=== PATIENT | female | born 1960 | race Caucasian/White ===

== ENCOUNTER 2017-01-17 00:51 | Emergency (ER) | payer MEDICAID ==
[~2017-01-17] VITALS: Ht 152.4 cm; Wt 63.5 kg
[~2017-01-17 00:51] MED LIST: ALBUTEROL-200 PUFFS/ IH; ALBUTEROL2.5 MG/NEB IN; AMOXICILLIN500 M2 PO; CLARITIN 10MG T10 MG PO; FERROUS SULFAT325 M2 PO; HYDROXYZINE 25M25 MG PO; IPRATROPIUM 2.2.5 ML IH; LEVAQUIN500 MG PO; NICODERM C21 MG/24 H TD; OMNICEF 300 MG300 MG PO; PAXIL20 MG NG; PREDNISONE 20MG20 MG PO; SIMVASTATIN20 MG PO; SYMBICORT1 AE1 IH; VICODIN 5/500 T1 TAB PO; ZANTAC 150MG T150 MG PO; ZITHROMAX Z PA250 MG PO; ZITHROMAX Z-PA250 M1 PO; ZITHROMAX Z-PA250 M2 PO
[2017-01-17 00:53] VITALS: BP 106/68
--- NOTE | 2017-01-17 01:03 | Emergency Room Report ---
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 N Clinical Suspician of Infection? Y Mental Status: 1 - Regular (Normal Baseline) Sepsis Risk:Severe Sepsis Risk Have you (or family members/close friends) recently traveled outside the [place]? N If Yes, where/when: Have you had exposure to infectious disease within the past month? TB? Other? 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 No Angina: No [place]: No Hypertension? No Hyperlipidemia? Yes CHF? No DVT? No PE? No COPD? Yes Asthma? Yes Anemia? No GERD? No Gastric ulcers? No GI Bleed? No Hernia? No Thyroid Problems? No Hypothyroidism? No CVA? No Seizures? No Diabetes? No Renal Insuffiency? No End Stage Renal Disease? No UTI? Yes Stones? Yes BPH? No GB Disease: Yes Nephritic Syndrome? No Asplenia? No Hepatitis? No Sickle Cell Disease? No Arthritis? No Migraines? No Cataracts? No Glaucoma? No MRSA? No HIV? No TB? No Anxiety? No Depression? No Cancer? 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 Respiratory see HPI, cough, shortness of breath, wheezing Cardiovascular denies chest pain, denies palpitations, denies syncope Gastrointestinal denies abdominal pain, denies diarrhea, denies vomiting Genitourinary denies: dysuria, frequency, hesitancy, hematuria. Musculoskeletal denies back pain, denies joint pain, denies joint swelling, denies neck pain Skin denies rash Psychiatric/Neurological denies headache, denies seizure Physical Exam Vital Signs Vital Signs Date Time Temp Pulse Resp B/P Pulse O2 O2 Flow FiO2 Ox Delivery Rate 01/17 0143 140 28 107/58 60 4 01/17 0108 142 24 94/59 60 4 01/17 0059 145 30 62 01/17 0053 97.9 145 30 106/68 62 6 - WBC >12,000 or <4,000 or 10% bands? 2 or more SIRS Criteria Met? B/P:94/59 MAP:80 Creatinine >2.0? UA output<0.5ml/kg/hr for 2 hrs? Platelet count >100,000? Lactate >2.0mmol/1? INR >1.2 or PTT > than 60 sec? Evidence of Organ Dysfunction? Provider documented clinical suspician of infection? Y Sepsis Criteria Count: 3 Sepsis Risk: Severe Sepsis Risk General Appearance no apparent distress, cachetic Eye Exam - bilateral eye PERRL, bilateral eye EOMI Ear, Nose, Throat dry mm Neck non-tender Respiratory Status Yes: use of accessory muscles, non productive cough. No: respiratory distress. Lung Sounds bilateral: decreased breath sounds, wheezing. Cardiovascular regular rate/rhythm, systolic murmur Peripheral Pulses Pulses normal Yes Gastrointestinal soft Extremities pedal edema Strength 3 Lower Ext (L), 3 Lower Ext (R), 4 Upper Ext (L), 4 Upper Ext (R) Neurologic alert, no motor/sensory deficits Reflexes Reflexes normal No Mental status normal mood/affect Skin chronic clubing and cyanosis upper ext Comments pt with acute change in status with dec resp - pt was intubated and fluids and pressors started - pt was noted to have 101 rectal temp - cxr with et tube ok and see rn noted for her resusictation - pt will be transfered to as no icu beds in [place] - Medical Decision Making LABS/Meds/Orders Pt receiving controlled substance in ED? No Results/Orders Laboratory Tests 01/17/17 0130: Sodium 136, Potassium 4.1, Chloride 99, Carbon Dioxide 29, BUN 26 H, Creatinine 1.0, Estimated Creat Clear 62, Estimated GFR (MDRD) 57 L, Glucose 206 H, Calcium 8.3 L, Total Bilirubin 1.2 H, AST 31, ALT 17, Alkaline Phosphatase 196 H, Creatine Kinase 9 L, CK-MB (CK-2) Rel Index 5.6 H, CK and CKMB Interp < 0.5, Troponin I 0.03, B-Natriuretic Peptide 870 H, Total Protein 6.9, Albumin 3.0 L, Globulin 3.9 H, Albumin/Globulin Ratio 0.8 L 01/17/17 0101: ABG pH 7.36, ABG pCO2 (Temp Corrct 42.0, ABG pO2 (Temp Correct 36.0 *L, ABG HCO3 23.0, ABG Total CO2 24.8, ABG O2 Sat (Calculated) 67 *L, ABG Base Excess -1.9, Nikos Test ACCEPTABLE, Blood Gas Comments RIGHT RADIAL 01/17/17 0100: Lactic Acid 5.0 H, WBC 18.3 H, RBC 3.92 L, Hgb 13.6, Hct 43.3, MCV 110.6 H, RDW 15.7, Plt Count 97 L, MPV 9.2, Gran % 60.3, Gran # 11.0 H, Total Counted 100, Lymphocytes % 34.2, Monocytes % 4.1, Eosinophils % 0.7, Basophils % 0.6, Neutrophils 66, Lymphocytes (Manual) 33, Lymphocytes # 6.3 H, Monocytes (Manual ) 1 L, Monocytes # 0.8, Eosinophils # 0.1, Basophils # 0.1, Platelet Estimate SLIGHT DECREASE, Anisocytosis 1+, PUBS MCHC 31.6 L, MCH 34.9 H Current Medication Orders Sig/Kiara Start time Last Medication Dose Route Stop Time Status Admin Ondansetron HCl 4 MG ONCE ONE 01/17 200 DC 01/17 IV 05/16 0201 0201 Ondansetron HCl 0 .STK-MED ONE 01/17 0156 DC .ROUTE Azithromycin 500 MG ONCE ONE 01/17 0130 DC 01/17 Sodium Chloride 250 ML IV 01/17 022 0140 Ceftriaxone Sodium 1 GM ONCE ONE 01/17 013 DC 01/17 Sodium Chloride 50 ML IV 01/17 015 0130 Methylprednisolone 125 MG ONCE ONE 01/17 130 DCr 01/17 Sodium Succinate IV 01/17 013 0133 Azithromycin 0 .STK-MED ONE 01/17 012 DC IV Ceftriaxone Sodium 0 .STK-MED ONE 01/18 124 DC IV Methylprednisolone 0 .STK-MED ONE 01/18 124 DCr Sodium Succinate .ROUTE Sodium Chloride 100 ML .STK-MED ONE 01/18 124 DC IV Sodium Chloride 250 ML .STK-MED ONE 01/17 123 DC IV Orders Procedure Date/time Status Decision to admit 01/17 015 Active LACTIC ACID FOLLOW UP 01/17 014 Active CULTURE, BLOOD 01/17 010 Active LACTIC ACID 01/17 010 Complete DIFFERENTIAL-WBC 01/17 010 Complete ELECTROCARDIOGRAM REQUEST 01/17 005 Active ARTERIAL BLOOD GAS REQUEST 01/17 0059 Active CHEST-PORTABLE 01/17 005 Active COMPLETE METABOLIC PANEL 01/17 005 Complete CBC WITH AUTO DIFF 01/17 005 Complete CARDIAC ENZYMES 01/17 005 Complete BRAIN NATRIURETIC PEPTIDE 01/17 005 Complete 12 LEAD EKG-SWAPNA (INITIAL) 01/17 0054 Active CM/EKG 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 ST/Twave chgs XRAY/CT/US XRAY/CT/US XRAY chest XR interpretation by reviewed by me Xray Results abnormal (see report) Procedures Intubation Intubation Risks/benefits discussed with pt/guardian? No Time of Intubation 0213 Intubation Method orotracheal Tube Size (cm) 7.5 Medications none Breath Sounds after Intubation: equal Intubation Complications no complications Post Intubation Xray Yes Cath/NG/IV/CPR/Add.Proc Physician assisted procedures Risks/benefits discussed with pt/guardian? No Physician performed Arterial blood draw. Departure Departure Time of Disposition 0120 Disposition DC/XFER from ER to [facility] Clinical Impression Primary Impression: Respiratory arrest Secondary Impressions: CAP (community acquired pneumonia), COPD exacerbation Condition STABLE Patient Instructions [facility] ED Critical Care Critical Care Yes Time spent 75-104 min Vital system(s) involved: Respiratory Failure I was present at bedside for Coordinating pt's care, Interpreting EKGs/Strips , Reviewing lab results, Reviewing old records, Discussing pt condition, Ventilator management, Examining radiographs If Critical Care minutes are documented, the time involved in the performance of seperately reportable procedures was not counted toward critical care time documented. I directly delivered medical care to this critically ill and/or injured patient. Timely evaluation and treatment was necessary to address the significant organ system(s) dysfunction present in this patient. at [id number]
--- NOTE | 2017-01-17 01:03 | Emergency Room Report ---
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 N Clinical Suspician of Infection? Y Mental Status: 1 - Regular (Normal Baseline) Sepsis Risk:Severe Sepsis Risk Have you (or family members/close friends) recently traveled outside the [place]? N If Yes, where/when: Have you had exposure to infectious disease within the past month? TB? Other? 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 No Angina: No [place]: No Hypertension? No Hyperlipidemia? Yes CHF? No DVT? No PE? No COPD? Yes Asthma? Yes Anemia? No GERD? No Gastric ulcers? No GI Bleed? No Hernia? No Thyroid Problems? No Hypothyroidism? No CVA? No Seizures? No Diabetes? No Renal Insuffiency? No End Stage Renal Disease? No UTI? Yes Stones? Yes BPH? No GB Disease: Yes Nephritic Syndrome? No Asplenia? No Hepatitis? No Sickle Cell Disease? No Arthritis? No Migraines? No Cataracts? No Glaucoma? No MRSA? No HIV? No TB? No Anxiety? No Depression? No Cancer? 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 Respiratory see HPI, cough, shortness of breath, wheezing Cardiovascular denies chest pain, denies palpitations, denies syncope Gastrointestinal denies abdominal pain, denies diarrhea, denies vomiting Genitourinary denies: dysuria, frequency, hesitancy, hematuria. Musculoskeletal denies back pain, denies joint pain, denies joint swelling, denies neck pain Skin denies rash Psychiatric/Neurological denies headache, denies seizure Physical Exam Vital Signs Vital Signs Date Time Temp Pulse Resp B/P Pulse O2 O2 Flow FiO2 Ox Delivery Rate 01/17 0143 140 28 107/58 60 4 01/17 0108 142 24 94/59 60 4 01/17 0059 145 30 62 01/17 0053 97.9 145 30 106/68 62 6 - WBC >12,000 or <4,000 or 10% bands? 2 or more SIRS Criteria Met? B/P:94/59 MAP:80 Creatinine >2.0? UA output<0.5ml/kg/hr for 2 hrs? Platelet count >100,000? Lactate >2.0mmol/1? INR >1.2 or PTT > than 60 sec? Evidence of Organ Dysfunction? Provider documented clinical suspician of infection? Y Sepsis Criteria Count: 3 Sepsis Risk: Severe Sepsis Risk General Appearance no apparent distress, cachetic Eye Exam - bilateral eye PERRL, bilateral eye EOMI Ear, Nose, Throat dry mm Neck non-tender Respiratory Status Yes: use of accessory muscles, non productive cough. No: respiratory distress. Lung Sounds bilateral: decreased breath sounds, wheezing. Cardiovascular regular rate/rhythm, systolic murmur Peripheral Pulses Pulses normal Yes Gastrointestinal soft Extremities pedal edema Strength 3 Lower Ext (L), 3 Lower Ext (R), 4 Upper Ext (L), 4 Upper Ext (R) Neurologic alert, no motor/sensory deficits Reflexes Reflexes normal No Mental status normal mood/affect Skin chronic clubing and cyanosis upper ext Comments pt with acute change in status with dec resp - pt was intubated and fluids and pressors started - pt was noted to have 101 rectal temp - cxr with et tube ok and see rn noted for her resusictation - pt will be transfered to as no icu beds in [place] - Medical Decision Making LABS/Meds/Orders Pt receiving controlled substance in ED? No Results/Orders Laboratory Tests 01/17/17 0130: Sodium 136, Potassium 4.1, Chloride 99, Carbon Dioxide 29, BUN 26 H, Creatinine 1.0, Estimated Creat Clear 62, Estimated GFR (MDRD) 57 L, Glucose 206 H, Calcium 8.3 L, Total Bilirubin 1.2 H, AST 31, ALT 17, Alkaline Phosphatase 196 H, Creatine Kinase 9 L, CK-MB (CK-2) Rel Index 5.6 H, CK and CKMB Interp < 0.5, Troponin I 0.03, B-Natriuretic Peptide 870 H, Total Protein 6.9, Albumin 3.0 L, Globulin 3.9 H, Albumin/Globulin Ratio 0.8 L 01/17/17 0101: ABG pH 7.36, ABG pCO2 (Temp Corrct 42.0, ABG pO2 (Temp Correct 36.0 *L, ABG HCO3 23.0, ABG Total CO2 24.8, ABG O2 Sat (Calculated) 67 *L, ABG Base Excess -1.9, Nikos Test ACCEPTABLE, Blood Gas Comments RIGHT RADIAL 01/17/17 0100: Lactic Acid 5.0 H, WBC 18.3 H, RBC 3.92 L, Hgb 13.6, Hct 43.3, MCV 110.6 H, RDW 15.7, Plt Count 97 L, MPV 9.2, Gran % 60.3, Gran # 11.0 H, Total Counted 100, Lymphocytes % 34.2, Monocytes % 4.1, Eosinophils % 0.7, Basophils % 0.6, Neutrophils 66, Lymphocytes (Manual) 33, Lymphocytes # 6.3 H, Monocytes (Manual ) 1 L, Monocytes # 0.8, Eosinophils # 0.1, Basophils # 0.1, Platelet Estimate SLIGHT DECREASE, Anisocytosis 1+, PUBS MCHC 31.6 L, MCH 34.9 H Current Medication Orders Sig/Kiara Start time Last Medication Dose Route Stop Time Status Admin Ondansetron HCl 4 MG ONCE ONE 01/17 200 DC 01/17 IV 05/16 0201 0201 Ondansetron HCl 0 .STK-MED ONE 01/17 0156 DC .ROUTE Azithromycin 500 MG ONCE ONE 01/17 0130 DC 01/17 Sodium Chloride 250 ML IV 01/17 022 0140 Ceftriaxone Sodium 1 GM ONCE ONE 01/17 013 DC 01/17 Sodium Chloride 50 ML IV 01/17 015 0130 Methylprednisolone 125 MG ONCE ONE 01/17 130 DCr 01/17 Sodium Succinate IV 01/17 013 0133 Azithromycin 0 .STK-MED ONE 01/17 012 DC IV Ceftriaxone Sodium 0 .STK-MED ONE 01/18 124 DC IV Methylprednisolone 0 .STK-MED ONE 01/18 124 DCr Sodium Succinate .ROUTE Sodium Chloride 100 ML .STK-MED ONE 01/18 124 DC IV Sodium Chloride 250 ML .STK-MED ONE 01/17 123 DC IV Orders Procedure Date/time Status Decision to admit 01/17 015 Active LACTIC ACID FOLLOW UP 01/17 014 Active CULTURE, BLOOD 01/17 010 Active LACTIC ACID 01/17 010 Complete DIFFERENTIAL-WBC 01/17 010 Complete ELECTROCARDIOGRAM REQUEST 01/17 005 Active ARTERIAL BLOOD GAS REQUEST 01/17 0059 Active CHEST-PORTABLE 01/17 005 Active COMPLETE METABOLIC PANEL 01/17 005 Complete CBC WITH AUTO DIFF 01/17 005 Complete CARDIAC ENZYMES 01/17 005 Complete BRAIN NATRIURETIC PEPTIDE 01/17 005 Complete 12 LEAD EKG-SWAPNA (INITIAL) 01/17 0054 Active 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 ST/Twave chgs XRAY/CT/US XRAY/CT/US XRAY chest XR interpretation by reviewed by me Xray Results abnormal (see report) Procedures Intubation Intubation Risks/benefits discussed with pt/guardian? No Time of Intubation 0213 Intubation Method orotracheal Tube Size (cm) 7.5 Medications none Breath Sounds after Intubation: equal Intubation Complications no complications Post Intubation Xray Yes Cath/NG/IV/CPR/Add.Proc Physician assisted procedures Risks/benefits discussed with pt/guardian? No Physician performed Arterial blood draw. Departure Departure Time of Disposition 0120 Disposition DC/XFER from ER to [facility]osp Clinical Impression Primary Impression: Respiratory arrest Secondary Impressions: CAP (community acquired pneumonia), COPD exacerbation Condition STABLE Patient Instructions [facility] ED Critical Care Critical Care Yes Time spent 75-104 min Vital system(s) involved: Respiratory Failure I was present at bedside for Coordinating pt's care, Interpreting EKGs/Strips , Reviewing lab results, Reviewing old records, Discussing pt condition, Ventilator management, Examining radiographs If Critical Care minutes are documented, the time involved in the performance of seperately reportable procedures was not counted toward critical care time documented. I directly delivered medical care to this critically ill and/or injured patient. Timely evaluation and treatment was necessary to address the significant organ system(s) dysfunction present in this patient. at [id number]
[2017-01-17 01:07] LABS: ALLEN'S TEST ACCEPTABLE; ARTERIAL ABE -1.9 MMOL/L (-2.4-+2.3); ARTERIAL TCO2 24.8 MMOL/L (23-27); OXYGEN 6L
--- OUTSIDE RECORDS SUMMARY | 2017-01-17 01:15 | External Medical Summary Rpt ---
Author Author , Organization [employer] Address Unknown Phone Unavailable Care Team Providers Care Event Staff Member Name Role Phone [facility] ARNOLD, ARNOLD Unavailable Unavailable ARNOLD, ARNOLD Unavailable Unavailable ARNOLD MIN, ARNOLD Unavailable Unavailable MIN ARNOLD MIN, ARNOLD Unavailable Unavailable MIN ARNOLD, NISHI W, Unavailable Unavailable ARNOLD, NISHI W BEINEJUNAID CURTIS, BEINEKE Unavailable Unavailable CELIO CASTRO Unavailable Unavailable BESSON, BESSON Unavailable Unavailable BESSON GREGORIO, BESSON Unavailable Unavailable GREGORIO BESSON, SHASHI A, Unavailable Unavailable BESSON, SHASHI A [facility] Unavailable Unavailable [facility], [facility] HERNANDEZ, HERNANDEZ Unavailable Unavailable [facility] Unavailable Unavailable SERVICE, [facility] Unavailable Unavailable SERVICE, [facility], [facility] Unavailable Unavailable [facility]available Unavailable [facility], [facility] Unavailable Unavailable [facility], [facility] CARON WHITLEY, Unavailable Unavailable CARON DO CRUTCHER Unavailable Unavailable ZAID NAM, Unavailable Unavailable ZAID NAM JORDON MAR, Unavailable Unavailable JORDON MAR [facility] [place] [place] [facility] Unavailable Unavailable [facility], [facility] Unavailable Unavailable TRAN[facility]ATION [facility], [facility] FRYMAN, FRYMAN Unavailable Unavailable FRYMAN EUG, FRYMAN Unavailable Unavailable EUG MONICO TROY, MONICO Unavailable Unavailable TROY BEA MARC S, Unavailable Unavailable BEA MARC S HARPEL MALIHA, HARPEL Unavailable Unavailable MALIHA HARPEL MALIHA, HARPEL Unavailable Unavailable MALIHA ALBERT KRAMER R, Unavailable Unavailable HARPEL ALBERT R [facility] Unavailable Unavailable INC, [facility] Unavailable Unavailable HOSPITAL P, [facility] P FEMI CARLOS A, Unavailable Unavailable FEMI CARLOS [facility] Unavailable Unavailable PCC, [facility], Unavailable Unavailable [facility] GEORGINA CANNON, Unavailable Unavailable GEORGINA CANNON [facility] Unavailable Unavailable [facility] Unavailable [facility]available IM[facility], [facility] Unavailable Unavailable HOLDINGS, [facility] Unavailable Unavailable [facility], [facility], Unavailable Unavailable [facility], Unavailable Unavailable [facility] DIONY HERNANDEZ, Unavailable Unavailable DIONY HERNANDEZ JR DWI, SWAPNA Unavailable Unavailable JR [facility] MED, [facility] Unavailable Unavailable ACTION, [facility] CARLEE RIVAS, CARLEE RIVAS Unavailable Unavailable VERONICAKEWILNER LAMAS, Unavailable Unavailable FERN CABRAL JR, JR Unavailable Unavailable F, FERN MCLEAN JR, EMMETT P, Unavailable Unavailable VINCE PETERSON GREGORY P, Unavailable Unavailable DAMON KC WILLIAM F, Unavailable Unavailable FERN HAYWARD JAMES S, Unavailable Unavailable [facility] & Unavailable Unavailable HOME [facility], [facility], Unavailable Unavailable PLL[facility], [facility] Unavailable Unavailable LAB, [facility] LAB PETTEY JAM, PETTEY Unavailable Unavailable JAM RICE JAM, RICE JAM Unavailable Unavailable [id number], Unavailable Unavailable [id number] Unavailable Unavailable [id number] # [id number], [facility] [id number] # [id number] [facility] Unavailable Unavailable FR[facility] BELL Unavailable Unavailable FRANCHESCA LAST, Unavailable Unavailable SHELBYSTAIFA FRANCHESCA SHALASWil AMI, SHALASH Unavailable Unavailable AMI [facility] Unavailable Unavailable [facility], [facility] Unavailable Unavailable [facility], [facility] SOTINGEANU CURTIS, Unavailable Unavailable SOTINGEANU CURTIS [facility] Unavailable Unavailable [facility], [facility] AHUMADA GRE, AHUMADA Unavailable Unavailable JACK WOOD, Unavailable Unavailable JACK [facility] Unavailable Unavailable [facility] Unavailable Unavailable [facility] Unavailable Unavailable [facility] Unavailable Unavailable PRACTICE, [facility]I, Unavailable Unavailable [facility], Unavailable [facility], Unavailable Unavailable [facility] Purpose Continuity of Care Document - 11-28-2007 through 2016 Problems Code Diagnosis DOS Provider Status J189 PNEUMONIA 12-15-2016 [facility] UNSPECIFIED HOME ORGANISM MEDICAL EQUIPME J449 CHRONIC 12-15-2016 [facility] OBSTRUCTIVE HOME PULMONARY MEDICAL DISEASE UNS EQUIPME R0600 DYSPNEA 12-15-2016 [facility] UNSPECIFIED HOME MEDICAL EQUIPME J209 ACUTE 11-28-2016 [facility] BRONCHITIS UNSPECIFIED I10 ESSENTIAL 10-27-2016 [place] [facility]IMARY [facility] HYPERTENSIO IMAGING ASS N J441 CHRONIC 10-27-2016 [facility] OBSTRUCTIVE PHYSICIANS PULMONARY GROUP DZ W/EXACERBAT ION J984 OTHER 10-27-2016 [place] DISORDERS MEDICAL OF LUNG IMAGING ASS Z720 TOBACCO USE 10-27-2016 [facility] PHYSICIANS GROUP J479 BRONCHIECTA 10-25-2016 [facility] MEDICAL UNCOMPLICAT IMAGING ASS ED R0602 SHORTNESS 10-25-2016 [place] OF BREATH MEDICAL IMAGING ASS R590 LOCALIZED 10-25-2016 [place] ENLARGED MEDICAL LYMPH NODES IMAGING ASS I272 OTHER 10-24-2016 [facility] P HYPERTENSIO N I517 CARDIOMEGAL 10-24-2016 [facility] J8410 PULMONARY 10-24-2016 [facility] P Z9981 DEPENDENCE 10-24-2016 [facility] SUPPLEMENTA INC L OXYGEN R300 DYSURIA 03-30-2016 [facility] I2781 COR 12-28-2015 [facility] [place] [facility] CHRONIC [facility] I509 HEART 12-28-2015 [facility] OF FAILURE THE UNSPECIFIED [place] R0902 HYPOXEMIA 12-28-2015 [facility] THE [place] [id number] OTHER LONG 07-07-2015 [facility] TERM PHYSICIANS CURRENT GROUP DRUG THERAPY Z853 PERSONAL 07-07-2015 [facility] HISTORY PHYSICIANS PRIMARY GROUP MALIG NEOPLASM BREAST R000 TACHYCARDIA 07-06-2015 [facility] UNSPECIFIED PLLC R05 COUGH 07-06-2015 [facility] SERVICE R918 OTHER 07-06-2015 [place] NONSPECIFIC MEDICAL ABNORMAL IMAGING ASS FINDING OF LUNG FIELD 486 PNEUMONIA, 05-18-2015 [facility] ORGANISM HOME UNSPECIFIED MEDICAL EQUIPME 496 CHRONIC 05-18-2015 [facility] OBSTRUCTION MEDICAL NEC EQUIPME 6237 POLYP OF 05-05-2015 [facility] 6260 UNS D/O 05-05-2015 [place] MENSTRUATIO FAMILY N&OTH ABN PRACTICE BLEED FE GNT TRACT 5990 URINARY 01-05-2015 LAB [facility] TRACT [facility]AH INFECTION HOLDINGS SITE NOT SPECIFIED 66136 11-25-2014 [facility]SPORT[facility] ION SER 4660 ACUTE 10-12-2014 [facility] P 515 POSTINFLAMM 10-12-2014 [facility] PULMONARY [facility] P FIBROSIS 05251 OTHER 10-12-2014 [place] DISEASES OF MEDICAL LUNG NOT IMAGING ASS ELSEWHERE CLASSIFIED 60466 SHORTNESS 10-12-2014 [place] OF BREATH MEDICAL IMAGING ASS 7862 COUGH 10-12-2014 [place] [facility] 36313 ASTHMA, 05-26-2014 [facility] UNSPECIFIED PHARMACY , [facility] UNSPECIFIED STATUS 1330 SCABIES 05-24-2014 [facility] MED 1749 MALIGNANT 05-24-2014 [place] NEOPLASM OF MEDICAL BREAST IMAGING ASS UNSPECIFIED SITE 47656 OTHER 05-24-2014 [facility] SPECIFIED N EMERGENCY CARDIAC PHYS DYSRHYTHMIA S 10129 OBSTRUCTIVE 05-24-2014 [facility] CHRONIC N EMERGENCY BRONCHITIS PHYS WITH EXACERBATIO N 65683 OTHER 05-24-2014 [place] DYSPNEA AND MEDICAL IMAGING ASS RESPIRATORY ABNORMALITI ES V103 PERSONAL 05-24-2014 [facility] P NEOPLASM OF BREAST V148 PERSONAL 05-24-2014 [facility] HISTORY [facility] P SPEC MEDICINAL AGTS 2724 OTHER AND 03-12-2014 [facility] UNSPECIFIED MEM HOS[facility] INC HYPERLIPIDE SHOLA 2859 UNSPECIFIED 03-12-2014 [facility] ANEMIA [facility] V700 ROUTINE 03-12-2014 [facility] EXAM@HEALTH CARE FACL 4928 OTHER 05-21-2013 [facility] EMPHYSEMA 51997 REFLUX 05-21-2013 [facility] ESOPHAGITIS 7242 LUMBAGO 05-21-2013 [facility] 7336 TIETZES 05-03-2013 [facility] MIN DISEASE 4619 ACUTE 12-03-2012 [facility] MIN SINUSITIS, UNSPECIFIED 7810 ABNORMAL 07-05-2012 [facility] INVOLUNTARY AMBULANCE MOVEMENTS SERVICE 62056 OSTEOARTHRO 03-08-2012 NURSES S INVLV MX REGISTRY & SITES BUT HOME HE NOT SPEC GEN V5789 OTHER 03-08-2012 NURS[facility] SPECIFIED REGISTRY & REHABILITAT HOME HE ION PROCEDURE OTHER 6272 SYMPTOMATIC 03-01-2012 [facility]L MALIHA MENOPAUSAL/ FEMALE CLIMACTERIC STATES V1322 PERSONAL 03-01-2012 [facility] MALIHA HISTORY OF CERVICAL DYSPLASIA 52815 UNSPECIFIED 02-20-2012 [facility] COPELAND CONSTIPATIO N 5199 UNSPECIFIED 02-09-2012 [place] DISEASE OF MEDICAL IMAGING ASS RESPIRATORY SYSTEM 7856 ENLARGEMENT 02-09-2012 [place] OF LYMPH MEDICAL NODES IMAGING ASS 7850 UNSPECIFIED 02-08-2012 [facility] TACHYCARDIA SERVICE 7851 PALPITATION 02-08-2012 [facility] AMBULANCE SERVICE 88253 HYPOXEMIA 02-08-2012 FRED LAMAS 77080 LUMP OR 11-21-2011 [facility] MALIHA MASS IN BREAST 17901 DYSPLASIA 11-14-2011 [facility] MALIHA OF CERVIX UNSPECIFIED 86240 OTHER 11-14-2011 [place] ABNORMAL MEDICAL FINDING IMAGING ASS RADIOLOGICA L EXAM BREAST 40781 PAP SMER 11-14-2011 [facility] MALIHA CERV W/ATYPICAL SQUAMOUS CELLS UNDET V1041 PERSONAL 11-14-2011 [facility] MAL[facility] HISTORY MALIGNANT NEOPLASM CERVIX UTERI V7612 OTHER 11-14-2011 [place] SCREENING MEDICAL MAMMOGRAM IMAGING ASS V7231 ROUTINE 09-27-2011 [facility] MALI[facility] GYNECOLOGIC AL EXAMINATION V7641 SCREENING 09-27-2011 [facility] MALIHA FOR MALIGNANT NEOPLASM OF THE RECTUM 91372 PAIN IN 03-11-2011 [place] JOINT MEDICAL PELVIC IMAGING ASS REGION AND THIGH 7243 SCIATICA 03-11-2011 [facility] 5110 PLEURISY 07-01-2010 HITESH MIN WITHOUT MENTION EFFUS/[place] [address] PAIN IN 02-23-2010 [facility] PROF SERV 7231 CERVICALGIA 02-23-2010 [facility] PROF SERV 7245 UNSPECIFIED 02-23-2010 [facility] 65969 CHEST PAIN 02-23-2010 [place] UNSPECIFIED MEDICAL IMAGING ASSOCIATES 37075 PAINFUL 02-23-2010 [facility] PROF SERV 92655 OTHER CHEST 02-23-2010 [facility]ANCE SERVICE 63729 PAP SMER 12-15-2009 [facility] W/HI [place] [facility] GRADE SQUAMOUS INTRAEPITH LES V780 SCREENING 12-15-2009 [facility] FOR IRON PHYSICIAN DEFICIENCY GROUP PCC ANEMIA 39707 OTHER 10-16-2009 HITESH, MALAISE AND NISHI Tapai FATIGUE 47530 ESOPHAGEAL 02-27-2009 HITESH, REFLUX NISHI W 5759 UNSPECIFIED 02-27-2009 ARNOLD, DISORDER NISHI W OF GALLBLADDER 2720 PURE 02-10-2009 [place], HYPERCHOLES FRANCHESCA TEROLEMIA 72115 CALCU 02-10-2009 [facility], GALLBLADD FRANCHESCA W/OTH CHOLECYST W/O MENTION OBST 85959 CALCU 02-10-2009 [facility] GALLBLADD ANESTH OF W/O MENTION THE [facility] CHOLECYST/O BST 14767 ABDOMINAL 02-10-2009 [facility], PAIN RIGHT FRANCHESCA UPPER QUADRANT 29068 UNSPECIFIED 12-05-2008 [place] ABNORMAL MEDICAL MAMMOGRAM IMAGING ASSOC[facility]ATES 53258 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-2008 [facility] VISION DEGENERATIO N OF PERIPHERAL RETINA 86403 OTHER SIGN 11-20-2008 [place] AND SYMPTOM MEDICAL IN BREAST IMAGING ASSOC[facility]ATES 51990 ABDOMINAL 10-28-2008 [place] PAIN, MEDICAL UNSPECIFIED IMAGING SITE ASSOCIATES 38363 ABDOMINAL 10-28-2008 [facility], MEM HOS[facility] GENERALIZED INC 06776 ACUTE 10-15-2008 P[facility] GASTRITIS [employer] MENTION OF HEMORRHAGE 34773 WHEEZING 10-15-2008 [facility]ANCE SERVICE 462 ACUTE 07-07-2008 HERNANDEZ, PHARYNGITIS DIONY Liz 44188 DYSPHAGIA 07-07-2008 HERNANDEZ, UNSPECIFIED DIONY Liz 7842 SWELLING 06-30-2008 ARNDONNIE, MASS OR NISHI W [place] IN HEAD AND NECK 37581 ABNORM 06-27-2008 [place] HRT MEDICAL RATE/RHYTHM IMAGING 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 01520 MAMMOGRAPHI 06-27-2008 [place] C MEDICAL MICROCALCIF IMAGING ICATION ASSOCIATES V7388 SPECIAL SCR 2008 [facility] [email or web address] INC EXAMINATION OTH SPEC CHLAMYDIAL DZ V745 SCREENING 2008 [facility] EXAMINATION [place] INC FOR VENEREAL DISEASE V762 SCREENING 2008 [facility] FOR [place] INC MALIGNANT NEOPLASM OF THE CERVIX 6983 LICHENIFICA 05-15-2008 MYLENE PROCTOR AND NISHI W LICHEN SIMPLEX CHRONICUS Medications Na ND Rx Da Fi Fi Am Da Di Ph RX Ph St me C No te ll ll ou ys ag ar # ys at s nt no ma ic us Or Da si cy ia de te s n re d AM 16 03 04 30 10 00 EA Ac OX 71 -2 -[address] ti IC 40 7- 8- 00 00 SI ve IL 29 20 20 47 DE LI 90 17 17 47 N 4 64 PH 50 AR 0 MA MG CY CA OF PS CY UL NT E HI AN A IN C LO 16 03 04 30 30 00 EA Ac RA 71 -2 -[address] ti TA 40 7- 8- 00 00 SI ve DI 48 20 20 48 DE NE 20 17 17 12 3 40 PH 10 AR MA MG CY TA OF BL CY ET NT HI AN A IN C SI 16 03 04 30 30 00 EA Ac MV 71 -2 -[address] ti 40 7- 8- 00 00 SI ve TA 68 20 20 48 DE TI 30 17 17 12 N 3 41 PH 20 AR MA MG CY TA OF BL CY ET NT HI AN A IN C IB 53 03 04 90 30 00 EA Ac UP 74 -2 -[address] ti RO 60 7- 8- 00 00 SI ve FE 46 20 20 48 DE N 40 17 17 12 40 5 43 PH 0 AR MG MA CY TA BL OF ET CY NT HI AN A IN C HY 23 03 04 [address] 15 -2 -[address] ti OX 50 8- 8- 00 00 SI ve YZ 10 20 20 48 DE IN 50 17 17 14 E 1 92 PH HC AR L MA 10 CY MG OF CY TA NT BL HI ET AN A IN C AZ 64 02 03 6. 5 00 EA Ac IT 67 -2 -[address] ti HR 90 3- 1- 0 00 SI ve OM 96 20 20 47 DE YC 10 17 17 73 IN 5 38 PH AR 25 MA 0 CY MG OF TA CY BL NT ET HI AN A IN C FE 57 02 03 60 30 00 EA Ac RR 66 -2 -[address] ti OU 40 7- 1- 00 00 SI ve S 07 20 20 47 DE CONTRERAS 01 17 17 78 LF 0 07 PH AT AR E MA 32 CY 5 MG OF CY TA NT BL HI ET AN A IN C AM 16 02 03 30 10 00 EA Ac OX 71 -0 -[address] ti IC 40 3- 0- 00 00 SI ve IL 29 20 20 47 DE LI 90 17 17 47 N 4 64 PH 50 AR 0 MA MG CY CA OF PS CY UL NT E HI AN A IN C LO 16 02 03 30 30 00 EA Ac RA 71 -0 -[address] ti TA 40 3- 0- 00 00 SI ve DI 48 20 20 47 DE NE 20 17 17 47 3 63 PH 10 AR MA MG CY TA OF BL CY ET NT HI AN A IN C IB 53 02 03 90 30 00 EA Ac UP 74 -0 -[address] ti RO 60 1- 3- 00 00 SI ve FE 46 20 20 47 DE N 40 17 17 44 40 5 86 PH 0 AR MG MA CY TA BL OF ET CY NT HI AN A IN C SI 16 02 03 30 30 00 EA Ac MV 71 -0 -[address] ti 40 1- 3- 00 00 SI ve TA 68 20 20 47 DE TI 30 17 17 44 N 3 87 PH 20 AR MA MG CY TA OF BL CY ET NT HI AN A IN C VE 00 01 02 18 30 00 EA Ac NT 17 -0 -[address] ti OL 30 2- 3- 00 00 SI ve IN 68 20 20 46 DE 22 17 17 19 HF 0 98 PH A AR 90 MA CY MC G OF IN CY ROGER NT LE HI R AN A IN C IB 53 12 01 90 30 00 EA Ac UP 74 -0 -[address] ti RO 60 6- 9- 00 00 SI ve FE 46 20 20 44 DE N 40 16 17 64 40 5 20 PH 0 AR MG MA CY TA BL OF ET CY NT HI AN A IN C IB 53 10 10 5 90 30 RI 90 AR Ac UP 74 -1 -1 .0 TE 39 NO ti RO 60 7- 8- 00 55 LD ve FE 46 20 20 AI N 60 11 11 D RI 80 5 PH CH 0 AR AR MG MA D CY W TA BL 03 ET 93 8 # 03 93 BU 00 10 10 1 40 10 RI 90 AR Ac TA 14 -0 -0 .0 TE 21 NO ti LB 31 6- 6- 00 00 LD ve -A 78 20 20 AI CE 70 11 11 D RI TA 1 PH CH NV AR AR N- MA D CA CY W FF 03 50 93 -3 8 25 # -4 03 0 93 FE 64 04 09 11 90 30 RI 88 AR Ac RR 37 -2 -3 .0 TE 12 NO ti OU 60 9- 0- 00 73 LD ve S 80 20 20 AI CONTRERAS 91 11 11 D RI LF 0 PH CH AT AR AR E MA D 32 CY W 5 MG 03 93 TA 8 BL # ET 03 93 59 06 09 11 8. 30 RI 88 AR Ac 31 -0 -3 50 TE 61 NO ti 00 6- 0- 0 56 LD ve 57 20 20 AI 92 11 11 D RI 0 PH CH AR AR MA D CY W 03 93 8 # 03 93 NA 00 09 09 1 90 30 RI 90 AR Ac ID 14 -3 -3 .0 TE 11 NO ti OX 39 0- 0- 00 93 LD ve EN 90 20 20 AI 80 11 11 D RI SO 1 PH CH DI AR AR UM MA D CY W 55 0 03 MG 93 8 TA # B 03 93 AD 00 09 09 11 60 30 RI 90 AR Ac VA 17 -3 -3 .0 TE 11 NO ti IR 30 0- 0- 00 94 LD ve 69 20 20 AI 10 50 11 11 D RI 0- 0 PH CH 50 AR AR MA D DI CY W SK US 03 93 8 # 03 93 CR 00 03 09 30 30 RI 87 AR Ac ES 31 -0 -3 .0 TE 30 NO ti TO 00 2- 0- 00 75 LD ve R 75 20 20 AI 10 19 11 11 D RI 0 PH CH MG AR AR MA D TA CY W BL ET 03 93 8 # 03 93 CR 00 03 08 30 30 RI 87 AR Ac ES 31 -0 -1 .0 TE 30 NO ti TO 00 2- 1- 00 75 LD ve R 75 20 20 AI 10 19 11 11 D RI 0 PH CH MG AR AR MA D TA CY W BL ET 03 93 8 # 03 93 CR 00 03 06 30 30 RI 87 AR Ac ES 31 -0 -1 .0 TE 30 NO ti TO 00 2- 3- 00 75 LD ve R 75 20 20 AI 10 19 11 11 D RI 0 PH CH MG AR AR MA D TA CY W BL ET 03 93 8 # 03 93 59 06 06 11 8. 30 RI 88 AR Ac 31 -0 -0 50 TE 61 NO ti 00 6- 6- 0 56 LD ve 57 20 20 AI 92 11 11 D RI 0 PH CH AR AR MA D CY W 03 93 8 # 03 93 DI 00 06 06 11 60 30 RI 88 AR Ac CL 78 -0 -0 .0 TE 61 NO ti OF 11 6- 6- 00 57 LD ve EN 78 20 20 AI AC 90 11 11 D RI 1 PH CH SO AR AR D MA D EC CY W 75 03 93 MG 8 # TA 03 B 93 FE 64 04 04 11 90 30 RI 88 AR Ac RR 37 -2 -2 .0 TE 12 NO ti OU 60 9- 9- 00 73 LD ve S 80 20 20 AI CONTRERAS 91 11 11 D RI LF 0 PH CH AT AR AR E MA D 32 CY W 5 MG 03 93 TA 8 BL # ET 03 93 CR 00 03 04 30 30 RI 87 AR Ac ES 31 -0 -1 .0 TE 30 NO ti TO 00 2- 6- 00 75 LD ve R 75 20 20 AI 10 19 11 11 D RI 0 PH CH MG AR AR MA D TA CY W BL ET 03 93 8 # 03 93 FE 64 03 03 60 30 RI 87 AR Ac RR 37 -0 -0 .0 TE 30 NO ti OU 60 2- 2- 00 74 LD ve S 80 20 20 AI CONTRERAS 91 11 11 D RI LF 0 PH CH AT AR AR E MA D 32 CY W 5 MG 03 93 TA 8 BL # ET 03 93 CR 00 03 03 30 30 RI 87 AR Ac ES 31 -0 -0 .0 TE 30 NO ti TO 00 2- 2- 00 75 LD ve R 75 20 20 AI 10 19 11 11 D RI 0 PH CH MG AR AR MA D TA CY W BL ET 03 93 8 # 03 93 AD 00 02 02 11 60 30 RI 87 AR Ac VA 17 -1 -1 .0 TE 12 NO ti IR 30 8- 8- 00 14 LD ve 69 20 20 AI 25 60 11 11 D RI 0- 0 PH CH 50 AR AR MA D DI CY W SK US 03 93 8 # 03 93 CR 00 02 01 30 30 RI 82 AR Ac ES 31 -1 -1 .0 TE 11 NO ti TO 00 2- 0- 00 41 LD ve R 75 20 20 AI 10 19 10 11 D RI 0 PH CH MG AR AR MA D TA CY W BL ET 03 93 8 # 03 93 CR 00 02 12 30 30 RI 82 AR Ac ES 31 -1 -0 .0 TE 11 NO ti TO 00 2- 2- 00 41 LD ve R 75 20 20 AI 10 19 10 10 D RI 0 PH CH MG AR AR MA D TA CY W BL ET 03 93 8 # 03 93 AM 00 10 12 1 30 10 RI 85 AR Ac OX 78 -2 -0 .0 TE 58 NO ti IC 12 8- 2- 00 38 LD ve IL 61 20 20 AI LI 30 10 10 D RI N 5 PH CH 50 AR AR 0 MA D MG CY W CA 03 PS 93 UL 8 E # 03 93 53 11 12 1 30 7 RI 85 AR Ac 74 -0 -0 .0 TE 71 NO ti 60 6- 2- 00 12 LD ve 11 20 20 AI 90 10 10 D RI 1 PH CH AR AR MA D CY W 03 93 8 # 03 93 FE 00 02 12 60 30 RI 82 AR Ac RR 67 -1 -0 .0 TE 11 NO ti OU 70 2- 2- 00 40 LD ve S 07 20 20 AI CONTRERAS 00 10 10 D RI LF 1 PH CH AT AR AR E MA D 32 CY W 5 MG 03 93 TA 8 BL # ET 03 93 AD 00 11 11 60 30 RI 85 AR Ac VA 17 -1 -1 .0 TE 88 NO ti IR 30 9- 9- 00 59 LD ve 69 20 20 AI 25 60 10 10 D RI 0- 0 PH CH 50 AR AR MA D DI CY W SK US 03 93 8 # 03 93 53 11 11 1 30 7 RI 85 AR Ac 74 -0 -0 .0 TE 71 NO ti 60 6- 6- 00 12 LD ve 11 20 20 AI 90 10 10 D RI 1 PH CH AR AR MA D CY W 03 93 8 # 03 93 00 11 11 1 40 10 RI 85 AR Ac 60 -0 -0 .0 TE 70 NO ti 35 5- 5- 00 37 LD ve 46 20 20 AI 82 10 10 D RI 8 PH CH AR AR MA D CY W 03 93 8 # 03 93 AM 00 10 10 1 30 10 RI 85 AR Ac OX 78 -2 -2 .0 TE 58 NO ti IC 12 8- 8- 00 38 LD ve IL 61 20 20 AI LI 30 10 10 D RI N 5 PH CH 50 AR AR 0 MA D MG CY W CA 03 PS 93 UL 8 E # 03 93 ME 00 10 10 1 21 6 RI 85 AR Ac TH 60 -2 -2 .0 TE 58 NO ti YL 34 8- 8- 00 39 LD ve ID 59 20 20 AI ED 31 10 10 D RI NI 5 PH CH SO AR AR LO MA D NE CY W 4 03 MG 93 8 DO # SE 03 PK 93 00 10 10 1 30 7 RI 85 AR Ac 40 -2 -2 .0 TE 58 NO ti 60 8- 8- 00 40 LD ve 35 20 20 AI 80 10 10 D RI 1 PH CH AR AR MA D CY W 03 93 8 # 03 93 CR 00 02 10 30 30 RI 82 AR Ac ES 31 -1 -0 .0 TE 11 NO ti TO 00 2- 9- 00 41 LD ve R 75 20 20 AI 10 19 10 10 D RI 0 PH CH MG AR AR MA D TA CY W BL ET 03 93 8 # 03 93 AD 00 11 09 60 30 RI 80 AR Ac VA 17 -0 -2 .0 TE 66 NO ti IR 30 2- 1- 00 74 LD ve 69 20 20 AI 25 60 09 10 D RI 0- 0 PH CH 50 AR AR MA D DI CY W SK US 03 93 8 # 03 93 CR 00 02 07 30 30 RI 82 AR Ac ES 31 -1 -2 .0 TE 11 NO ti TO 00 2- 2- 00 41 LD ve R 75 20 20 AI 10 19 10 10 D RI 0 PH CH MG AR AR MA D TA CY W BL ET 03 93 8 # 03 93 AM 65 07 07 1 30 10 RI 84 AR Ac OX 86 -0 -0 .0 TE 10 NO ti IC 20 9- 9- 00 67 LD ve IL 01 20 20 AI LI 70 10 10 D RI N 5 PH CH 50 AR AR 0 MA D MG CY W CA 03 PS 93 UL 8 E # 03 93 FE 00 02 07 60 30 RI 82 AR Ac RR 67 -1 -0 .0 TE 11 NO ti OU 70 2- 8- 00 40 LD ve S 07 20 20 AI CONTRERAS 00 10 10 D RI LF 1 PH CH AT AR AR E MA D 32 CY W 5 MG 03 93 TA 8 BL # ET 03 93 AZ 00 06 06 6. 5 RI 83 SW Ac IT 78 -2 -2 00 TE 91 EE ti HR 11 3- 3- 0 62 NE ve OM 49 20 20 AI Y YC 66 10 10 D GR IN 8 PH EG AR OR 25 MA Y 0 CY D MG 03 TA 93 BL 8 ET # 03 93 00 06 06 20 5 RI 83 SW Ac 40 -2 -2 .0 TE 91 EE ti 60 2- 3- 00 64 NE ve 35 20 20 AI Y 70 10 10 D GR 5 PH EG AR OR MA Y CY D 03 93 8 # 03 93 AD 00 11 06 60 30 RI 80 AR Ac VA 17 -0 -0 .0 TE 66 NO ti IR 30 2- 1- 00 74 LD ve 69 20 20 AI 25 60 09 10 D RI 0- 0 PH CH 50 AR AR MA D DI CY W SK US 03 93 8 # 03 93 CE 00 02 06 30 30 RI 82 AR Ac RO 53 -1 -0 .0 TE 11 NO ti 63 2- 1- 00 39 LD ve TE 44 20 20 AI 23 10 10 D RI AD 8 PH CH VA AR AR NC MA D ED CY W FO 03 RM 93 8 TA # B 03 93 00 05 05 9. 30 RI 83 AR Ac 09 -2 -2 00 TE 59 NO ti 30 9- 9- 0 02 LD ve 22 20 20 AI 49 10 10 D RI 0 PH CH AR AR MA D CY W 03 93 8 # 03 93 FE 00 02 04 60 30 RI 82 AR Ac RR 67 -1 -1 .0 TE 11 NO ti OU 70 2- 4- 00 40 LD ve S 07 20 20 AI CONTRERAS 00 10 10 D RI LF 1 PH CH AT AR AR E MA D 32 CY W 5 MG 03 93 TA 8 BL # ET 03 93 AD 00 11 04 60 30 RI 80 AR Ac VA 17 -0 -1 .0 TE 66 NO ti IR 30 2- 1- 00 74 LD ve 69 20 20 AI 25 60 09 10 D RI 0- 0 PH CH 50 AR AR MA D DI CY W SK US 03 93 8 # 03 93 ID 37 03 03 11 56 28 RI 82 AR Ac IL 00 -3 -3 .0 TE 79 NO ti OS 00 1- 1- 00 12 LD ve EC 45 20 20 AI 50 10 10 D RI OT 3 PH CH C AR AR 20 MA D .6 CY W MG 03 93 TA 8 BL # ET 03 93 CE 16 03 03 2 30 30 RI 82 AR Ac TI 71 -1 -1 .0 TE 47 NO ti RI 40 0- 0- 00 55 LD ve ZI 27 20 20 AI NE 10 10 10 D RI 2 PH CH HC AR AR L MA D 10 CY W MG 03 93 TA 8 BL # ET 03 93 AZ 59 03 03 1 6. 5 RI 82 AR Ac IT 76 -0 -0 00 TE 44 NO ti HR 23 8- 8- 0 55 LD ve OM 06 20 20 AI YC 00 10 10 D RI IN 1 PH CH AR AR 25 MA D 0 CY W MG 03 TA 93 BL 8 ET # 03 93 LO 00 03 03 30 30 RI 82 AR Ac RA 78 -0 -0 .0 TE 44 NO ti TA 15 8- 8- 00 56 LD ve DI 07 20 20 AI NE 70 10 10 D RI 1 PH CH 10 AR AR MA D MG CY W TA 03 BL 93 ET 8 # 03 93 CE 00 02 02 00 30 30 RI 82 AR Ac RO 53 -1 -2 .0 TE 11 NO ti 63 2- 6- 00 39 LD ve TE 44 20 20 AI 23 10 10 D RI AD 8 PH CH VA AR AR NC M D ED #3 W 93 FO 8 RM TA B CR 00 02 02 00 30 30 RI 82 AR Ac ES 31 -1 -2 .0 TE 11 NO ti TO 00 2- 6- 00 41 LD ve R 75 20 20 AI 10 19 10 10 D RI 0 PH CH MG AR AR M D TA #3 W BL 93 ET 8 FE 00 02 02 00 60 30 RI 82 AR Ac RR 67 -1 -2 .0 TE 11 NO ti OU 70 2- 6- 00 40 LD ve S 07 20 20 AI CONTRERAS 00 10 10 D RI LF 1 PH CH AT AR AR E M D 32 #3 W 5 93 MG 8 TA BL ET 59 10 02 00 8. 16 RI 80 AR Ac 31 -0 -1 50 TE 23 NO ti 00 1- 1- 0 96 LD ve 57 20 20 AI 92 09 10 D RI 0 PH CH AR AR M D #3 W 93 8 AD 00 11 01 01 60 30 RI 80 AR Ac VA 17 -0 -1 .0 TE 66 NO ti IR 30 2- 4- 00 74 LD ve 69 20 20 AI 25 60 09 10 D RI 0- 0 PH CH 50 AR AR M D DI #3 W SK 93 US 8 LO 00 11 11 00 30 30 RI 80 AR Ac RA 78 -1 -1 .0 TE 81 NO ti TA 15 1- 9- 00 16 LD ve DI 07 20 20 AI NE 70 09 09 D RI 1 PH CH 10 AR AR M D MG #3 W 93 TA 8 BL ET AZ 59 11 11 00 6. 5 RI 80 AR Ac IT 76 -1 -1 00 TE 81 NO ti HR 23 1- 9- 0 17 LD ve OM 06 20 20 AI YC 00 09 09 D RI IN 1 PH CH AR AR 25 M D 0 #3 W MG 93 8 TA BL ET AD 00 11 11 00 60 30 RI 80 AR Ac VA 17 -0 -1 .0 TE 66 NO ti IR 30 2- 9- 00 74 LD ve 69 20 20 AI 25 60 09 09 D RI 0- 0 PH CH 50 AR AR M D DI #3 W SK 93 US 8 CI 00 10 10 00 20 10 RI 80 AR Ac ID 17 -1 -2 .0 TE 43 NO ti OF 25 5- 2- 00 05 LD ve LO 31 20 20 AI XA 26 09 09 D RI CI 0 PH CH N AR AR HC M D L #3 W 50 93 0 8 MG TA B BE 65 10 10 00 30 10 RI 80 AR Ac NZ 16 -0 -0 .0 TE 23 NO ti ON 20 1- 8- 00 78 LD ve AT 53 20 20 AI AT 71 09 09 D RI E 0 PH CH 20 AR AR 0 M D MG #3 W 93 CA 8 PS UL E AZ 59 10 10 00 6. 5 RI 80 AR Ac IT 76 -0 -0 00 TE 23 NO ti HR 23 1- 8- 0 76 LD ve OM 06 20 20 AI YC 00 09 09 D RI IN 1 PH CH AR AR 25 M D 0 #3 W MG 93 8 TA BL ET AD 00 09 09 04 60 30 EA 99 AR Ac VA 17 -1 -[address] 44 NO ti IR 30 1- 0- 00 SI 29 LD ve 69 20 20 DE 25 60 08 09 RI 0- 0 PH CH 50 AR AR MA D DI CY W SK US OF CY NT HI AN A AZ 00 06 09 01 6. 5 EA 13 AR Ac IT 09 -2 -[address] 29 NO ti HR 37 6- 0- 0 SI 10 LD ve OM 14 20 20 DE YC 61 09 09 RI IN 8 PH CH AR AR 25 MA D 0 CY W MG OF TA CY BL NT ET HI AN A CY 00 03 09 01 40 14 EA 11 AR Ac CL 59 -0 -[address] 71 NO ti OB 13 3- 0- 00 SI 10 LD ve EN 25 20 20 DE ZA 60 09 09 RI ID 1 PH CH IN AR AR E MA D 5 CY W MG OF TA CY BL NT ET HI AN A CR 00 10 08 03 30 30 EA 99 AR Ac ES 31 -2 -[address] 97 NO ti TO 00 3- 7- 00 SI 92 LD ve R 75 20 20 DE 10 19 08 09 RI 0 PH CH MG AR AR MA D TA CY W BL ET OF CY NT HI AN A 00 06 07 00 30 5 EA 13 AR Ac 59 -2 -[address] 29 NO ti 10 6- 2- 00 SI 12 LD ve 34 20 20 DE 90 09 09 RI 1 PH CH AR AR MA D CY W OF CY NT HI AN A 60 06 07 00 24 6 EA 13 AR Ac 25 -2 -[address] 29 NO ti 80 6- 2- 00 SI 11 LD ve 23 20 20 0 DE 91 09 09 RI 6 PH CH AR AR MA D CY W OF CY NT HI AN A 00 06 07 00 30 5 EA 13 SC Ac 59 -1 -[address] 14 HU ti 10 5- 2- 00 SI 55 LS ve 34 20 20 DE TA 90 09 09 D 1 PH CA AR MP MA BE CY LL K OF CY NT HI AN A AZ 00 06 07 00 6. 5 EA 13 AR Ac IT 09 -2 -[address] 29 NO ti HR 37 6- 2- 0 SI 10 LD ve OM 14 20 20 DE YC 61 09 09 RI IN 8 PH CH AR AR 25 MA D 0 CY W MG OF TA CY BL NT ET HI AN A RA 64 06 07 00 60 30 EA 13 AR Ac NI 67 -2 -[address] 29 NO ti TI 90 6- 2- 00 SI 13 LD ve DI 90 20 20 DE NE 60 09 09 RI 3 PH CH 15 AR AR 0 MA D MG CY W TA OF BL CY ET NT HI AN A 00 06 06 00 30 5 EA 13 SC Ac 59 -0 -[address] 08 HU ti 10 9- 8- 00 SI 06 LS ve 38 20 20 DE TA 50 09 09 D 1 PH CA AR MP MA BE CY LL K OF CY NT HI AN A AM 00 06 06 00 30 10 EA 13 AR Ac OX 78 -0 -[address] 02 NO ti IC 12 5- 8- 00 SI 92 LD ve IL 61 20 20 DE LI 30 09 09 RI N 5 PH CH 50 AR AR 0 MA D MG CY W CA OF PS CY UL NT E HI AN A V- 51 05 06 00 30 30 EA 12 AR Ac C 99 -1 -[address] 80 NO ti FO 10 9- 4- 00 SI 69 LD ve RT 64 20 20 DE E 50 09 09 RI CA 1 PH CH PS AR AR UL MA D E CY W OF CY NT HI AN A AD 00 09 05 03 60 30 EA 99 AR Ac VA 17 -1 -[address] 44 NO ti IR 30 1- 1- 00 SI 29 LD ve 69 20 20 DE 25 60 08 09 RI 0- 0 PH CH 50 AR AR MA D DI CY W SK US OF CY NT HI AN A ID 00 10 05 03 30 30 EA 99 ROGER Ac EM 04 -2 -[address] 98 RP ti AR 61 3- 1- 00 SI 00 EL ve IN 10 20 20 DE 49 08 09 GE 1. 1 PH RA 25 AR LD MA R MG CY TA OF BL CY ET NT HI AN A 00 04 04 00 20 4 EA 12 SC Ac 59 -0 -[address] 27 HU ti 10 9- 3- 00 SI 65 LS ve 34 20 20 DE TA 90 09 09 D 1 PH CA AR MP MA BE CY LL K OF CY NT HI AN A 00 04 04 00 20 4 EA 12 SC Ac 59 -1 -[address] 31 HU ti 10 3- 3- 00 SI 35 LS ve 34 20 20 DE TA 90 09 09 D 1 PH CA AR MP MA BE CY LL K OF CY NT HI AN A TR 60 03 04 01 40 10 EA 11 AR Ac AM 50 -2 -[address] 98 NO ti AD 50 0- 3- 00 SI 53 LD ve OL 17 20 20 DE 10 09 09 RI HC 8 PH CH L AR AR 50 MA D CY W MG OF TA CY BL NT ET HI AN A 00 04 04 00 30 4 EA 12 SC Ac 59 -0 -[address] 19 HU ti 10 3- 9- 00 SI 56 LS ve 38 20 20 DE TA 50 09 09 D 1 PH CA AR MP MA BE CY LL K OF CY NT HI AN A BU 00 03 04 00 60 30 EA 12 AR Ac ID 18 -3 -[address] 11 NO ti OP 50 0- 9- 00 SI 94 LD ve IO 41 20 20 DE N 56 09 09 RI HC 0 PH CH L AR AR SR MA D CY W 15 0 OF MG CY NT TA HI BL AN ET A TR 60 03 03 00 40 10 EA 11 AR Ac AM 50 -2 -[address] 98 NO ti AD 50 0- 6- 00 SI 53 LD ve OL 17 20 20 DE 10 09 09 RI HC 8 PH CH L AR AR 50 MA D CY W MG OF TA CY BL NT ET HI AN A AD 00 09 03 02 60 30 EA 99 AR Ac VA 17 -1 -[address] 44 NO ti IR 30 1- 2- 00 SI 29 LD ve 69 20 20 DE 25 60 08 09 RI 0- 0 PH CH 50 AR AR MA D DI CY W SK US OF CY NT HI AN A ID 00 10 03 02 30 30 EA 99 ROGER Ac EM 04 -2 -[address] 98 RP ti AR 61 3- 2- 00 SI 00 EL ve IN 10 20 20 DE 49 08 09 GE 1. 1 PH RA 25 AR LD MA R MG CY TA OF BL CY ET NT HI AN A CR 00 10 03 02 30 30 EA 99 AR Ac ES 31 -2 -[address] 97 NO ti TO 00 3- 2- 00 SI 92 LD ve R 75 20 20 DE 10 19 08 09 RI 0 PH CH MG AR AR MA D TA CY W BL ET OF CY NT HI AN A AM 00 02 03 01 30 10 EA 11 AR Ac OX 78 -1 -[address] 52 NO ti IC 12 8- 2- 00 SI 69 LD ve IL 61 20 20 DE LI 30 09 09 RI N 5 PH CH 50 AR AR 0 MA D MG CY W CA OF PS CY UL NT E HI AN A CY 00 03 03 00 40 14 EA 11 AR Ac CL 59 -0 -[address] 71 NO ti OB 13 3- 2- 00 SI 10 LD ve EN 25 20 20 DE ZA 60 09 09 RI ID 1 PH CH IN AR AR E MA D 5 CY W MG OF TA CY BL NT ET HI AN A AM 00 02 02 00 30 10 EA 11 AR Ac OX 78 -1 -[address] 52 NO ti IC 12 8- 6- 00 SI 69 LD ve IL 61 20 20 DE LI 30 09 09 RI N 5 PH CH 50 AR AR 0 MA D MG CY W CA OF PS CY UL NT E HI AN A 49 02 02 00 28 14 EA 11 GA Ac 88 -1 -[address] 45 IN ti 40 2- 6- 00 SI 12 EY ve 54 20 20 DE 41 09 09 NV 0 PH CH AR AE MA L CY S OF CY NT HI AN A 60 02 02 00 24 6 EA 11 AR Ac 25 -1 -[address] 52 NO ti 80 8- 6- 00 SI 70 LD ve 23 20 20 0 DE 91 09 09 RI 6 PH CH AR AR MA D CY W OF CY NT HI AN A ID 00 10 01 01 30 30 EA 99 ROGER Ac EM 04 -2 -[address] 98 RP ti AR 61 3- 5- 00 SI 00 EL ve IN 10 20 20 DE 49 08 09 GE 1. 1 PH RA 25 AR LD MA R MG CY TA OF BL CY ET NT HI AN A AD 00 09 01 01 60 30 EA 99 AR Ac VA 17 -1 -[address] 44 NO ti IR 30 1- 5- 00 SI 29 LD ve 69 20 20 DE 25 60 08 09 RI 0- 0 PH CH 50 AR AR MA D DI CY W SK US OF CY NT HI AN A CR 00 10 01 01 30 30 EA 99 AR Ac ES 31 -2 -[address] 97 NO ti TO 00 3- 5- 00 SI 92 LD ve R 75 20 20 DE 10 19 08 09 RI 0 PH CH MG AR AR MA D TA CY W BL ET OF CY NT HI AN A TR 60 11 12 01 60 15 EA 10 AR Ac AM 50 -0 -[address] 10 NO ti AD 50 2- 4- 00 SI 33 LD ve OL 17 20 20 DE 10 08 08 RI HC 8 PH CH L AR AR 50 MA D CY W MG OF TA CY BL NT ET HI AN A 60 11 11 00 24 5 EA 10 AR Ac 25 -0 -[address] 10 NO ti 80 2- 0- 00 SI 31 LD ve 23 20 20 0 DE 91 08 08 RI 6 PH CH AR AR MA D CY W OF CY NT HI AN A AM 00 11 11 00 30 10 EA 10 AR Ac OX 78 -0 -[address] 10 NO ti IC 12 2- 0- 00 SI 32 LD ve IL 61 20 20 DE LI 30 08 08 RI N 5 PH CH 50 AR AR 0 MA D MG CY W CA OF PS CY UL NT E HI AN A TR 60 11 11 00 60 15 EA 10 AR Ac AM 50 -0 -[address] 10 NO ti AD 50 2- 0- 00 SI 33 LD ve OL 17 20 20 DE 10 08 08 RI HC 8 PH CH L AR AR 50 MA D CY W MG OF TA CY BL NT ET HI AN A CR 00 10 11 00 30 30 EA 99 AR Ac ES 31 -2 -[address] 97 NO ti TO 00 3- 7- 00 SI 92 LD ve R 75 20 20 DE 10 19 08 08 RI 0 PH CH MG AR AR MA D TA CY W BL ET OF CY NT HI AN A ID 00 10 11 00 30 30 EA 99 ROGER Ac EM 04 -2 -[address] 98 RP ti AR 61 3- 7- 00 SI 00 EL ve IN 10 20 20 DE 49 08 08 GE 1. 1 PH RA 25 AR LD MA R MG CY TA OF BL CY ET NT HI AN A 00 09 09 00 80 10 EA 99 No Ac 47 -1 -[address] 44 t ti 20 1- 6- 00 SI 31 Av ve 30 20 20 DE ai 18 08 08 la 0 PH bl AR e MA CY OF CY NT HI AN A AD 00 09 09 00 60 30 EA 99 No Ac VA 17 -1 -[address] 44 t ti IR 30 1- 6- 00 SI 29 Av ve 69 20 20 DE ai 25 60 08 08 la 0- 0 PH bl 50 AR e MA DI CY SK US OF CY NT HI AN A HY 00 09 09 00 90 30 EA [address] 55 -1 -[address] 44 t ti OX 50 1- 6- 00 SI 30 Av ve YZ 32 20 20 DE ai IN 30 08 08 la E 4 PH bl PA AR e M MA 25 CY MG OF CY CA NT P HI AN A 00 09 00 90 30 EA 99 No Ac 59 -1 -[address] 46 t ti 15 3- 6- 00 SI 94 Av ve 52 20 20 DE ai 20 08 08 la 1 PH bl AR e MA CY OF CY NT HI AN A ID 00 09 09 00 30 30 EA 99 No Ac EM 04 -0 -[address] 29 t ti AR 61 2- 1- 00 SI 82 Av ve IN 10 20 20 DE ai 49 08 08 la 1. 1 PH bl 25 AR e MA MG CY TA OF BL CY ET NT HI AN A CR 00 08 08 00 30 30 EA 99 No Ac ES 31 -1 -[address] 05 t ti TO 00 2- 8- 00 SI 60 Av ve R 75 20 20 DE ai 10 19 08 08 la 0 PH bl MG AR e MA TA CY BL ET OF CY NT HI AN A 00 08 08 00 14 20 EA 99 No Ac 59 -0 -[address] 01 t ti 70 8- 4- 99 SI 35 Av ve 01 20 20 DE ai 31 08 08 la 4 PH bl AR e MA CY OF CY NT HI AN A CE 00 08 08 00 20 10 EA 99 No Ac PH 09 -0 -[address] 01 t ti AL 33 8- 4- 00 SI 15 Av ve EX 14 20 20 DE ai IN 70 08 08 la 1 PH bl 50 AR e 0 MA MG CY CA OF PS CY UL NT E HI AN A ID 00 07 03 01 10 10 EA 93 No Ac EM 04 -0 -[address] 87 t ti AR 61 5- 6- 00 SI 06 Av ve IN 10 20 20 0 DE ai 48 07 08 la 1. 1 PH bl 25 AR e MA MG CY TA OF BL CY ET NT HI AN A AD 00 09 03 00 60 30 EA 94 No Ac VA 17 -2 -[address] 97 t ti IR 30 9- 6- 00 SI 25 Av ve 69 20 20 DE ai 25 60 07 08 la 0- 0 PH bl 50 AR e MA DI CY SK US OF CY NT HI AN A Procedures Procedure DOS Code Location Performer Comment O2 CONC 1 E1390 JAIR ADAM BALTAZAR PORT 7 HOME HOME 85%/>02 MEDICAL MEDICAL CONC AT EQUIPME EQUIPWY PRS FLW RATE PRTBLE E0431 JAIR DE LOS SANTOSRELL GASEOUS 7 HOME HOME O2 SYS MEDICAL MEDICAL RENT; EQUIPME EQUIPME FLWMTR HUMIDFR&M ASK PRTBLE E0431 JAIR DE LOS SANTOSRELL GASEOUS 7 HOME HOME O2 SYS MEDICAL MEDICAL RENT; EQUIPME EQUIPME FLWMTR HUMIDFR&M ASK O2 CONC 1 E1390 JAIR DE LOS SANTOSSUSANA LEDESMA PORT 7 HOME HOME 85%/>02 [facility]ICAL [facility] FLW RATE RADIOLOGI [address]124 [place] HERNANDEZ C EXAM 7 MEDICAL CHEST 2 IMAGING VIEWS ASS FRONTAL&L [facility] [address] [facility] FRYMAN DISCHARGE 7 PHYSICIAN DAY S GROUP MANAGEMEN T 30 MIN/< FINAL G9638 [place] HERNANDEZ REPORTS 7 MEDICAL W/O DOC IMAGING 1/MORE ASS DOSE REDUCTION TECH FINAL RPT [id number] [facility] CT/MRI 7 MEDICAL CHEST/NCK IMAGING /U/S NO ASS THR NOD<1.[address] THORAX 98780 [place] HERNANDEZ W/O 7 MEDICAL CONTRAST IMAGING MATERIAL ASS ECG 93960 LAMINE OLIVA ROUTINE 7 [facility] W/LEAST P 12 LDS I&R ONLY RADIOLOGI 30360 [place] ZAID C 7 MEDICAL EXAMINATI IMAGING ON CHEST ASS SINGLE VIEW FRONTAL AMB A0427 [facility] SERVICE 7 AMBULANCE AMBULANCE ALS SERVICE SERVICE EMERGENCY TRANSPORT LEVEL 1 GROUND A0425 [facility] MILEAGE 7 AMBULANCE AMBULANCE PER SERVICE SERVICE STATUTE MILE O2 CONC 1 E1390 JAIR DE LOS SANTOSSUSANA LEDESMA PORT 7 HOME HOME 85%/>02 MEDICAL MEDICAL CONC AT [facility] FLW RATE PRTBLE E0431 JAIR ADAM GASEOUS 7 HOME HOME O2 SYS MEDICAL MEDICAL RENT; EQUIPME EQUIPME FLWMTR HUMIDFR&M ASK PRTBLE E0431 JAIR ADAM GASEOUS 7 HOME HOME O2 SYS MEDICAL MEDICAL RENT; EQUIPME EQUIPME FLWMTR HUMIDFR&M ASK O2 CONC 1 E1390 JAIR ADAM DEL PORT 7 HOME HOME 85%/>02 MEDICAL MEDICAL CONC AT EQUIPME EQUIPME PRSC FLW RATE O2 CONC 1 E1390 JAIR ADAM DEL PORT 6 HOME HOME 85%/>02 MEDICAL MEDICAL CONC AT EQUIPME EQUIPME PRSC FLW RATE PRTBLE E0431 JAIR ADAM GASEOUS 6 HOME HOME O2 SYS MEDICAL MEDICAL RENT; EQUIPME EQUIPME FLWMTR HUMIDFR&M ASK PRTBLE E0431 JAIR ADAM GASEOUS 6 HOME HOME O2 SYS MEDICAL MEDICAL RENT; EQUIPME EQUIPME FLWMTR HUMIDFR&M ASK O2 CONC 1 E1390 JAIR ADAM DEL PORT 6 HOME HOME 85%/>02 MEDICAL MEDICAL CONC AT EQUIPME EQUIPME PRSC FLW RATE O2 CONC 1 E1390 JAIR ADAM DEL PORT 6 HOME HOME 85%/>02 MEDICAL MEDICAL CONC AT EQUIPME EQUIPME PRSC FLW RATE PRTBLE E0431 JAIR ADAM GASEOUS 6 HOME HOME O2 SYS MEDICAL MEDICAL RENT; EQUIPME EQUIPME FLWMTR HUMIDFR&M ASK PRTBLE E0431 JAIR PANDYA GASEOUS 6 HOME O2 SYS MEDICAL RENT; EQUIPME FLWMTR HUMIDFR&M ASK O2 CONC 1 E1390 JAIR PANDYA DEL PORT 6 HOME 85%/>02 MEDICAL CONC AT EQUIPME PRSC FLW RATE HOSPICE/H Q5001 HOSPICE HOSPICE OME 6 [facility] THE [facility] PROV PT HOME/RESI DENCE VOLUME 20861 COMBINED COMBINED MEASUREME 6 PHYSICIAN PHYSICIAN NT TIMED S LA S LA COLLECTIO N EACH URNLS DIP 81516 COMBINED COMBINED 6 PHYSICIAN PHYSICIAN STICK/TAB S LA S LA LET REAGENT AUTO MICROSCOP Y HOSPICE/H Q5001 HOSPICE HOSPICE OME [address] [facility] PT HOME/RESI DENCE HOSPICE/H Q5001 HOSPICE HOSPICE OME [address] [facility] PT HOME/RESI DENCE HOSPICE/H Q5001 HOSPICE HOSPICE OME [address] [facility] PT HOME/RESI DENCE HOSPICE/H Q5001 HOSPICE HOSPICE OME [address] [facility] PT HOME/RESI DENCE HOSPICE/H Q5001 HOSPICE HOSPICE OME [address] [facility] PT HOME/RESI DENCE HOSPICE/ Q5001 HOSPICE HOSPICE OME [address] [facility] PT HOME/RESI DENCE HOSPICE/ Q5001 HOSPICE HOSPICE OME [address] [facility] PT HOME/RESI DENCE HOSPICE/ Q5001 HOSPICE HOSPICE OME [address] [facility] PT HOME/RESI [facility] [address] MANAGEMEN T 30 MIN/< SBSQ [address] 15 MINUTES SBSQ 15138 [facility] 5 PHYSICIAN [facility] CARE/DAY S GROUP [address] THORAX 53524 [place] YESSICA 5 MEDICAL CURTIS W/CONTRAS IMAGING T ASS MATERIAL RADIOLOGI 03480 [place] ZAID 5 MEDICAL NAM EXAMINATI IMAGING ON CHEST ASS SINGLE VIEW FRONTAL ECG 95095 LAMINE BARCENAS JR ROUTINE [address] [place] [address] W/LEAST P 12 LDS I&R ONLY AMB A0427 [facility] SERVICE 5 AMBULANCE AMBULANCE ALS SERVICE SERVICE EMERGENCY TRANSPORT LEVEL [address] 50 MINUTES CRITICAL 94140 [facility] 5 PHYSICIAN U CURTIS ILL/INJUR S, PLLC ED PATIENT INIT 30-74 MIN GROUND A0425 [facility] AMBULANCE PER SERVICE SERVICE STATUTE MILE PRTBLE E0431 JAIR ADAM GASEOUS 5 HOME HOME O2 SYS MEDICAL MEDICAL RENT; EQUIPME EQUIPME FLWMTR HUMIDFR&M ASK O2 CONC 1 E1390 JAIR OLMEDO 5 HOME HOME 85%/>02 MEDICAL MEDICAL CONC AT EQUIPME EQUIPME PRSC FLW RATE O2 CONC 1 E1390 JAIR OLMEDO 5 HOME HOME 85%/>02 MEDICAL MEDICAL CONC AT EQUIPME EQUIPME PRSC FLW RATE PRTBLE E0431 JAIR ADAM GASEOUS 5 HOME HOME O2 SYS MEDICAL MEDICAL RENT; EQUIPME EQUIPME FLWMTR HUMIDFR&M ASK PRTBLE E0431 JAIR ADAM GASEOUS 5 HOME HOME O2 SYS MEDICAL MEDICAL RENT; EQUIPME EQUIPME FLWMTR HUMIDFR&M ASK O2 CONC 1 E1390 JAIR OLMEDO 5 HOME HOME 85%/>02 MEDICAL MEDICAL CONC AT EQUIPME EQUIPME PRSC FLW RATE CULTURE 59735 [facility] BACTERIAL 5 [facility] [employer] [employer] QUANTTATI VE COLONY COUNT URINE O2 CONC 1 E1390 JAIR OLMEDO 5 HOME HOME 85%/>02 MEDICAL MEDICAL CONC AT EQUIPME EQUIPME PRSC FLW RATE PRTBLE E0431 JAIR ADAM GASEOUS 5 HOME HOME O2 SYS MEDICAL MEDICAL RENT; EQUIPME EQUIPME FLWMTR HUMIDFR&M ASK NONEMERGE A0100 [facility] 5 R TAXI TRANSPORT TRANSPORT ATION; ATION SER TAXI PRTBLE E0431 JAIR ADAM GASEOUS 5 HOME HOME O2 SYS MEDICAL MEDICAL RENT; EQUIPME EQUIPME FLWMTR HUMIDFR&M ASK O2 CONC 1 E1390 JAIR LEDESMA PORT 5 HOME HOME 85%/>02 MEDICAL MEDICAL CONC AT EQUIPME EQUIPME PRSC FLW RATE O2 CONC 1 E1390 JAIR OLMEDO 5 HOME HOME 85%/>02 MEDICAL MEDICAL CONC AT EQUIPME EQUIPME PRSC FLW RATE PRTBLE E0431 JAIR DE LOS SANTOSRELL GASEOUS 5 HOME HOME O2 SYS MEDICAL MEDICAL RENT; EQUIPME EQUIPME FLWMTR HUMIDFR&M ASK RADIOLOGI 04733 LAMINE LAMINE C EXAM 5 [facility] CHEST 2 INC INC VIEWS FRONTAL&L ATERAL PRTBLE E0431 JAIR DE LOS SANTOSRELL GASEOUS 5 HOME HOME O2 SYS MEDICAL MEDICAL RENT; EQUIPME EQUIPME FLWMTR HUMIDFR&M ASK O2 CONC 1 E1390 JAIR ADAM DEL PORT 5 HOME HOME 85%/>02 MEDICAL MEDICAL CONC AT EQUIPME EQUIPME PRSC FLW RATE O2 CONC 1 E1390 JAIR ADAM DEL PORT 4 HOME HOME 85%/>02 MEDICAL MEDICAL CONC AT EQUIPME EQUIPME PRSC FLW RATE PRTBLE E0431 JAIR JAIR GASEOUS 4 HOME HOME O2 SYS MEDICAL MEDICAL RENT; EQUIPME EQUIPME FLWMTR HUMIDFR&M ASK NONEMERG A0120 FED[facility]ATED FEDERATED TRNSPRT: 4 TRANS MINI-BUS TRANSPORT SERVBLUEG MTN ATION SER INES AREA/OTH SYS PRTBLE E0431 JAIR DE LOS SANTOSRELL GASEOUS 4 HOME HOME O2 SYS MEDICAL MEDICAL RENT; EQUIPME EQUIPME FLWMTR HUMIDFR&M ASK O2 CONC 1 E1390 JAIR ADAM DEL PORT 4 HOME HOME 85%/>02 MEDICAL MEDICAL CONC AT EQUIPME EQUIPME PRSC FLW RATE O2 CONC 1 E1390 JAIR ADAM DEL PORT 4 HOME HOME 85%/>02 MEDICAL MEDICAL CONC AT EQUIPME EQUIPME PRSC FLW RATE PRTBLE E0431 JAIR DE LOS SANTOSRELL GASEOUS 4 HOME HOME O2 SYS MEDICAL MEDICAL RENT; EQUIPME EQUIPME FLWMTR HUMIDFR&M ASK BLOOD 46339 LAMINE RAMAN COUNT 4 [facility] COMPLETE INC INC AUTO&AUTO DIFRNTL WBC BASIC 81996 LAMINE RAMAN METABOLIC 4 [facility] PANEL INC INC CALCIUM TOTAL ADMN SET A7005 YOUR YOUR W/SM VOL 4 PHARMACY PHARMACY NONFILTR [facility] NEBULIZR NON-DISPB L HOSPITAL G0378 LAMINE RAMAN OBSERVATI 4 [facility] ON INC INC SERVICE PER HOUR NONINVASI 76563 LAMINE RAMAN VE 4 [facility] EAR/PULSE INC INC OXIMETRY SINGLE DETER PRESSURIZ 92234 LAMINE RAMAN ED/NONPRE 4 [facility] SSURIZED INC INC INHALATIO N TREATMENT OBSERVATI 41411 [place] BESJESS ON CARE 4 [place] [facility] DISCHARGE INTERNAL MED MANAGEMEN T NEBULIZER E0570 JAIR ADAM WITH 4 HOME HOME COMPRESSO MEDICAL MEDICAL R EQUIPME EQUIPME INJECTION J0456 LAMINE RAMAN 4 [facility] AZITHROMY INC INC MARISELA 500 MG INJECTION J0456 LAMINE RAMAN 4 [facility] AZITHROMY INC INC MARISELA 500 MG NONINVASI 50444 LAMINE RAMAN VE 4 [facility] EAR/PULSE INC INC OXIMETRY SINGLE DETER PRESSURIZ 52467 LAMINE RAMAN ED/NONPRE 4 [facility] SSURIZED INC INC INHALATIO N TREATMENT HOSPITAL G0378 LAMINE RAMAN OBSERVATI 4 [facility] ON INC INC SERVICE PER HOUR BASIC 20341 LAMINE RAMAN METABOLIC 4 [facility] PANEL INC INC CALCIUM TOTAL CUL BACT 75713 LAMINE RAMAN XCPT 4 [facility] URINE INC INC BLOOD/STO OL AEROBIC ISOL SMR PRIM 89289 LAMINE RAMAN SRC 4 [facility] GRAM/GIEM INC INC SA STAIN BCT FUNGI/COLLEEN L CULTURE 80715 LAMINE RAMAN BACTERIAL 4 [facility] BLOOD INC INC AEROBIC W/ID ISOLATES BLOOD 44304 LAMINE RAMAN COUNT 4 [facility] COMPLETE INC INC AUTO&AUTO DIFRNTL WBC ECG 02538 [facility] ROUTINE 4 ANTONIETA ECG EMERGENCY W/LEAST PHYS 12 LDS I&R ONLY BLOOD 46396 LAMINE RAMAN GASES ANY 4 [facility] INC INC COMBINATI ON PH PCO2 PO2 CO2 HCO3 NATRIURET 66673 LAMINE RAMAN IC 4 [facility] PEPTIDE INC INC RADIOLOGI 44747 [facility] 4 MEDICAL NAM EXAMINATI IMAGING ON CHEST ASS SINGLE VIEW FRONTAL CT THORAX 69206 JACKELYN MAR 4 MEDICAL NAM W/[place] [address] LAMINE CÁRDENASON TROPONIN 4 [facility] QUANTITAT INC INC [facility] G0378 LAMINE CÁRDENASON OBSERVATI 4 [facility] [place] [address] LAMINE CÁRDENASON ANGIOGRAP 4 [facility] HY CHEST INC INC W/CONTRAS T/NONCONT RAST TOBACCO 35416 LAMINEFLORENCIO RAMAN USE 4 [facility] CESSATION INC INC INTERMEDI ATE 3-10 MINUTES LOCM Q9967 LAMINE RAMAN [phone] 4 [facility] MG/ML INC INC IODINE CONCENTRA TION PER ML COMPREHEN 94795 LAMINE RAMAN SIVE 4 [facility] METABOLIC INC INC PANEL PRESSURIZ 96725 LAMINE RAMAN ED/NONPRE 4 [facility] SSURIZED INC INC INHALATIO N TREATMENT INITIAL 04267 [place] HAZEL QUIROZ 4 [facility] ON INTERNAL CARE/DAY MED 30 MINUTES ECG 39578 LAMINE RAMAN ROUTINE 4 [facility] ECG INC INC W/LEAST 12 LDS TRCG ONLY W/O I&R O2 CONC 1 E1390 JAIR ADAM DEL PORT 4 HOME HOME 85%/>02 MEDICAL MEDICAL CONC AT EQUIPME EQUIPME [facility] FLW RATE PRTBLE E0431 JAIR ADAM GASEOUS 4 HOME HOME O2 SYS MEDICAL MEDICAL RENT; EQUIPME EQUIPME FLWMTR HUMIDFR&M ASK O2 CONC 1 E1390 JAIR ADAM DEL PORT 4 HOME HOME 85%/>02 MEDICAL MEDICAL CONC AT EQUIPME EQUIPME PRS FLW RATE O2 CONC 1 E1390 JAIR ADAM DEL PORT 4 HOME HOME 85%/>02 MEDICAL MEDICAL CONC AT EQUIPME EQUIPME [facility] FLW RATE NONEMERG A0120 [facility] FEDERATED TRNSPRT: 4 TRANS MINI-BUS TRANSPORT SERVBLUEG MTN ATION SER INES AREA/OTH SYS COMPREHEN 19094 LAMINE RAMAN SIVE 4 [facility] [place] [address] LAMINE RAMAN THYROID 4 [facility] STIMULATI INC INC NG HORMONE TSH CULTURE 54846 LAMINE RAMAN BACTERIAL 4 [facility] INC INC QUANTTATI VE COLONY COUNT URINE URNLS DIP 98178 LAMINE RAMAN 4 [facility] STICK/TAB INC INC LET REAGENT AUTO MICROSCOP Y LIPID 35745 LAMINE RAMAN PANEL 4 [facility] INC INC BLOOD 16187 LAMINE RAMAN COUNT 4 [facility] COMPLETE INC INC AUTO&AUTO DIFRNTL WBC PRTBLE E0431 JAIR JAIR GASEOUS 4 HOME HOME O2 SYS MEDICAL MEDICAL RENT; EQUIPME EQUIPME FLWMTR HUMIDFR&M ASK O2 CONC 1 E1390 JAIR ADAM DEL [place] 4 HOME HOME 85%/>02 MEDICAL MEDICAL CONC AT EQUIPME EQUIPME PRSC FLW RATE O2 CONC 1 E1390 JAIR DE LOS SANTOSRELL DEL PORT 4 HOME HOME 85%/>02 MEDICAL MEDICAL CONC AT EQUIPME EQUIPME PRSC FLW RATE PRTBLE E0431 JAIR JAIR GASEOUS 4 HOME HOME O2 SYS MEDICAL MEDICAL RENT; EQUIPME EQUIPME FLWMTR HUMIDFR&M ASK O2 CONC 1 E1390 JAIR DE LOS SANTOSRELL DEL PORT 4 HOME HOME 85%/>02 MEDICAL MEDICAL CONC AT EQUIPME EQUIPME PRSC FLW RATE PRTBLE E0431 JAIR JAIR GASEOUS 4 HOME HOME O2 SYS MEDICAL MEDICAL RENT; EQUIPME EQUIPME FLWMTR HUMIDFR&M ASK PRTBLE E0431 JAIR JAIR GASEOUS 4 HOME HOME O2 SYS MEDICAL MEDICAL RENT; EQUIPME EQUIPME FLWMTR HUMIDFR&M ASK O2 CONC 1 E1390 JAIR JAIR [place] 4 HOME HOME 85%/>02 MEDICAL MEDICAL CONC AT EQUIPME EQUIPME PRSC FLW RATE O2 CONC 1 E1390 JAIR [place] 4 HOME HOME 85%/>02 MEDICAL MEDICAL CONC AT EQUIPME EQUIPME PRSC FLW RATE PRTBLE E0431 JAIR ADAM GASEOUS 4 HOME HOME O2 SYS MEDICAL MEDICAL RENT; EQUIPME EQUIPME FLWMTR HUMIDFR&M ASK PRTBLE E0431 JAIR ADAM GASEOUS 4 HOME HOME O2 SYS MEDICAL MEDICAL RENT; EQUIPME EQUIPME FLWMTR HUMIDFR&M ASK O2 CONC 1 E1390 JAIR [place] 4 HOME HOME 85%/>02 MEDICAL MEDICAL CONC AT EQUIPME EQUIPME PRSC FLW RATE O2 CONC 1 E1390 JAIR [place] 3 HOME HOME 85%/>02 MEDICAL MEDICAL CONC AT EQUIPME EQUIPME PRSC FLW RATE PRTBLE E0431 JAIR ADAM GASEOUS 3 HOME HOME O2 SYS MEDICAL MEDICAL RENT; EQUIPME EQUIPME FLWMTR HUMIDFR&M ASK PRTBLE E0431 JAIR ADAM GASEOUS 3 HOME HOME O2 SYS MEDICAL MEDICAL RENT; EQUIPME EQUIPME FLWMTR HUMIDFR&M ASK O2 CONC 1 E1390 JAIR [place] 3 HOME HOME 85%/>02 MEDICAL MEDICAL CONC AT EQUIPME EQUIPME PRSC FLW RATE O2 CONC 1 E1390 JAIR [place] 3 HOME HOME 85%/>02 MEDICAL MEDICAL CONC AT EQUIPME EQUIPME PRSC FLW RATE PRTBLE E0431 JAIR ADAM GASEOUS 3 HOME HOME O2 SYS MEDICAL MEDICAL RENT; EQUIPME EQUIPME FLWMTR HUMIDFR&M ASK PRTBLE E0431 JAIR ADAM GASEOUS 3 HOME HOME O2 SYS MEDICAL MEDICAL RENT; EQUIPME EQUIPME FLWMTR HUMIDFR&M ASK O2 CONC 1 E1390 JAIR [place] 3 HOME HOME 85%/>02 MEDICAL MEDICAL CONC AT EQUIPME EQUIPME PRSC FLW RATE COMMODE E0163 JAIR ADAM CHAIR 3 HOME HOME MOBILE OR MEDICAL MEDICAL EQUIPME EQUIPME STATIONAR Y W/FIXED ARMS PRTBLE E0431 JAIR ADAM GASEOUS 3 HOME HOME O2 SYS MEDICAL MEDICAL RENT; EQUIPME EQUIPME FLWMTR HUMIDFR&M ASK O2 CONC 1 E1390 JAIR [place] 3 HOME HOME 85%/>02 MEDICAL MEDICAL CONC AT EQUIPME EQUIPME PRSC FLW RATE O2 CONC 1 E1390 JAIR [place] 3 HOME HOME 85%/>02 MEDICAL MEDICAL CONC AT EQUIPME EQUIPME PRSC FLW RATE PRTBLE E0431 JAIR ADAM GASEOUS 3 HOME HOME O2 SYS MEDICAL MEDICAL RENT; EQUIPME EQUIPME FLWMTR HUMIDFR&M ASK PRTBLE E0431 JAIR ADAM GASEOUS 3 HOME HOME O2 SYS MEDICAL MEDICAL RENT; EQUIPME EQUIPME FLWMTR HUMIDFR&M ASK O2 CONC 1 E1390 JAIR [place] 3 HOME HOME 85%/>02 MEDICAL MEDICAL CONC AT EQUIPME EQUIPME PRSC FLW RATE PRTBLE E0431 JAIR ADAM GASEOUS 3 HOME HOME O2 SYS MEDICAL MEDICAL RENT; EQUIPME EQUIPME FLWMTR HUMIDFR&M ASK O2 CONC 1 E1390 JAIR [place] 3 HOME HOME 85%/>02 MEDICAL MEDICAL CONC AT EQUIPME EQUIPME PRSC FLW RATE O2 CONC 1 E1390 JAIR [place] 3 HOME HOME 85%/>02 MEDICAL MEDICAL CONC AT EQUIPME EQUIPME PRSC FLW RATE PRTBLE E0431 JAIR ADAM GASEOUS 3 HOME HOME O2 SYS MEDICAL MEDICAL RENT; EQUIPME EQUIPME FLWMTR HUMIDFR&M ASK NONEMERG A0120 LKLP LKLP TRNSPRT: 3 COMMUNITY COMMUNITY MINI-BUS ACTION ACTION MTN AREA/OTH SYS PRTBLE E0431 JAIR ADAM GASEOUS 3 HOME HOME O2 SYS MEDICAL MEDICAL RENT; EQUIPME EQUIPME FLWMTR HUMIDFR&M ASK O2 CONC 1 E1390 JAIR [place] 3 HOME HOME 85%/>02 MEDICAL MEDICAL CONC AT EQUIPME EQUIPME PRSC FLW RATE O2 CONC 1 E1390 JAIR [place] 3 HOME HOME 85%/>02 MEDICAL MEDICAL CONC AT EQUIPME EQUIPME PRSC FLW RATE PRTBLE E0431 JAIR ADAM GASEOUS 3 HOME HOME O2 SYS MEDICAL MEDICAL RENT; EQUIPME EQUIPME FLWMTR HUMIDFR&M ASK PRTBLE E0431 JAIR ADAM GASEOUS 3 HOME HOME O2 SYS MEDICAL MEDICAL RENT; EQUIPME EQUIPME FLWMTR HUMIDFR&M ASK O2 CONC 1 E1390 JAIR ADAM DEL PORT 3 HOME HOME 85%/>02 MEDICAL MEDICAL CONC AT EQUIPME EQUIPME PRSC FLW RATE O2 CONC 1 E1390 JAIR LEDESMA PORT 2 HOME HOME 85%/>02 MEDICAL MEDICAL CONC AT EQUIPME EQUIPME PRSC FLW RATE PRTBLE E0431 JAIR ADAM GASEOUS 2 HOME HOME O2 SYS MEDICAL MEDICAL RENT; EQUIPME EQUIPME FLWMTR HUMIDFR&M ASK O2 CONC 1 E1390 JAIR LEDESMA PORT 2 HOME HOME 85%/>02 MEDICAL MEDICAL CONC AT EQUIPME EQUIPME PRSC FLW RATE PRTBLE E0431 JAIR ADAM GASEOUS 2 HOME HOME O2 SYS MEDICAL MEDICAL RENT; EQUIPME EQUIPME FLWMTR HUMIDFR&M ASK AMB A0427 [facility] SERVICE 2 AMBULANCE AMBULANCE ALS SERVICE SERVICE EMERGENCY TRANSPORT LEVEL 1 GROUND A0425 [facility] MILEAGE 2 AMBULANCE AMBULANCE PER SERVICE SERVICE STATUTE MILE PRTBLE E0431 JAIR ADAM GASEOUS 2 HOME HOME O2 SYS MEDICAL MEDICAL RENT; EQUIPME EQUIPME FLWMTR HUMIDFR&M ASK O2 CONC 1 E1390 JAIR LEDESMA PORT 2 HOME HOME 85%/>02 MEDICAL MEDICAL CONC AT EQUIPME EQUIPME PRSC FLW RATE NONEMERG A0120 [facility] TRNSPRT: 2 [facility] [place] ACTION ACTION [facility] AREA/OTH SYS NONEMERG A0120 [facility] TRNSPRT: 2 [facility] [place] ACTION ACTION [facility] AREA/OTH SYS O2 CONC 1 E1390 JAIR LEDESMA PORT 2 HOME HOME 85%/>02 MEDICAL MEDICAL CONC AT EQUIPME EQUIPME PRSC FLW RATE PRTBLE E0431 JAIR ADAM GASEOUS 2 HOME HOME O2 SYS MEDICAL MEDICAL RENT; EQUIPME EQUIPME FLWMTR HUMIDFR&M ASK NONEMERG A0120 LKLP LKLP TRNSPRT: 2 [facility] COMMUNITY [place] ACTION ACTION [place] AREA/OTH SYS PRTBLE E0431 JAIR ADAM GASEOUS 2 HOME HOME O2 SYS MEDICAL MEDICAL RENT; EQUIPME EQUIPME FLWMTR HUMIDFR&M ASK O2 CONC 1 E1390 JAIR LEDESMA PORT 2 HOME HOME 85%/>02 MEDICAL MEDICAL CONC AT EQUIPME EQUIPME PRSC FLW RATE O2 CONC 1 E1390 JAIR LEDESMA PORT 2 HOME HOME 85%/>02 MEDICAL MEDICAL CONC AT EQUIPME EQUIPME PRSC FLW RATE PRTBLE E0431 JAIR ADAM GASEOUS 2 HOME HOME O2 SYS MEDICAL MEDICAL RENT; EQUIPME EQUIPME FLWMTR HUMIDFR&M ASK SERVICE G0152 NURSES NURSES OCCUP 2 REGISTRY REGISTRY THERAP & HOME HE & HOME HE HOME HLTH/HOSP ICE EA 15 MIN SERVICE G0152 NURSES NURSES OCCUP 2 REGISTRY REGISTRY THERAP & HOME HE & HOME HE HOME HLTH/HOSP ICE EA 15 MIN SERVICE G0151 NURSES NURSES PHYS 2 REGISTRY REGISTRY THERAP & HOME HE & HOME HE HOME HLTH/HOSP ICE EA 15 MIN PRTBLE E0431 JAIR ADAM GASEOUS 2 HOME HOME O2 SYS MEDICAL MEDICAL RENT; EQUIPME EQUIPME FLWMTR HUMIDFR&M ASK O2 CONC 1 E1390 JAIR LEDESMA PORT 2 HOME HOME 85%/>02 MEDICAL MEDICAL CONC AT EQUIPME EQUIPME PRSC [facility]W [facility] 11665 MCKEMIE MCKEMIE DISCHARGE 2 JR CYDNEY JR CYDNEY DAY MANAGEMEN T 30 MIN/< SBSQ 31826 [facility] 2 GREGORIO GREGORIO CARE/DAY 25 MINUTES SBSQ 12396 [facility] 2 GREGORIO GREGORIO CARE/DAY 25 MINUTES ECG 38447 [facility] ROUTINE 2 GREGORIO GREGORIO ECG W/LEAST 12 LDS I&R ONLY SBSQ 68510 [facility] 2 GREGORIO GREGORIO CARE/DAY 25 MINUTES SBSQ 33473 [facility] 2 GREGORIO GREGORIO CARE/DAY 25 MINUTES RADIOLOGI 51100 [place] [facility] C EXAM 2 MEDICAL NAM CHEST 2 IMAGING VIEWS ASS FRONTAL&L ATERAL CT THORAX 21246 [place] [facility] 2 MEDICAL NAM W/CONTRAS IMAGING T ASS MATERIAL ECG 39202 [facility] ROUTINE 2 GREGORIO GREGORIO ECG W/LEAST 12 LDS I&R ONLY AMB A0427 [facility] SERVICE 2 AMBULANCE AMBULANCE ALS SERVICE SERVICE EMERGENCY TRANSPORT LEVEL 1 INITIAL 08659 [facility] 2 GREGORIO GREGORIO CARE/DAY 50 MINUTES GROUND A0425 [facility] MILEAGE 2 AMBULANCE AMBULANCE PER SERVICE SERVICE STATUTE MILE RADIOLOGI 95811 [place] [facility] C 2 MEDICAL NAM EXAMINATI IMAGING ON CHEST ASS SINGLE VIEW FRONTAL RADIOLOGI 04813 [place] [facility] C 2 MEDICAL NAM EXAMINATI IMAGING ON CHEST ASS SINGLE VIEW FRONTAL GROUND A0425 [facility] MILEAGE 2 AMBULANCE AMBULANCE PER SERVICE SERVICE STATUTE MILE AMB A0427 [facility] 2 AMBULANCE AMBULANCE ALS SERVICE SERVICE EMERGENCY TRANSPORT LEVEL 1 NONEMERG A0120 [facility] TRNSPRT: 2 COMM[facility]ITY COMM[facility] [place] ACTION ACTION [facility] AREA/OT SYS COMPUTER- 93442 LAMINE RAMAN AIDED 2 [facility] DETECTION INC INC SCREENING MAMMOGRAP HY SCREENING G0202 LAMINE RAMAN 2 [facility] MAMMOGRAP INC INC HY PREETHI INCL CAD WHEN PERFORMD CYTP 43270 BIO BIO CERVICAL/ 2 REFERNCE 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 REQ IES IES INTERP PHYSICIAN CYTP C/V 38276 BIO BIO AUTO THIN 2 REFERNCE REFERNCE LYR LABORATOR LABORATOR PREPJ SCR IES IES MNL RESCR PHYS NONEMERGE A0100 [facility] 1 COMMUNITY TRANSPORT ACTION ATION; TAXI RADEX HIP 55258 [facility] RAMIREZZAID 1 MEDICAL NAM UNILATERA IMAGING L ASS COMPLETE MINIMUM 2 VIEWS NONEMERGE A0100 [facility] 1 COMMUNITY TRANSPORT ACTION ATION; TAXI NONEMERGE A0100 [facility] 1 COMMUNITY TRANSPORT ACTION ATION; TAXI ECG 09569 LAMINEFLORENCIO RAMAN ROUTINE 0 [facility] ECG INC INC W/LEAST 12 LDS TRCG ONLY W/O I&R AMB A0427 [facility] SERVICE 0 AMBULANCE AMBULANCE ALS SERVICE SERVICE EMERGENCY TRANSPORT LEVEL 1 AMB A0422 [facility] OXYGEN&O2 0 AMBULANCE AMBULANCE SUPPLIES SERVICE [place] [address] [facility] MAR, ANGIOGRAP 0 MEDICAL JORDON HY CHEST IMAGING W/CONTRAS ASSOCIATE T/NONCONT S RAST GROUND A0425 [facility] MILEAGE 0 AMBULANCE AMBULANCE PER SERVICE SERVICE STATUTE MILE COMPREHEN 56181 LAMINE RAMAN SIVE 0 [facility] METABOLIC INC INC PANEL FIBRIN 70168 LAMINE LAMINE DGRADJ 0 [facility] PRODUCTS INC INC D-DIMER QUAL/SEMI JALEESA RADIOLOGI 93494 [facility], C EXAM 0 MEDICAL JORDON CHEST 2 IMAGING VIEWS ASSOCIATE FRONTAL&L S ATERAL BLOOD 99957 LAMINE RAMAN COUNT 0 [facility] COMPLETE INC INC AUTO&AUTO DIFRNTL WBC ECG 38872 STEVE AHUMADA ROUTINE 0 EMERGENCY GRE ECG SERVICES W/LEAST 12 LDS I&R ONLY IADNA 66979 [facility] [place] 0 [employer] VIRUS HUMAN AMPLIFIED PROBE TQ CYTP C/V 93367 [facility] AUTO THIN 0 [place] INC [place] INC LYR PREPJ SCR MNL RESCR PHYS CYTP 21148 [facility] CERVICAL/ 0 VAGINAL INDIANAPO INDIANAPO REQ LIS PC LIS PC INTERP PHYSICIAN IADNA 57830 [facility] [place] 0 [facility] TRACHOMAT IS AMPLIFIED PROBE TQ BLOOD 93480 [facility] HARPEL COUNT 0 PHYSICIAN MALIHA HEMOGLOBI GROUP N PCC COLLECTIO 48786 [facility] HARPEL N 0 PHYSICIAN MALIHA CAPILLARY GROUP BLOOD PCC SPECIMEN IADNA 85505 [facility] [place] 0 [facility] GONORRHOE AE AMPLIFIED PROBE TQ COMPREHEN 39465 LAMINE RAMAN SIVE 9 [facility] METABOLIC INC INC PANEL BLOOD 18713 LAMINE RAMAN COUNT 9 [facility] COMPLETE INC INC AUTO&AUTO DIFRNTL WBC LAPAROSCO 39923 [facility] [place] PY SURG 9 , FRANCHESCA , FRANCHESCA CHOLECYST ECTOMY LEVEL III 15354 PATHOLOGY PATHOLOGY SURG 9 & & PATHOLOGY CYTOLOGY CYTOLOGY LAB LAB GROSS&[place] [address] LAMINE RAMAN INFUSION 9 [facility] THERAPY/P INC INC ROPHYLAXI S /DX 1ST TO 1 HR THERAPEUT 64711 LAMINE RAMAN IC 9 [facility] INJECTION INC INC IV PUSH EACH NEW DRUG PRESSURIZ 22027 LAMINE RAMAN ED/NONPRE 9 [facility] SSURIZED [place] [address] LAMINE RAMAN INFUSION 9 [facility] THERAPY INC INC PROPHYLAX IS/DX EA HOUR ANES 52688 [facility] NATHALY, INTRAPERI 9 ANESTH JACK A TONEAL OF THE UPPER [place] ABDOMEN W/LAPS NOS LAPAROSCO 5123 LAMINE RAMAN PIC 9 [facility] CHOLECYST INC INC ECTOMY ECG 87592 LAMINE RAMAN ROUTINE 9 [facility] ECG INC INC W/LEAST 12 LDS TRCG ONLY W/O I&R ECG 27697 LAMINE GUPTAMIE ROUTINE 9 [facility] W/LEAST PROF SERV 12 LDS I&R ONLY BLOOD 79684 LAMINE RAMAN COUNT 9 [facility] COMPLETE INC INC AUTO&AUTO DIFRNTL WBC BX/EXC 39658 [facility] LYMPH 9 , FRANCHESCA , FRANCHESCA NODE OPEN DEEP AXILLARY NODE INJ 38155 LAMINE RAMAN RADIOACTI 9 [facility] VE TRACER INC INC FOR ID OF SENTINEL NODE PATH 75960 ZARINA GIL 9 DIONNE & CARON Marquez SURG DUBILIER CYTOLOGIC EXAM INITIAL SITE ANES 37877 [facility] 9 ANESTH FERN F EXTREMITI OF THE ES ANT BLUEGRASS TRUNK & PERINEUM NOS MASTECTOM 28927 GEENA SEAY Y PARTIAL 9 , FRANCHESCA , FRANCHESCA US BREAST 71508 JACKELYN MAR, REAL 9 MEDICAL [facility] TIME IMAGING W/IMAGE ASSOCIATE DOCUMENTA S TION PREOP 29508 JACKELYN MAR PLACEMENT 9 MEDICAL [place] IMAGING LOCALIZAT ASSOCIATE ION WIRE S BREAST RADIOLOGI 54459 JACKELYN MAR RADHIKA 9 MEDICAL [place]ORD[place] EXAMINATI IMAGING [place] [address] LAMINE RAMAN INFUSION 9 [facility] THERAPY INC [place]HY[place] [address] JACKELYN MAR, GUIDANCE 9 MEDICAL [place] NEEDLE IMAGING PLACEMENT ASSOCIATE IMG S&I S PRESSURIZ 46348 LAMINE RAMAN ED/NONPRE 9 [facility] SSURIZED INC INC INHALATIO N TREATMENT THERAPEUT 51361 LAMINE RAMAN IC 9 [facility] INJECTION [place] [address] LAMINE RAMAN INFUSION 9 [facility] THERAPY/P INC INC ROPHYLAXI S /DX 1ST TO 1 HR LEVEL V 89711 PATHOLOGY PATHOLOGY SURG 9 & & PATHOLOGY CYTOLOGY CYTOLOGY LAB LAB GROSS&TROY ROSCOPIC EXAM SUBTOTAL 8567 LAMINE RAMAN MASTECTOM 9 [facility] Y INC INC EXCISION 4023 LAMINE RAMAN OF 9 [facility] AXILLARY INC INC LYMPH NODE ECG 46418 LAMINE RMAAN ROUTINE 9 [facility] ECG INC INC W/LEAST 12 LDS TRCG ONLY W/O I&R BASIC 79379 LAMINE RAMAN METABOLIC 9 [facility] PANEL INC INC CALCIUM TOTAL BLOOD 49071 LAMINE RAMAN COUNT 9 [facility] COMPLETE INC INC AUTO&AUTO DIFRNTL WBC ECG 14259 LAMINE OLIVA, ROUTINE 9 [facility] W/LEAST PROF SERV 12 LDS I&R ONLY OPHTH 22356 MAUREEN CARLOS, MEDICAL 9 VISION FEMI A XM&EVAL COMPRHNSV ESTAB PT 1/> [facility] 34414 PATHOLOGY PATHOLOGY DYANA 9 & & TUMOR CYTOLOGY CYTOLOGY IMHCHEM LAB LAB EA ANTIBODY MANUAL MAMMOGRAP 88644 LAMINE RAMAN HY 9 [facility] [place] [address] PATHOLOGY PATHOLOGY SURG 9 & & PATHOLOGY CYTOLOGY CYTOLOGY LAB LAB GROSS&TROY ROSCOPIC EXAM US BREAST 72516 [facility] MAR, REAL 9 MEDICAL JORDON TIME IMAGING W/IMAGE ASSOCIATE DOCUMENTA S TION BREAST 69995 [facility] RAMIREZZAID, BIOPSY 9 MEDICAL JORDON VACUUM IMAGING ASSISTED/ [place] [address] LAMINE RAMAN GUIDANCE 9 [facility] NEEDLE INC INC PLACEMENT IMG S&I CLOSED 8511 LAMINE RAMAN BIOPSY OF 9 [place] [address] [facility] ZAID, ABDOMINAL 9 MEDICAL [place] REAL IMAGING TIME ASSOCIATE W/IMAGE S LIMITED US BREAST 14188 LAMINE RAMAN REAL 9 [facility] TIME INC INC W/[place] [address] LAMINE RAMAN LIPASE 9 [facility] INC INC AMB A0427 [facility] SERVICE 9 AMBULANCE AMBULANCE ALS SERVICE SERVICE EMERGENCY TRANSPORT LEVEL 1 COMPREHEN 61785 LAMINE RAMAN SIVE 9 [facility] METABOLIC INC INC PANEL GROUND A0425 [facility] AM[facility]ULANCE AMBULANCE [place] [address] LAMINE RAMAN AMYLASE 9 [facility] INC INC BLOOD 96107 LAMINE RAMAN COUNT 9 [facility] COMPLETE INC INC AUTO&AUTO DIFRNTL WBC US BREAST 43214 LAMINE CÁRDENASON REAL 8 [facility] TIME INC INC W/IMAGE DOCUMENTA TION MAMMOGRAP 70934 LAMINE LAMINE HY 8 [facility] BILATERAL INC INC IADNA 13908 [facility] [place], [place] 8 [place] D GONORRHOE AE AMPLIFIED PROBE TQ BLOOD 45424 ALBERT PINEDOL, COUNT 8 SHAHIDAL MD ALBERT Lord HEMOGLOBI N CYTP 73245 [facility] [place], CERV/VAG 8 [place] D AUTO THIN LAYER PREP MNL SCREEN IADNA 72826 [facility] [place], [place]LAM[place]IA 8 [place] D TRACHOMAT IS AMPLIFIED PROBE TQ BLOOD 44417 ALBERT KRAMER, OCCULT 8 SHAHIDAL MD ALBERT Lord PEROXIDAS E ACTV QUAL FECES 1-3 SPEC CYTP 22652 [facility] [place], CERVICAL/ 8 [place] D VAGINAL REQ INTERP PHYSICIAN IADNA 42537 [facility] [place], [place] 8 [place] D VIRUS HUMAN AMPLIFIED PROBE TQ LIPID 76309 LAMINE RAMAN PANEL 8 [facility] INC INC HEPATIC 53811 LAMINE RAMAN FUNCTION 8 [facility] PANEL INC INC Encounters Encounter Start End Date Code Location Performer Type Date OFFICE 47244 HITESH PROCTOR OUTPATIEN 7 7 T [facility] 30 MINUTES [facility] LAMINE - 7 7 [facility] INPATIENT INC H[facility]PICE HOSPICE 6 6 OF [facility] 6 6 [facility] 6 6 [facility] 6 6 OF [facility] [place] [address] [facility] 6 6 OF THE PATIENT HELDER MOD-HI SEVERITY 45 MINUTES HOSPICE HOSPICE 6 6 [facility] 6 6 [facility] 6 6 [facility] 6 6 [facility] 5 5 [facility] 5 5 [facility] OFFICE 35816 SOILA HOL[facility] OUTPATIEN 5 5 R FAMILY AMI T VISIT PRACTICE 15 MINUTES HOSPITAL LAMINE - 5 5 [facility] OUTPATIEN INC T EMERGENCY 81081 LAMINE HADLEYI 5 5 [facility] T VISIT P MODERATE SEVERITY EMERGENCY 06561 LMAINE 5 5 [facility] T VISIT LOW/MODER SEVERITY [facility]ERGENCY 61899 [facility] V[facility] EMERGENCY HIGH PHYS SEVERITY& THREAT FUN OFFICE 24331 [facility] 4 4 [facility] T VISIT INTERNAL 15 MED MINUTES HOSPITAL LAMINE - 4 4 [facility] OUTPATIEN INC T HOSPITAL LAMINE - 4 4 [facility] OUTPATIEN INC T OFFICE 20965 [facility] OUTPATIEN 3 3 T NEW 45 MINUTES OFFICE 94153 HITESH PROCTOR OUTPATIEN 3 3 MIN MIN T VISIT 15 MINUTES OFFICE 81608 HITESH PROCTOR OUTPATIEN 3 3 MIN MIN T VISIT 15 MINUTES [facility], 2 2 REGISTRY OUTPATIEN & HOME HE T OFFICE 19451 [facility] OUTPATIEN 2 2 MALIHA MALIHA T VISIT 15 MINUTES HOME [facility], 2 2 REGISTRY OUTPATIEN & HOME HE T OFFICE 11366 HITESH PROCTOR OUTPATIEN 2 2 MIN MIN T VISIT 15 MINUTES HOSPITAL LAMINE - 2 2 [facility] INPATIENT INC EMERGENCY 11793 FRED IBARRA DEPT 2 2 CYDNEY CYDNEY VISIT HIGH SEVERITY& THREAT FUNJ OFFICE 57173 HITESH DUNHAMEN 2 2 MIN MIN T VISIT 15 MINUTES OFFICE 52179 [facility] OUTPATIEN 2 2 MALIHA MALIHA T VISIT 15 MINUTES HOSPITAL LAMINE - 2 2 [facility] OUTPATIEN INC T OFFICE 01071 [facility] OUTPATIEN 2 2 MALIHA MALIHA T VISIT 15 MINUTES PERIODIC 05361 [facility] PREVENTIV 2 2 MALIHA MALIHA E MED EST PATIENT 40-64YRS OFFICE 80787 HITESH OCONNOR 1 1 MIN MIN T VISIT 15 MINUTES HOSPITAL LAMINE - 1 1 [facility] OUTPATIEN INC T OFFICE 18314 [facility] PETTEY CONSULTAT 1 1 PHYSICIAN MUMTAZ Abdalla GROUP NEW/[facility] PATIENT 60 MIN OFFICE 70092 HITESH OCONNOR 1 1 MIN MIN T VISIT 15 MINUTES OFFICE 56197 HITESH OCONNOR 0 0 MIN MIN T VISIT 15 MINUTES EMERGENCY 49087 LAMINE 0 0 [facility] INC T VISIT MODERATE SEVERITY HOSPITAL LAMINE - 0 0 [facility] OUTPATIEN INC T EMERGENCY 63236 STEVE AHUMADA DEPT 0 0 EMERGENCY GRE VISIT SERVICES HIGH SEVERITY& THREAT FUN PERIODIC 35210 [facility] HARPEL PREVENTIV 0 0 PHYSICIAN MALIHA E MED EST GROUP PATIENT PCC 40-64YRS OFFICE 90886 HITESH PROCTOR OUTPATIEN 0 0 NISHI Tapia T VISIT 15 MINUTES OFFICE 90295 HITESH PROCTOR OUTPATIEN 9 9 NISHI Tapia T VISIT 15 MINUTES OFFICE 14022 ELVIN OSBORN 9 9 [facility] 15 PROF SERV MINUTES HOSPITAL LAMINE - 9 9 [facility] OUTPATIEN INC T OFFICE 24492 HITESH PROCTOR OUTPATIEN 9 9 NISHI Tapia T VISIT 15 MINUTES HOSPITAL LAMINE - 9 9 [facility] HOSPITAL LAMINE - [address] [facility] T OFFICE 52746 LAMINE KC, CONSULTAT 9 9 [facility] NEW/ESTAB PROF SERV PATIENT 80 MIN OFFICE 02221 [facility] CONSULTAT 9 9 , FRANCHESCA , FRANCHESCANahid MCKINNON NEW/ESTAB PATIENT 60 MIN HOSPITAL LAMINE - 9 9 [facility]PITAL LAMINE - [address] [facility] [address] [facility] T OFFICE 05444 SCH[facility] CONSULTAT 9 9 , FRANCHESCA , FRANCHESCA ION NEW/ESTAB PATIENT 60 MIN HOSPITAL LAMINE - 9 9 [facility] LAMINE - [address] [facility] [facility] T OFFICE 70380 HITESH PROCTOR OUTPATIEN 9 9 NISHI Tapia T VISIT 15 MINUTES EMERGENCY 86565 CHRIS MARC, 9 9 [facility] T VISIT ON MODERATE SEVERITY HOSPITAL LAMINE - 9 9 [facility] OUTPATIEN INC T OFFICE 78275 DAVID HERNANDEZ OUTPATIEN 8 8 DIONY Liz T NEW 30 MINUTES OFFICE 30433 HITESH PROCTOR OUTPATIEN 8 8 NISHI Small VISIT 15 MINUTES HOSPITAL LAMINE - 8 8 [facility] OUTPATIEN INC PERIODIC 48322 ALBERT KRAMER PREVENTIV 8 8 NIA PRICE E [facility] EST PATIENT 40-64YRS OFFICE 90354 HITESH PROCTOR OUTPATIDOMINGO 8 8 NISHI Small [facility] 30 MINUTES [facility] LAMINE - 8 8 [facility]
--- OUTSIDE RECORDS SUMMARY | 2017-01-17 01:15 | External Medical Summary Rpt ---
Author Author , Organization [employer] Address Unknown Phone Unavailable Care Team Providers Care Kiln Setter Name Role Phone [facility] Unavailable Unavailable [facility] ARNOLD, ARNOLD Unavailable Unavailable ARNOLD, ARNOLD [...] [facility] HERNANDEZ, HERNANDEZ Unavailable Unavailable [facility] Unavailable Unavailable SERVICE, [facility] Unavailable Unavailable SERVICE, [facility], [facility] Unavailable Unavailable [facility] Unavailable Unavailable [place], [facility] Unavailable Unavailable [facility], [facility] CARON WHITLEY, Unavailable Unavailable CARON DO CRUTCHER Unavailable Unavailable ZAID NAM, Unavailable Unavailable [facility] NAM JORDNO MAR, Unavailable Unavailable JORDON MAR [facility] [place] [facility] [place] [facility] Unavailable Unavailable [facility], [facility] Unavailable Unavailable [facility]ATION [facility], [facility] FRYMAN, FRYMAN Unavailable Unavailable FRYMAN EUG, FRYMAN Unavailable Unavailable EUG MONICO TROY, MONICO Unavailable Unavailable TROY BEA MARC S, Unavailable Unavailable BEA MARC S HARPEL MALIHA, HARPEL Unavailable Unavailable MALIHA HARPEL MALIHA, HARPEL Unavailable Unavailable MALIHA ALBERT KRAMER R, Unavailable Unavailable HARPEL ALBERT R [facility] Unavailable Unavailable INC, [facility] Unavailable Unavailable HOSPITAL P, [facility] P FEMI CARLOS A, Unavailable Unavailable FEMI CARLOS [facility] Unavailable Unavailable PCC, [facility], Unavailable Unavailable [facility] GEORGINA CANNON, Unavailable Unavailable GEORGINA CANNON [facility] Un[facility] Unavailable [facility] Unavailable Unavailable IMAGING ASS, [facility] Unavailable Unavailable HOLDINGS, [facility] Unavailable Unavailable HOLDINGS, [facility], Unavailable Unavailable [facility], Unavailable Unavailable [facility] DIONY HERNANDEZ, Unavailable Unavailable DIONY HERNANDEZ JR DWI, SWAPNA Unavailable Unavailable JR DWI [facility] Unavailable Unavailable INTERNAL MED, [facility] INTER[facility] MED [facility] Unavailable Unavailable ACTION, [facility] CARLEE RIVAS, CARLEE RIVAS Unavailable [...] PHARM #[id number] [facility] Unavailable Unavailable [id number] # [id number], [facility] [id number] # [id number] [facility] Unavailable Unavailable FR[facility] BELL Unavailable Unavailable FRANCHESCA LAST, Unavailable Unavailable SHELBYSTAFIA FRANCHESCA SHALASWil AMI, SHALASH Unavailable Unavailable AMI [facility] Unavailable Unavailable E[facility], [facility] Unavailable Unavailable [facility], [facility] SOTINGEANU CURTIS, Unavailable Unavailable SOTINGEANU CURTIS [facility] Unavailable Unavailable [facility], [facility] AHUMADA GRE, AHUMADA Unavailable Unavailable JACK WOOD, Unavailable Unavailable JACK [facility] Unavailable Unavailable [facility] Unavailable Unavailable [facility] Unavailable Unavailable [facility] Unavailable Unavailable PR[facility], [facility] TAXI, Unavailable Unavailable [facility], Unavailable Unavailable [facility] [...] 11-28-2016 ARNOLD BRONCHITIS UNSPECIFIED I10 ESSENTIAL 10-27-2016 [facility]YPERT[facility] IM[facility] ASS N J441 CHRONIC 10-27-2016 [facility] OBSTRUCTIVE PHYSICIANS PULMONARY GROUP DZ W/EXACERBAT ION J984 OTHER 10-27-2016 [place] DISORDERS MEDICAL OF LUNG IMAGING ASS Z720 TOBACCO USE 10-27-2016 [facility] PHYSICIANS GROUP J479 BRONCHIECTA 10-25-2016 [facility] MEDICAL UNCOMPLICAT IMAGING ASS ED R0602 SHORTNESS 10-25-2016 [place] OF BREATH MEDICAL IMAGING ASS R590 LOCALIZED 10-25-2016 [facility] ENLARGED MEDICAL LYMPH NODES IMAGING ASS I272 OTHER 10-24-2016 [facility] P HYPERTENSIO N I517 CARDIOMEGAL 10-24-2016 [facility] INC J8410 PULMONARY 10-24-2016 [facility] P Z9981 DEPENDENCE 10-24-2016 [facility] SUPPLEMENTA INC L OXYGEN R300 DYSURIA 03-30-2016 [facility] [place] I2781 COR 12-28-2015 [facility] [place] [facility] CHRONIC [facility] I509 HEART 12-28-2015 [facility]OSPICE OF FAILURE THE UNSPECIFIED [facility] R0902 HYPOXEMIA 12-28-2015 [facility]OSP[facility] OF THE [facility] H64474 OTHER LONG 07-07-2015 [facility] TERM PHYSICIANS CURRENT GROUP DRUG THERAPY Z853 PERSONAL 07-07-2015 [facility] HISTORY PHYSICIANS PRIMARY GROUP MALIG NEOPLASM BREAST R000 TACHYCARDIA 07-06-2015 [facility], UNSPECIFIED PLLC R05 COUGH 07-06-2015 [facility] SERVICE R918 OTHER 07-06-2015 [place] NONSPECIFIC MEDICAL ABNORMAL IMAGING ASS FINDING OF LUNG FIELD 486 PNEUMONIA, 05-18-2015 [facility] UNSPECIFIED MEDICAL EQUIPME 496 CHRONIC 05-18-2015 [facility] OBSTRUCTION MEDICAL NEC EQUIPME 6237 POLYP OF 05-05-2015 [facility] 6249 UNS D/O 05-05-2015 [facility] MENSTRUATIO FAMILY N&OTH ABN PRACTICE BLEED FE GNT TRACT 5990 URINARY 01-05-2015 LAB [facility] TRACT SARAH INFECTION HOLDINGS SITE NOT SPECIFIED 58503 11-25-2014 [facility] ION SER 4660 ACUTE 10-12-2014 [facility] P 515 POSTINFLAMM 10-12-2014 [facility] PULMONARY [facility] P FIBROSIS 45111 OTHER 10-12-2014 [place] DISEASES OF MEDICAL LUNG NOT IMAGING ASS ELSEWHERE CLASSIFIED 67646 SHORTNESS 10-12-2014 [facility] 7862 COUGH 10-12-2014 [facility] 21177 ASTHMA, 05-26-2014 [facility] UNSPECIFIED PHARMACY , [facility] UNSPECIFIED STATUS 1330 SCABIES 05-24-2014 [facility] INTERNAL MED 1749 MALIGNANT 05-24-2014 [place] NEOPLASM OF MEDICAL BREAST IMAGING ASS UNSPECIFIED SITE 17736 OTHER 05-24-2014 [facility] SPECIFIED N EMERGENCY CARDIAC PHYS DYSRHYTHMIA S 85970 OBSTRUCTIVE 05-24-2014 [facility] CHRONIC N EMERGENCY BRONCHITIS PHYS WITH EXACERBATIO N 23090 OTHER 05-24-2014 [facility] DYSPNEA AND MEDICAL IMAGING ASS RESPIRATORY ABNORMALITI ES V103 PERSONAL 05-24-2014 [facility] P NEOPLASM OF BREAST V148 PERSONAL 05-24-2014 [facility] HISTORY [facility] P SPEC MEDICINAL AGTS 2724 OTHER AND 03-12-2014 [facility] UNSPECIFIED [facility] INC HYPERLIPIDE SHOLA 2859 UNSPECIFIED 03-12-2014 [facility] ANEMIA [facility] INC V700 ROUTINE 03-12-2014 [facility] [address] [facility] MEDICAL INC EXAM@HEALTH CARE FACL 4928 OTHER 05-21-2013 [facility] EMPHYSEMA 23773 REFLUX 05-21-2013 [facility] ESOPHAGITIS 7242 LUMBAGO 05-21-2013 [facility] 7336 TIETZES 05-03-2013 ARN[facility] MIN DISEASE 4619 ACUTE 12-03-2012 ARNOLD MIN SINUSITIS, UNSPECIFIED 7810 ABNORMAL 07-05-2012 [facility] INVOLUNTARY AMBULANCE MOVEMENTS SERVICE 77524 OSTEOARTHRO 03-08-2012 NURSES S INVLV MX REGISTRY & SITES BUT HOME HE NOT SPEC GEN V5789 OTHER 03-08-2012 NURSES SPECIFIED REGISTRY & REHABILITAT HOME HE ION PROCEDURE OTHER 6272 SYMPTOMATIC 03-01-2012 HARPEL MALIHA MENOPAUSAL/ FEMALE CLIMACTERIC STATES V1322 PERSONAL 03-01-2012 [facility] MALIHA HISTORY OF CERVICAL DYSPLASIA 03729 UNSPECIFIED 02-20-2012 HITESH COPELAND CONSTIPATIO N 5199 UNSPECIFIED 02-09-2012 [facility] DISEASE OF MEDICAL IMAGING ASS RESPIRATORY SYSTEM 7856 ENLARGEMENT 02-09-2012 [place] OF LYMPH MEDICAL NODES IMAGING ASS 7850 UNSPECIFIED 02-08-2012 [facility] TACHYCARDIA SERVICE 7851 PALPITATION 02-08-2012 [facility] AMBULANCE SERVICE 05781 HYPOXEMIA 02-08-2012 FRED LAMAS 84032 LUMP OR 11-21-2011 HARPEL MALIHA MASS IN BREAST 47732 DYSPLASIA 11-14-2011 HARPEL MALIHA OF CERVIX UNSPECIFIED 06059 OTHER 11-14-2011 [place] ABNORMAL MEDICAL FINDING IMAGING ASS RADIOLOGICA L EXAM BREAST 05479 PAP SMER 11-14-2011 [facility] MALIHA CERV W/ATYPICAL SQUAMOUS CELLS UNDET V1041 PERSONAL 11-14-2011 HAR[facility] MALIHA HISTORY MALIGNANT NEOPLASM CERVIX UTERI V7612 OTHER 11-14-2011 [facility] SCREENING MEDICAL MAMMOGRAM IMAGING ASS V7231 ROUTINE 09-27-2011 [facility] MALIHA GYNECOLOGIC AL EXAMINATION V7641 SCREENING 09-27-2011 [facility] MALIHA FOR MALIGNANT NEOPLASM OF THE RECTUM 08532 PAIN IN 03-11-2011 [facility] JOINT [facility]ICAL PELVIC IMAGING ASS REGION AND THIGH 7243 SCIATICA 03-11-2011 [facility]YS[facility]ANS GROUP 5110 PLEURISY 07-01-2010 HITESH MIN WITHOUT MENTION EFFUS/[place] [address] PAIN IN 02-23-2010 [facility] PROF SERV 7231 CERVICALGIA 02-23-2010 [facility] PROF SERV 7245 UNSPECIFIED 02-23-2010 [facility] 60884 CHEST PAIN 02-23-2010 [facility] UNSPECIFIED [facility]ICAL IMAGING [facility]OC[facility] 40192 PAINFUL 02-23-2010 [facility] PROF SERV 91178 OTHER CHEST 02-23-2010 [facility] AMBULANCE SERVICE 95110 PAP SMER 12-15-2009 [facility] W/HI [facility] GRADE SQUAMOUS INTRAEPITH LES V780 SCREENING 12-15-2009 [facility] FOR IRON PHYSICIAN DEFICIENCY GROUP PCC ANEMIA 62954 OTHER 10-16-2009 HITESH, MALAISE AND NISHI Tapia FATIGUE 33210 ESOPHAGEAL 02-27-2009 HITESH, REFLUX NISHI W 5759 UNSPECIFIED 02-27-2009 ARNOLD, DISORDER NISHI W OF GALLBLADDER 2720 PURE 02-10-2009 [facility], HYPERCHOLES FRANCHESCA TEROLEMIA 47773 CALCU 02-10-2009 [facility], GALLBLADD FRANCHESCA W/OTH CHOLECYST W/O MENTION OBST 30152 CALCU 02-10-2009 [facility] GALLBLADD ANESTH OF W/O MENTION THE [facility] CHOLECYST/O BST 41151 ABDOMINAL 02-10-2009 [facility], PAIN RIGHT FRANCHESCA UPPER QUADRANT 54740 UNSPECIFIED 12-05-2008 [place] ABNORMAL [facility]ICAL MAMMOGRAM [facility] 51227 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-2008 [facility] DEGENERATIO N OF PERIPHERAL RETINA 34359 OTHER SIGN 11-20-2008 [place] AND SYMPTOM MEDICAL IN BREAST IMAG[facility] 31618 ABDOMINAL 10-28-2008 [place] PAIN, MEDICAL UNSPECIFIED IMAGING SITE ASSOCIATES 50594 ABDOMINAL 10-28-2008 [facility] PAIN, MEM [facility]OS[facility] GENERALIZED INC 50850 ACUTE 10-15-2008 PEREZ GASTRITIS [employer] MENTION OF HEMORRHAGE 78571 WHEEZING 10-15-2008 [facility]ULANCE SERVICE 462 ACUTE 07-07-2008 HERNANDEZ, PHARYNGITIS DIONY Liz 25138 DYSPHAGIA 07-07-2008 HERNANDEZ, UNSPECIFIED DIONY Liz 7842 SWELLING 06-30-2008 ARNDONNIE, MASS OR NISHI W LUMP IN HEAD AND NECK 48261 ABNORM 06-27-2008 [place] HRT MEDICAL RATE/RHYTHM IMAGING 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 38710 MAMMOGRAPHI 06-27-2008 [place] C MEDICAL MICROCALCIF IMAGING ICATION ASSOCIATES V7388 SPECIAL SCR 2008 [employer] [place] ([facility] INC EXAMINATION OTH SPEC CHLAMYDIAL DZ V745 [...] 11 D RI TA 1 PH CH AZ AR AR N- MA D CA CY [...] 1 90 30 RI 90 AR Ac IL 14 -3 -3 .0 TE 11 NO [...] 34 8- 8- 00 39 LD ve IL 59 20 20 AI ED 31 10 [...] US 03 93 8 # 03 93 IL 37 03 03 11 56 28 RI [...] 00 20 10 RI 80 AR Ac IL 17 -1 -2 .0 TE 43 NO [...] 20 DE ZA 60 09 09 RI IL 1 PH CH IN AR AR E [...] US OF CY NT HI AN A IL 00 10 05 03 30 30 EA [...] 00 60 30 EA 12 AR Ac IL 18 -3 -[address] 11 NO [...] US OF CY NT HI AN A IL 00 10 03 02 30 30 EA [...] 20 DE ZA 60 09 09 RI IL 1 PH CH IN AR AR E [...] 54 20 20 DE 41 09 09 AZ 0 PH CH AR AE MA L [...] W OF CY NT HI AN A IL 00 10 01 01 30 30 EA [...] ET OF CY NT HI AN A IL 00 10 11 00 30 30 EA [...] CY OF CY NT HI AN A IL 00 09 09 00 30 30 EA [...] CY UL NT E HI AN A IL 00 07 03 01 10 10 EA [...] HOME 85%/>02 MEDICAL MEDICAL CONC AT EQUIPME EQUIPWA PRS FLW RATE PRTBLE E0431 JAIR DE LOS SANTOSRELL GASEOUS 7 HOME HOME O2 SYS MEDICAL MEDICAL RENT; EQUIPME EQUIPME FLWMTR HUMIDFR&M ASK PRTBLE E0431 JAIR DE [place] SANTOSRELL GASEOUS 7 HOME HOME O2 SYS MEDICAL MEDICAL RENT; EQUIPME EQUIPME FLWMTR HUMIDFR&M ASK O2 CONC 1 E1390 JAIR DE LOS SANTOSSUSANA LEDESMA PORT 7 HOME HOME 85%/>02 MEDICAL MEDICAL CONC [facility] FLW RATE RADIOLOGI 56999 [place] HERNANDEZ C EXAM 7 MEDICAL CHEST 2 IMAGING VIEWS ASS FRONTAL&L [facility] 96596 [facility] FRYMAN DISCHARGE 7 PHYSICIAN DAY S GROUP MANAGEMEN T 30 MIN/< FINAL G9638 [place] HERNANDEZ REPORTS 7 MEDICAL W/O DOC IMAGING 1/MORE ASS DOSE REDUCTION TECH FINAL RPT G9557 [facility] CT/MRI 7 MEDICAL CHEST/NCK IMAGING /U/S NO ASS THR NOD<1.[address] THORAX 98492 [place] HERNANDEZ W/O 7 MEDICAL CONTRAST IMAGING MATERIAL ASS ECG 23686 LAMINE OLIVA ROUTINE 7 [facility] W/LEAST P 12 LDS I&R ONLY RADIOLOGI 80102 [place] ZAID C 7 MEDICAL EXAMINATI IMAGING ON CHEST ASS SINGLE VIEW FRONTAL AMB A0427 [facility] SERVICE 7 AMBULANCE AMBULANCE ALS SERVICE SERVICE EMERGENCY TRANSPORT LEVEL 1 GROUND A0425 [facility] MILEAGE 7 AMBULANCE AMBULANCE PER SERVICE SERVICE STATUTE MILE O2 CONC 1 E1390 JAIR DE LOS SANTOSSUSANA [place] PORT 7 HOME HOME 85%/>02 MEDICAL MEDICAL CONC AT E[facility] FLW RATE PRTBLE E0431 JAIR ADAM GASEOUS [...] HOSPICE HOSPICE OME 6 [facility] PROV PT HOME/RESI DENCE VOLUME 95831 COMBINED COMBINED MEASUREME 6 PHYSICIAN PHYSICIAN NT TIMED S LA S LA COLLECTIO N EACH URNLS DIP 13233 COMBINED COMBINED 6 PHYSICIAN PHYSICIAN STICK/TAB S LA S LA LET REAGENT AUTO MICROSCOP Y HOSPICE/H Q5001 HOSPICE HOSPICE OME 6 [facility] PT HOME/RESI DENCE HOSPICE/H Q5001 HOSPICE HOSPICE OME 6 [facility] PT HOME/RESI DENCE HOSPICE/H Q5001 HOSPICE HOSPICE OME 6 OF [facility] PT HOME/RESI DENCE HOSPICE/H Q5001 HOSPICE HOSPICE OME 6 OF [facility] PT HOME/RESI DENCE HOSPICE/H Q5001 HOSPICE HOSPICE OME 6 [facility] PT HOME/RESI DENCE HOSPICE/ Q5001 HOSPICE HOSPICE OME 6 [facility] PT HOME/RESI DENCE HOSPICE/ Q5001 HOSPICE HOSPICE OME 6 [facility] PT HOME/RESI DENCE HOSPICE/ Q5001 HOSPICE HOSPICE OME 5 [facility] PT HOME/RESI [facility] [address] MANAGEMEN T 30 MIN/< SBSQ [address] 15 MINUTES SBSQ 14697 [facility] 5 PHYSICIAN [facility] CARE/DAY S GROUP [address] THORAX 42238 [place] YESSICA 5 MEDICAL CURTIS W/CONTRAS IMAGING T ASS MATERIAL RADIOLOGI 97695 [place] ZAID 5 MEDICAL NAM EXAMINATI IMAGING ON CHEST ASS SINGLE VIEW FRONTAL ECG 52400 LAMINE BARCENAS JR ROUTINE [address] [place] [address] W/LEAST P 12 LDS I&R ONLY AMB A0427 [facility] SERVICE 5 AMBULANCE AMBULANCE ALS SERVICE SERVICE EMERGENCY TRANSPORT LEVEL [address] 50 MINUTES CRITICAL 17472 [facility] 5 PHYSICIAN U CURTIS ILL/INJUR S, PLLC ED PATIENT INIT 30-74 MIN GROUND A0425 [facility] AMBULANCE PER SERVICE SERVICE [...] AT EQUIPME EQUIPME PRSC FLW RATE CULTURE 58446 [facility] BACTERIAL 5 [facility] HOLDINGS QUANTTATI VE COLONY COUNT URINE O2 CONC 1 E1390 JAIR OLMEDO 5 HOME HOME 85%/>02 MEDICAL MEDICAL CONC AT EQUIPME EQUIPME PRSC FLW RATE PRTBLE E0431 JAIR ADAM GASEOUS 5 HOME HOME O2 SYS MEDICAL MEDICAL RENT; EQUIPME EQUIPME FLWMTR HUMIDFR&M ASK NONEMERGE A0100 [facility] 5 R TAXI TRANSPORT TRANSPORT ATION; ATION [...] RENT; EQUIPME EQUIPME FLWMTR HUMIDFR&M ASK RADIOLOGI 53816 LAMINE LAMINE C EXAM 5 MEM [facility]OS[facility] [...] RENT; EQUIPME EQUIPME FLWMTR HUMIDFR&M ASK BLOOD 63383 LAMINE RAMAN COUNT 4 [facility] COMPLETE INC INC AUTO&AUTO DIFRNTL WBC BASIC 53308 LAMINE RAMAN METABOLIC 4 [facility]OS[facility] PANEL INC INC CALCIUM TOTAL ADMN SET A7005 YOUR YOUR W/SM VOL 4 PHARMACY PHARMACY NONFILTR [facility] NEBULIZR NON-DISPB L HOSPITAL G0378 LAMINE RAMAN OBSERVATI [address] [facility] ON INC INC SERVICE PER HOUR NONINVASI 68887 LAMINE RAMAN VE [address] [facility] EAR/PULSE INC INC OXIMETRY SINGLE DETER PRESSURIZ 72494 LAMINE RAMAN ED/NONPRE 4 [facility] SSURIZED INC INC INHALATIO N TREATMENT OBSERVATI 33356 [place] BESJESS ON CARE 4 DORADO GREGORIO DISCHARGE INTERNAL MED MANAGEMEN T NEBULIZER E0570 JAIR ADAM WITH 4 HOME HOME COMPRESSO MEDICAL MEDICAL R EQUIPME EQUIPME INJECTION J0456 LAMINE RAMAN 4 [facility] AZITHROMY INC INC MARISELA 500 MG INJECTION J0456 LAMINE RAMAN 4 [facility] AZITHROMY INC INC MARISELA 500 MG NONINVASI 61317 LAMINE RAMAN VE [address] [facility] EAR/PULSE INC INC OXIMETRY SINGLE DETER PRESSURIZ 72912 LAMINE RAMAN ED/NONPRE 4 [facility] SSURIZED INC INC INHALATIO N TREATMENT HOSPITAL G0378 LAMINE RAMAN OBSERVATI 4 [facility] ON INC INC SERVICE PER HOUR BASIC 48476 LAMINE RAMAN METABOLIC 4 [facility] PANEL INC INC CALCIUM TOTAL CUL BACT 93471 LAMINE RAMAN XCPT 4 [facility] URINE INC INC BLOOD/STO OL AEROBIC ISOL SMR PRIM 37599 LAMINE RAMAN SRC 4 [facility] GRAM/GIEM INC INC SA STAIN BCT FUNGI/COLLEEN L CULTURE 55718 LAMINE RAMAN BACTERIAL 4 [facility] BLOOD INC INC AEROBIC W/ID ISOLATES BLOOD 48240 LAMINE RAMAN COUNT 4 [facility] COMPLETE INC INC AUTO&AUTO DIFRNTL WBC ECG 24355 [facility] ROUTINE 4 ANTONIETA ECG EMERGENCY W/LEAST PHYS 12 LDS I&R ONLY BLOOD 12014 LAMINE RAMAN GASES ANY 4 [facility] INC INC COMBINATI ON PH PCO2 PO2 CO2 HCO3 NATRIURET 95212 LAMINE RAMAN IC 4 MEM [facility]OS[facility] PEPTIDE INC INC RADIOLOGI 82523 [facility] C 4 MEDICAL NAM EXAMINATI IMAGING ON CHEST ASS SINGLE VIEW FRONTAL CT THORAX 58880 JACKELYN MAR 4 MEDICAL NAM W/[place] [address] LAMINE CÁRDENASON TROPONIN 4 MEM H[facility] QUANTITAT INC INC [facility] G0378 LAMINE CÁRDENASON OBSERVATI 4 [facility] [place] [address] LAMINE CÁRDENASON ANGIOGRAP 4 [facility]OS[facility] HY CHEST INC INC W/CONTRAS T/NONCONT RAST TOBACCO 86591 LAMINEFLORENCIO RAMAN USE 4 [facility] CESSATION INC INC INTERMEDI ATE 3-10 MINUTES LOCM Q9967 LAMINE RAMAN 300-399 4 [facility] MG/ML INC INC IODINE CONCENTRA TION PER ML COMPREHEN 79857 LAMINE RAMAN SIVE 4 [facility]OS[facility] METABOLIC INC INC PANEL PRESSURIZ 98400 LAMINE RAMAN ED/NONPRE 4 [facility]OS[facility] SSURIZED INC INC INHALATIO N TREATMENT INITIAL 60456 [place] HAZEL QUIROZ 4 [facility] ON INTERNAL CARE/DAY MED 30 MINUTES ECG 83992 LAMINE RAMAN ROUTINE 4 [facility]OS[facility] ECG INC INC W/LEAST 12 LDS TRCG ONLY W/O I&R O2 CONC 1 E1390 JAIR ADAM DEL PORT 4 HOME HOME 85%/>02 MEDICAL MEDICAL CONC AT EQUIPME EQUIPME [facility] FLW RATE PRTBLE E0431 JAIR ADAM GASEOUS 4 HOME HOME O2 SYS MEDICAL MEDICAL RENT; EQUIPME EQUIPME FLWMTR HUMIDFR&M ASK O2 CONC 1 E1390 JAIR ADAM DEL PORT 4 HOME HOME 85%/>02 MEDICAL MEDICAL CONC AT EQUIPME EQUIPME PRS FLW RATE O2 CONC 1 E1390 JAIR ADAM DEL PORT 4 HOME HOME 85%/>02 MEDICAL MEDICAL CONC AT EQUIPME EQUIPME [facility] FLW RATE NONEMERG A0120 FEDERATED FEDERATED TRNSPRT: 4 [facility] TRANSPORT SERVBLUEG MTN ATION SER INES AREA/OTH SYS COMPREHEN 29686 LAMINE RAMAN SIVE 4 [facility] [place] [address] LAMINE RAMAN THYROID 4 [facility] STIMULATI INC INC NG HORMONE TSH CULTURE 18585 LAMINE RAMAN BACTERIAL 4 [facility] INC INC QUANTTATI VE COLONY COUNT URINE URNLS DIP 38845 LAMINE RAMAN 4 [facility] STICK/TAB INC INC LET REAGENT AUTO MICROSCOP Y LIPID 94887 LAMINE RAMAN PANEL 4 [facility]OS[facility] INC INC BLOOD 25601 LAMINE RAMAN COUNT 4 MEM HOSP MEM [...] EQUIPME EQUIPME FLWMTR HUMIDFR&M ASK AMB A0427 [facility] SERVICE 2 AMBULANCE AMBULANCE ALS SERVICE SERVICE EMERGENCY TRANSPORT LEVEL 1 GROUND A0425 [facility] MILEAGE 2 AMBULANCE AMBULANCE PER SERVICE SERVICE STATUTE MILE PRTBLE E0431 JAIR ADAM GASEOUS 2 HOME HOME O2 SYS MEDICAL MEDICAL RENT; EQUIPME EQUIPME FLWMTR HUMIDFR&M ASK O2 CONC 1 E1390 JAIR LEDESMA PORT 2 HOME HOME 85%/>02 MEDICAL MEDICAL CONC AT EQUIPME EQUIPME PRSC FLW RATE NONEMERG A0120 [facility] TRNSPRT: 2 [facility] ACTION ACTION [facility] AREA/OTH SYS NONEMERG A0120 [facility] TRNSPRT: 2 [facility] ACTION ACTION [facility] AREA/OTH SYS O2 CONC 1 E1390 JAIR LEDESMA PORT 2 HOME HOME 85%/>02 MEDICAL MEDICAL CONC AT EQUIPME EQUIPME PRSC FLW RATE PRTBLE E0431 JAIR ADAM GASEOUS 2 HOME HOME O2 SYS MEDICAL MEDICAL RENT; EQUIPME EQUIPME FLWMTR HUMIDFR&M ASK NONEMERG A0120 LKLP LKLP TRNSPRT: 2 [facility] [place] ACTION ACTION [place] AREA/OTH SYS [...] EQUIPME EQUIPME PRSC FLW RATE PRTBLE E0431 JARI ADAM GASEOUS 2 HOME HOME O2 SYS [...] AT EQUIPME EQUIPME [facility]SC [facility] [id number] [place]IE MCKEMIE DISCHARGE 2 JR CYDNEY JR CYDNEY DAY MANAGEMEN T 30 MIN/< SBSQ 90017 [facility] 2 GREGORIO GREGORIO CARE/DAY 25 MINUTES SBSQ 16697 [facility] 2 GREGORIO GREGORIO CARE/DAY 25 MINUTES ECG 55348 [facility] ROUTINE 2 GREGORIO GREGORIO ECG W/LEAST 12 LDS I&R ONLY SBSQ 57521 [facility] 2 GREGORIO GREGORIO CARE/DAY 25 MINUTES SBSQ 36258 [facility] 2 GREGORIO GREGORIO CARE/DAY 25 MINUTES RADIOLOGI 28537 [place] [facility] C EXAM 2 MEDICAL NAM CHEST 2 IMAGING VIEWS ASS FRONTAL&L ATERAL CT THORAX 54130 [place] [facility] 2 MEDICAL NAM W/CONTRAS IMAGING T ASS MATERIAL ECG 94323 [facility] ROUTINE 2 GREGORIO GREGORIO ECG W/LEAST 12 LDS I&R ONLY AMB A0427 [facility] SERVICE 2 AMBULANCE AMBULANCE ALS SERVICE SERVICE EMERGENCY TRANSPORT LEVEL 1 INITIAL 77558 [facility] 2 GREGORIO GREGORIO CARE/DAY 50 MINUTES GROUND A0425 [facility] MILEAGE 2 AMBULANCE AMBULANCE PER SERVICE SERVICE STATUTE MILE RADIOLOGI 96834 [place] [facility] C 2 MEDICAL NAM EXAMINATI IMAGING ON CHEST ASS SINGLE VIEW FRONTAL RADIOLOGI 67887 [place] [facility] C 2 MEDICAL NAM EXAMINATI IMAGING ON CHEST ASS SINGLE VIEW FRONTAL GROUND A0425 [facility] MILEAGE 2 AMBULANCE AMBULANCE PER SERVICE SERVICE STATUTE MILE AMB A0427 [facility] 2 AMBULANCE AMBULANCE ALS SERVICE SERVICE EMERGENCY TRANSPORT LEVEL 1 NONEMERG A0120 [facility] TRNSPRT: 2 [facility] [place] [facility] AREA/OT SYS COMPUTER- [id number] LAMINE RAMAN AIDED 2 [facility] DETECTION [facility] INC SCREENING MAMMOGRAP HY SCREENING G0202 LAMINE RAMAN 2 [facility] MAMMOGRAP INC INC HY PREETHI INCL CAD WHEN PERFORMD CYTP 88211 BIO BIO CERVICAL/ 2 REFERNCE 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 REQ IES IES INTERP PHYSICIAN CYTP C/V 28729 BIO BIO AUTO THIN 2 REFERNCE REFERNCE LYR LABORATOR LABORATOR PREPJ SCR IES IES MNL RESCR PHYS NONEMERGE A0100 [facility] 1 COMMUNITY TRANSPORT ACTION ATION; TAXI RADEX HIP 384[address] [facility] RAMIREZZAID 1 MEDICAL NAM UNILATERA IMAGING L ASS COMPLETE MINIMUM 2 VIEWS NONEMERGE A0100 [facility] 1 COMMUNITY TRANSPORT ACTION ATION; TAXI NONEMERGE A0100 [facility] 1 COMMUNITY TRANSPORT ACTION ATION; TAXI ECG 60626 LAMINEFLORENCIO RAMAN ROUTINE 0 [facility] ECG INC INC W/LEAST 12 LDS TRCG ONLY W/O I&R AMB A0427 [facility] SERVICE 0 AMBULANCE AMBULANCE ALS SERVICE SERVICE EMERGENCY TRANSPORT LEVEL 1 AMB A0422 [facility] OXYGEN&O2 0 AMBULANCE AMBULANCE SUPPLIES SERVICE [place] [address] [facility] MAR, ANGIOGRAP 0 MEDICAL JORDON HY CHEST IMAGING W/CONTRAS ASSOCIATE T/NONCONT S RAST GROUND A0425 [facility] MILEAGE 0 AMBULANCE AMBULANCE PER SERVICE SERVICE STATUTE MILE COMPREHEN 85314 LAMINE RAMAN SIVE 0 [facility] METABOLIC INC INC PANEL FIBRIN 95144 LAMINE LAMINE DGRADJ 0 [facility] PRODUCTS INC INC D-DIMER QUAL/SEMI JALEESA RADIOLOGI 28800 [facility], C EXAM 0 MEDICAL JORDON CHEST 2 IMAGING VIEWS ASSOCIATE FRONTAL&L S ATERAL BLOOD 58436 LAMINE RAMAN COUNT 0 [facility] COMPLETE INC INC AUTO&AUTO DIFRNTL WBC ECG 63955 STEVE AHUMADA ROUTINE 0 EMERGENCY GRE ECG SERVICES W/LEAST 12 LDS I&R ONLY IADNA 17996 [facility] [place] 0 [employer] VIRUS HUMAN AMPLIFIED PROBE TQ CYTP C/V 16254 [facility] AUTO THIN 0 [place] [facility] [place] INC LYR PREPJ SCR MNL RESCR PHYS CYTP 15266 [facility] CERVICAL/ 0 VAGINAL INDIANAPO INDIANAPO REQ LIS PC LIS PC INTERP PHYSICIAN IADNA 00654 [facility] [place] 0 [facility] TRACHOMAT IS AMPLIFIED PROBE TQ BLOOD 15061 [facility] HARPEL COUNT 0 PHYSICIAN MALIHA HEMOGLOBI GROUP N PCC COLLECTIO 95158 [facility] N 0 PHYSICIAN MALIHA CAPILLARY GROUP BLOOD PCC SPECIMEN IADNA 40013 [facility] [place]ISS[place] 0 [facility] GONORRHOE AE AMPLIFIED PROBE TQ COMPREHEN 50914 LAMINE RAMAN SIVE 9 [facility] METABOLIC INC INC PANEL BLOOD 91189 LAMINE RAMAN COUNT 9 [facility] COMPLETE INC INC AUTO&AUTO DIFRNTL WBC LAPAROSCO 16187 [facility] SHE[place]BYSTAD PY SURG 9 , FRANCHESCA , FRANCHESCA CHOLECYST ECTOMY LEVEL III 41427 PATHOLOGY PATHOLOGY SURG 9 & & PATHOLOGY CYTOLOGY CYTOLOGY LAB LAB GROSS&[place] [address] LAMINE RAMAN INFUSION 9 [facility] THERAPY/P INC INC ROPHYLAXI S /DX 1ST TO 1 HR THERAPEUT 85277 LAMINE RAMAN IC 9 [facility] INJECTION INC INC IV PUSH EACH NEW DRUG PRESSURIZ 31015 LAMINE RAMAN ED/NONPRE 9 [facility] SSURIZED [place] [address] LAMINE RAMAN INFUSION 9 [facility] THERAPY INC INC PROPHYLAX IS/DX EA HOUR ANES 63199 [facility], INTRAPERI 9 ANESTH JACK A TONEAL OF THE [place]ER [place] ABDOMEN W/LAPS NOS LAPAROSCO 5123 LAMINE RAMAN PIC [address] [facility] CHOLECYST INC INC ECTOMY ECG 45388 LAMINE RAMAN ROUTINE 9 [facility] ECG INC INC W/LEAST 12 LDS TRCG ONLY W/O I&R ECG 99222 LAMINE GUPTAMIE ROUTINE 9 ED [facility] W/LEAST PROF SERV 12 LDS I&R ONLY BLOOD 38300 LAMINE RAMAN COUNT [address] [facility] COMPLETE INC INC AUTO&AUTO DIFRNTL WBC BX/EXC 05896 [facility] SCHULSTAD LYMPH 9 , FRANCHESCA , FRANCHESCA NODE OPEN DEEP AXILLARY NODE INJ 42878 LAMINE RAMAN RADIOACTI 9 [facility] VE TRACER INC INC FOR ID OF SENTINEL NODE PATH 44943 ZARINA GIL 9 DIONNE & CARON Marquez SURG DUBILIER CYTOLOGIC EXAM INITIAL SITE ANES 84439 [facility] 9 ANESTH FERN F EXTREMITI OF THE ES ANT BLUEGRASS TRUNK & PERINEUM NOS MASTECTOM 54246 GEENA SEAY Y PARTIAL 9 , FRANCHESCA , FRANCHESCA US BREAST 74920 JACKELYN MAR, REAL 9 MEDICAL [facility] TIME IMAGING W/IMAGE ASSOCIATE DOCUMENTA S TION PREOP 29809 JACKELYN MAR PLACEMENT 9 MEDICAL [facility] IMAGING LOCALIZAT ASSOCIATE ION WIRE S BREAST RADIOLOGI 74734 JACKELYN MAR RADHIKA 9 MEDICAL JORD[place] EXAMINATI IMAGING [place] [address] LAMINE RAMAN INFUSION 9 [facility] THERAPY INC INC PROPHYLAX [place] [address] JACKELYN MAR, GUIDANCE 9 MEDICAL [facility] NEEDLE IMAGING PLACEMENT ASSOCIATE IMG S&I S PRESSURIZ 13112 LAMINE RAMAN ED/NONPRE 9 [facility] SSURIZED INC INC INHALATIO N TREATMENT THERAPEUT 62193 LAMINE RAMAN IC 9 [facility] INJECTION [place] [address] LAMINE RAMAN INFUSION 9 [facility] THERAPY/P INC INC ROPHYLAXI S /DX 1ST TO 1 HR LEVEL V 21553 PATHOLOGY PATHOLOGY SURG 9 & & PATHOLOGY CYTOLOGY CYTOLOGY LAB LAB GROSS&TROY ROSCOPIC EXAM SUBTOTAL 8529 LAMINE RAMAN MASTECTOM 9 [facility] Y INC INC EXCISION 4023 LAMINE RAMAN OF 9 [facility] AXILLARY INC INC LYMPH NODE ECG 21392 LAMINE RAMAN ROUTINE 9 [facility] ECG INC INC W/LEAST 12 LDS TRCG ONLY W/O I&R BASIC 53183 LAMINE RAMAN METABOLIC 9 [facility] PANEL INC INC CALCIUM TOTAL BLOOD 48552 LAMINE RAMAN COUNT 9 [facility] COMPLETE INC INC AUTO&AUTO DIFRNTL WBC ECG 04770 LAMINE OLIVA, ROUTINE 9 [facility] W/LEAST PROF SERV 12 LDS I&R ONLY OPHTH 61494 MAUREEN CARLOS, MEDICAL 9 VISION FEMI A XM&EVAL COMPRHNSV ESTAB PT 1/> M/GOOD [facility] 95574 PATHOLOGY PATHOLOGY DYANA 9 & & TUMOR CYTOLOGY CYTOLOGY IMHCHEM LAB LAB EA ANTIBODY MANUAL MAMMOGRAP 91313 LAMINE RAMAN HY 9 [facility] [place] [address] PATHOLOGY PATHOLOGY SURG 9 & & PATHOLOGY CYTOLOGY CYTOLOGY LAB LAB GROSS&TROY ROSCOPIC EXAM US BREAST 75146 [facility] MAR, REAL 9 MEDICAL JORDON TIME IMAGING W/IMAGE ASSOCIATE DOCUMENTA S TION BREAST 58028 [facility] RAMIREZZAID, BIOPSY 9 MEDICAL JORDON VACUUM IMAGING ASSISTED/ [place] [address] LAMINE RAMAN GUIDANCE 9 [facility] NEEDLE INC INC PLACEMENT IMG S&I CLOSED 8511 LAMINE RAMAN BIOPSY OF 9 [place] [address] [facility] ZAID, ABDOMINAL 9 MEDICAL JORDON REAL IMAGING TIME ASSOCIATE W/IMAGE S LIMITED US BREAST 00191 LAMINE RAMAN REAL 9 [facility] TIME INC INC W/[place] [address] LAMINE RAMAN LIPASE 9 [facility] INC INC AMB A0427 [facility] SERVICE 9 AMBULANCE AMBULANCE ALS SERVICE SERVICE EMERGENCY TRANSPORT LEVEL 1 COMPREHEN 72377 LAMINE RAMAN SIVE 9 [facility] METABOLIC INC INC PANEL GROUND A0425 [facility]ANCE AMBULANCE [place] [address] LAMINE RAMAN AMYLASE 9 [facility] INC INC BLOOD 73208 LAMINE RAMAN COUNT 9 [facility] COMPLETE INC INC AUTO&AUTO DIFRNTL WBC US BREAST 71865 LAMINE CÁRDENASON REAL 8 [facility] TIME INC INC W/IMAGE DOCUMENTA TION MAMMOGRAP 43728 LAMINE LAMINE HY 8 [facility] BILATERAL INC INC IADNA 72768 [facility] [place], [place] 8 [place] INC [place] D GONORRHOE AE AMPLIFIED PROBE TQ BLOOD 59229 ALBERT PINEDOL, COUNT 8 SHAHIDAL MD ALBERT Lord HEMOGLOBI N CYTP 59766 [facility] [place], CERV/VAG 8 [place] D AUTO THIN LAYER PREP MNL SCREEN IADNA 65354 [facility] [place], CHLAMYDIA 8 [place] D TRACHOMAT IS AMPLIFIED PROBE TQ BLOOD 09063 ALBERT KRAMER, OCCULT 8 SHAHIDAL MD ALBERT Lord PEROXIDAS E ACTV QUAL FECES 1-3 SPEC CYTP 62483 [facility] [place], CERVICAL/ 8 [place] D VAGINAL REQ INTERP PHYSICIAN IADNA 65494 [facility] [place], [place] 8 [place] D VIRUS HUMAN AMPLIFIED PROBE TQ LIPID 83585 LAMINE RAMAN PANEL 8 [facility] INC INC HEPATIC 70838 LAMINE RAMAN FUNCTION 8 [facility] PANEL INC INC Encounters Encounter Start End Date Code Location Performer Type Date OFFICE 05448 HITESH PROCTOR OUTPATIEN 7 7 T [facility] 30 MINUTES [facility] LAMINE - 7 7 [facility] INPATIENT INC [facility] 6 6 [facility] 6 6 [facility] 6 6 [facility] [place] [address] [facility] 6 6 OF THE PATIENT HELDER MOD-HI [facility]VERITY 45 MINUTES HOSPICE HOSPICE 6 6 [facility] 6 [facility] 6 6 [facility] 6 6 [facility] 5 5 [facility] 5 5 [facility] OFFICE 80850 [facility] OUTPATIEN 5 5 R FAMILY AMI T VISIT PRACTICE 15 MINUTES HOSPITAL LAMINE - 5 5 [facility] OUTPATIEN INC T EMERGENCY 94845 LAMINE HADLEYI 5 5 [facility] T VISIT P MODERATE SEVERITY EMERGENCY 60611 LAMINE 5 5 [facility] T VISIT LOW/MODER SEVERITY EMERGENCY 76030 [facility] ANTONIETA VISIT EMERGENCY HIGH PHYS SEVERITY& THREAT FUN OFFICE 29187 [facility] 4 4 [facility] T VISIT INTERNAL 15 MED MINUTES HOSPITAL LAMINE - 4 4 [facility] OUTPATIEN INC T HOSPITAL LAMINE - 4 4 [facility] OUTPATIEN INC T OFFICE 01939 [facility] OUTPATIEN 3 3 T NEW 45 MINUTES OFFICE 47147 HITESH PROCTOR OUTPATIEN 3 3 MIN MIN T VISIT 15 MINUTES OFFICE 60999 HITESH PROCTOR OUTPATIEN 3 3 MIN MIN T VISIT 15 MINUTES [facility], 2 2 REGISTRY OUTPATIEN & HOME HE T OFFICE 30113 [facility] HARPEL OUTPATIEN 2 2 MALIHA MALIHA T VISIT 15 MINUTES [facility], 2 2 REGISTRY OUTPATIEN & HOME HE T OFFICE 57517 HITESH PROCTOR OUTPATIEN 2 2 MIN MIN T VISIT 15 MINUTES HOSPITAL LAMINE - 2 2 [facility] INPATIENT INC EMERGENCY 70526 FRED IBARRA DEPT 2 2 CYDNEY CYDNEY VISIT HIGH SEVERITY& THREAT FUNJ OFFICE 62457 HITESH DUNHAMEN 2 2 MIN MIN T VISIT 15 MINUTES OFFICE 09608 [facility]PEL OUTPATIEN 2 2 MALIHA MALIHA T VISIT 15 MINUTES HOSPITAL LAMINE - 2 2 [facility] OUTPATIEN INC T OFFICE 54671 [facility] OUTPATIEN 2 2 MALIHA MALIHA T VISIT 15 MINUTES PERIODIC 54892 [facility] PREVENTIV 2 2 MALIHA MALIHA E MED EST PATIENT 40-64YRS OFFICE 18220 HITESH OCONNOR 1 1 MIN MIN T VISIT 15 MINUTES HOSPITAL LAMINE - [address] [facility] OUTPATIEN INC T OFFICE 00550 [facility] CONSULTAT 1 1 PHYSICIAN MUMTAZ Abdalla GROUP NEW/[facility] PATIENT 60 MIN OFFICE 95816 HITESH OCONNOR 1 1 MIN MIN T VISIT 15 MINUTES OFFICE 42420 HITESH OCONNOR 0 0 MIN MIN T VISIT 15 MINUTES EMERGENCY 17451 LAMINE [address] [facility] INC T VISIT MODERATE SEVERITY HOSPITAL LAMINE - 0 0 [facility] OUTPATIEN INC T EMERGENCY 99778 STEVE AHUMADA DEPT 0 0 EMERGENCY GRE VISIT SERVICES HIGH SEVERITY& THREAT FUN PERIODIC 32513 [facility] PREVENTIV 0 0 PHYSICIAN MALIHA E MED EST GROUP PATIENT PCC 40-64YRS OFFICE 64281 HITESH PROCTOR OUTPATIEN 0 0 NISHI Tapia T VISIT 15 MINUTES OFFICE 59227 HITESH PROCTOR OUTPATIEN 9 9 NISHI Tapia T VISIT 15 MINUTES OFFICE 51144 ELVIN OSBORN 9 9 [facility] VISIT HOSPITAL 15 PROF SERV MINUTES HOSPITAL LAMINE - 9 9 [facility] OUTPATIEN INC T OFFICE 57653 HITESH PROCTOR OUTPATIEN 9 9 NISHI Tapia T VISIT 15 MINUTES HOSPITAL LAMINE - 9 9 [facility]PAT[facility]EN [facility] LAMINE - 9 9 [facility] OUTPATIEN [facility] T OFFICE 07520 LAMINE KC, CONSULTAT 9 9 [facility] NEW/ESTAB PROF SERV PATIENT 80 MIN OFFICE 52822 [facility]UL[facility]AD CONSULTAT 9 9 , FRANCHESCA , FRANCHESCANahid MCKIN[place] NEW/ESTAB PATIENT 60 MIN HOSPITAL LAMINE - 9 9 [facility] OUTPATIEN [facility] LAMINE - 9 9 [facility]PATIEN [facility] T OFFICE 47584 SCH[facility] SCHULSTAD CONSULTAT 9 9 , FRANCHESCA , FRANCHESCA ION NEW/ESTAB PATIENT 60 MIN HOSPITAL LAMINE - [address] [facility] OUTPATIEN [facility] LAMINE - 9 9 [facility] OUTPATIEN [facility] T OFFICE 02089 HITESH PROCTOR OUTPATIEN 9 9 INSHI Tapia T VISIT 15 MINUTES EMERGENCY 73708 CHRIS MARC, 9 9 [facility] T VISIT ON MODERATE SEVERITY HOSPITAL LAMINE - 9 9 [facility] OUTPATIEN INC T OFFICE 07049 DAVID HERNANDEZ OUTPATIEN 8 8 DIONY Liz T NEW 30 MINUTES OFFICE 09476 HITESH PROCTOR OUTPATIEN 8 8 NISHI Small VISIT 15 MINUTES HOSPITAL LAMINE - [address] [facility] OUTPATIEN INC PERIODIC 08945 ALBERT KRAMER PREVENTIV 8 8 NIA PRICE E [facility] EST PATIENT 40-64YRS OFFICE 93987 HITESH PROCTOR OUTPATIDOMINGO 8 8 NISHI Small [facility] 30 MINUTES [facility] LAMINE - [address] [facility]
[2017-01-17 01:17] LABS: LYMPH # 6.3 K/mm3 (0.7-4.5); LYMPH % 34.2 % (10-50.0)
--- OUTSIDE RECORDS SUMMARY | 2017-01-17 01:23 | External Medical Summary Rpt ---
Author Author , Organization [employer] Address Unknown Phone Unavailable Care Team Providers Care Cheese Packer Name Role Phone [facility] Unavailable Unavailable [facility] ARNOLD, ARNOLD Unavailable Unavailable ARNOLD, ARNOLD Unavailable Unavailable ARNOLD MIN, ARNOLD Unavailable Unavailable MIN ARNOLD MIN, ARNOLD Unavailable Unavailable MIN ARNOLD, NISHI W, Unavailable Unavailable ARNOLD, NISHI W BEINEKE CURTIS, BEINEKE Unavailable Unavailable CURTIS PICKENS, PICKENS Unavailable Unavailable BESSON, BESSON Unavailable Unavailable BESSON GREGORIO, BESSON Unavailable Unavailable GREGORIO BESSON SHASHI A, Unavailable Unavailable BESSON, SHASHI A [facility]available [facility]available [facility], [facility] HERNANDEZ, HERNANDEZ Unavailable Unavailable [facility] Unavailable Unavailable SERVICE, [facility] Unavailable Unavailable SERVICE[facility], [facility] Unavailable Unavailable [facility] Unavailable Unavailable [place], [facility] Unavailable Unavailable [facility], [facility] CARON DO, Unavailable Unavailable CARON DO CRUTCHER Unavailable Unavailable ZAID NAM, Unavailable Unavailable ZAID NAM JORDON MAR, Unavailable Unavailable JORDON MAR [facility] [place], [facility] [place] [facility] Unavailable Unavailable [facility], [facility]ATED Unavailable Unavailable TRANSPORTATION SER, [facility] FRYMAN, FRYMAN Unavailable Unavailable FRYMAN EUG, FRYMAN Unavailable Unavailable EUG MONICO TROY, MONICO Unavailable Unavailable TROY BEA MARC S, Unavailable Unavailable BEA MARC HARPEL MALIHA, HARPEL Unavailable Unavailable MALIHA HARPEL MALIHA, HARPEL Unavailable Unavailable MALIHA ALBERT KRAMER R, Unavailable Unavailable HARSAVANAHL ALBERT R [facility] Unavailable Unavailable INC, [facility] Unavailable Unavailable [facility]PITAL P, [facility] P FEMI CARLOS, Unavailable Unavailable FEMI CARLOS [facility] Unavailable Unavailable PCC, [facility] P[facility], Unavailable Unavailable [facility] GEORGINA CANNON, Unavailable Unavailable GEORGINA CANNON [facility] Unavailable Unavailable [facility] Unavailable Unavailable IMAGING [facility], [facility] Unavailable Unavailable HOLDINGS, [facility] Unavailable Unavailable [facility]INGS, [facility], Unavailable Unavailable [facility], Unavailable Unavailable [facility] DIONY HERNANDEZ, Unavailable Unavailable DIONY HERNANDEZ JR DWI, SWAPNA Unavailable Unavailable JR DWI [facility] Unavailable Unavailable INTERNAL MED, [facility] MED [facility] Unavailable Unavailable ACTION, [facility] CARLEE RIVAS, CARLEE RIVAS Unavailable Unavailable MCKEMIYinka LAMAS, Unavailable Unavailable VERONICAKEMIFERN GARNER JR, JR Unavailable Unavailable Hany, FERN MCLEAN JR, EMMETT P, Unavailable Unavailable [...] [facility] #[id number] [facility] Unavailable Unavailable [id number] [address] [id number], [facility] [id number] # [id number] [facility] Unavailable Unavailable [facility] Unavailable Unavailable FRANCHESCA LAST, Unavailable Unavailable SHELBYSTAFIA FRANCHESCA SHASHAMAR AMI, SHALASH Unavailable Unavailable AMI [facility] Unavailable Unavailable E[facility], [facility] Unavailable Unavailable [facility], [facility] SOTINGEANU CURTIS, Unavailable Unavailable SOTINGEANU CURTIS [facility] BRANDYN DAVIS Unavailable Unavailable JACK WOOD, Unavailable Unavailable JACK [facility] Unavailable Unavailable [facility] Unavailable Unavailable [facility] Unavailable Unavailable [facility] Unavailable Unavailable PRACTICE, [facility] TAXI, Unavailable Unavailable RUDD TAXI [facility], Unavailable [facility]available [facility] [...] 11-28-2016 ARNOLD BRONCHITIS UNSPECIFIED I10 ESSENTIAL 10-27-2016 [facility] MEDICAL HYPERTENSIO IMAGING ASS N J441 CHRONIC 10-27-2016 [facility] OBSTRUCTIVE PHYSICIANS PULMONARY GROUP DZ W/EXACERBAT ION J984 OTHER 10-27-2016 [place] DISORD[facility]ICAL OF LUNG IMAGING ASS Z720 TOBACCO USE 10-27-2016 [facility] J479 BRONCHIECTA 10-25-2016 [facility] MEDICAL UNCOMPLICAT IMAGING ASS ED R0602 SHORTNESS 10-25-2016 [place] OF BREATH MEDICAL IMAGING ASS R590 LOCALIZED 10-25-2016 [place] ENLARGED MEDICAL LYMPH NODES IMAGING ASS I272 OTHER 10-24-2016 [facility] P HYPERTENSIO N I517 CARDIOMEGAL 10-24-2016 [facility] INC J8410 PULMONARY 10-24-2016 [facility] P Z9981 DEPENDENCE 10-24-2016 [facility] SUPPLEMENTA INC L OXYGEN R300 DYSURIA 03-30-2016 [facility] JET I2781 COR 12-28-2015 [facility] [place] [facility] CHRONIC [facility] I509 HEART 12-28-2015 [facility]OSPICE OF FAILURE THE UNSPECIFIED [facility] R0902 HYPOXEMIA 12-28-2015 [facility] THE [facility] H16743 OTHER LONG 07-07-2015 [facility] TERM PHYSICIANS CURRENT GROUP DRUG THERAPY Z853 PERSONAL 07-07-2015 [facility] HISTORY PHYSICIANS PRIMARY GROUP MALIG NEOPLASM BREAST R000 TACHYCARDIA 07-06-2015 [facility], UNSPECIFIED PLLC R05 COUGH 07-06-2015 [facility] SERVICE R918 OTHER 07-06-2015 [place] NONSPECIFIC MEDICAL ABNORMAL IMAGING ASS FINDING OF LUNG FIELD 486 PNEUMONIA, 05-18-2015 [facility] UNSPECIFIED MEDICAL EQUIPME 496 CHRONIC 05-18-2015 [facility] OBSTRUCTION MEDICAL NEC EQUIPME 6237 POLYP OF 05-05-2015 [facility] 6269 UNS D/O 05-05-2015 [facility] MENSTRUATIO FAMILY N&OTH ABN PRACTICE BLEED FE GNT TRACT 5990 URINARY 01-05-2015 LAB [facility] TRACT SARAH INFECTION HOLDINGS SITE NOT SPECIFIED 54832 11-25-2014 [facility] ION SER 4660 ACUTE 10-12-2014 [employer] BRONCHITIS [facility] P 515 POSTINFLAMM 10-12-2014 [employer] ATORY [facility] PULMONARY [facility] P FIBROSIS 31298 OTHER 10-12-2014 [place] DISEASES OF MEDICAL LUNG NOT IMAGING ASS ELSEWHERE CLASSIFIED 38502 SHORTNESS 10-12-2014 [place] [facility]ATH [facility] 7862 COUGH 10-12-2014 [facility] 19747 ASTHMA, 05-26-2014 YOUR UNSPECIFIED PHARMACY , [facility] UNSPECIFIED STATUS 1330 SCABIES 05-24-2014 [facility] INTERNAL [facility] 1749 MALIGNANT 05-24-2014 [place] NEOPLASM OF MEDICAL BREAST IMAGING ASS UNSPECIFIED SITE 66944 OTHER 05-24-2014 [facility] SPECIFIED N EMERGENCY CARDIAC PHYS DYSRHYTHMIA S 93685 OBSTRUCTIVE 05-24-2014 [facility] CHRONIC N EMERGENCY BRONCHITIS PHYS WITH EXACERBATIO N 40543 OTHER 05-24-2014 [place] DYSPNEA AND MEDICAL IMAGING ASS RESPIRATORY ABNORMALITI ES V103 PERSONAL 05-24-2014 [employer] HISTORY OF [facility] P NEOPLASM OF BREAST V148 PERSONAL 05-24-2014 [employer] HISTORY [facility] ALLERGY [facility] P SPEC MEDICINAL AGTS 2724 OTHER AND 03-12-2014 [employer] UNSPECIFIED MEM HOS[facility] INC HYPERLIPIDE SHOLA 2859 UNSPECIFIED 03-12-2014 [employer] ANEMIA [facility] INC V700 ROUTINE 03-12-2014 [employer] [facility]AL [facility] MEDICAL INC EXAM@HEALTH CARE FACL 4928 OTHER 05-21-2013 [facility] EMPHYSEMA 52103 REFLUX 05-21-2013 [place] [place] ESOPHAGITIS 7242 LUMBAGO 05-21-2013 [facility] 7336 TIETZES 05-03-2013 AR[facility] MIN DISEASE 4619 ACUTE 12-03-2012 AR[facility] MIN SINUSITIS, UNSPECIFIED 7810 ABNORMAL 07-05-2012 [facility] INVOLUNTARY AMBULANCE MOVEMENTS SERVICE 42372 OSTEOARTHRO 03-08-2012 NURSES S INVLV MX REGISTRY & SITES BUT HOME HE NOT SPEC GEN V5789 OTHER 03-08-2012 NURSES SPECIFIED REGISTRY & REHABILITAT HOME HE ION PROCEDURE OTHER 6272 SYMPTOMATIC 03-01-2012 HARPEL MALIHA MENOPAUSAL/ FEMALE CLIMACTERIC STATES V1322 PERSONAL 03-01-2012 HARPEL MALIHA HISTORY OF CERVICAL DYSPLASIA 88038 UNSPECIFIED 02-20-2012 HITESH COPELAND CONSTIPATIO N 5199 UNSPECIFIED 02-09-2012 [place] DISEASE OF MEDICAL IMAGING ASS RESPIRATORY SYSTEM 7856 ENLARGEMENT 02-09-2012 [facility] LYMPH MEDICAL NODES IMAGING ASS 7850 UNSPECIFIED 02-08-2012 [facility] TACHYCARDIA SERVICE 7851 PALPITATION 02-08-2012 [facility] S AMBULANCE SERVICE 76903 HYPOXEMIA 02-08-2012 FRED LAMAS 78027 LUMP OR 11-21-2011 HARPEL MALIHA MASS IN BREAST 01217 DYSPLASIA 11-14-2011 HARPEL MALIHA OF CERVIX UNSPECIFIED 55550 OTHER 11-14-2011 [place] ABNORMAL MEDICAL FINDING IMAGING ASS RADIOLOGICA L EXAM BREAST 76192 PAP SMER 11-14-2011 HARPEL MALIHA CERV W/ATYPICAL SQUAMOUS CELLS UNDET V1041 PERSONAL 11-14-2011 HAR[facility] MALIHA HISTORY MALIGNANT NEOPLASM CERVIX UTERI V7612 OTHER 11-14-2011 [place] SCREENING MEDICAL MAMMOGRAM IMAGING ASS V7231 ROUTINE 09-27-2011 [facility] MALIHA GYNECOLOGIC AL EXAMINATION V7641 SCREENING 09-27-2011 [facility] MALIHA FOR MALIGNANT NEOPLASM OF THE RECTUM 26602 PAIN IN 03-11-2011 [place] JOINT MEDICAL PELVIC IMAGING ASS REGION AND THIGH 7243 SCIATICA 03-11-2011 [facility]ANS GROUP 5110 PLEURISY 07-01-2010 HITESH COPELAND WITHOUT MENTION EFFUS/[place] [address] PAIN IN 02-23-2010 [facility] PROF SERV 7231 CERVICALGIA 02-23-2010 [facility] PROF SERV 7245 UNSPECIFIED 02-23-2010 [employer] BACKACHE [facility] INC 81509 CHEST PAIN 02-23-2010 [place] UNSPECIFIED MEDICAL IMAGING ASSOCIATES 45298 PAINFUL 02-23-2010 [facility] PROF SERV 07503 OTHER CHEST 02-23-2010 [facility] AMBULANCE SERVICE 61066 PAP SMER 12-15-2009 [facility] W/HI [place] [facility] GRADE SQUAMOUS INTRAEPITH LES V780 SCREENING 12-15-2009 [facility] FOR IRON PHYSICIAN DEFICIENCY GROUP PCC ANEMIA 92386 OTHER 10-16-2009 HITESH MALAISE AND NISHI Tapia FATIGUE 14945 ESOPHAGEAL 02-27-2009 H[facility] REFLUX NISHI W 5759 UNSPECIFIED 02-27-2009 H[facility] DISORDER NISHI Tapia OF GALLBLADDER 2720 PURE 02-10-2009 SCHULSTAD, HYPERCHOLES FRANCHESCA TEROLEMIA 93249 CALCU 02-10-2009 SCHULSTAD, GALLBLADD FRANCHESCA W/OTH CHOLECYST W/O MENTION OBST 51304 CALCU 02-10-2009 COMMUNITY GALLBLADD ANESTH OF W/O MENTION THE [facility] CHOLECYST/O BST 40172 ABDOMINAL 02-10-2009 SCHULSTAD, PAIN RIGHT FRANCHESCA UPPER QUADRANT 54186 UNSPECIFIED 12-05-2008 [place] ABNORMAL MEDICAL MAMMOGRAM IMAGING ASSOC[facility]ATES 59563 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-2008 [facility] DEGENERATIO N OF PERIPHERAL RETINA 32163 OTHER SIGN 11-20-2008 [place] AND SYMPTOM MEDICAL IN BREAST IMAGING ASSOC[facility]ATES 06765 ABDOMINAL 10-28-2008 [place] PAIN, MEDICAL UNSPECIFIED IMAGING SITE ASSOCIATES 21107 ABDOMINAL 10-28-2008 [facility] PAIN, MEM HOS[facility] GENERALIZED INC 80656 ACUTE 10-15-2008 PEREZ GASTRITIS [employer] MENTION OF HEMORRHAGE 15792 WHEEZING 10-15-2008 [facility] SERVICE 462 ACUTE 07-07-2008 DAVID, PHARYNGITIS DIONY Liz 44550 DYSPHAGIA 07-07-2008 DAVID, UNSPECIFIED DIONY Liz 7842 SWELLING 06-30-2008 HITESH MASS OR NISHI Tapia LUMP IN HEAD AND NECK 49607 ABNORM 06-27-2008 [place] HRT MEDICAL RATE/RHYTHM IMAGING 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 39949 MAMMOGRAPHI 06-27-2008 [place] C MEDICAL MICROCALCIF IMAGING ICATION ASSOCIATES V7388 SPECIAL SCR 2008 [facility] [place] INC EXAMINATION OTH SPEC CHLAMYDIAL DZ V745 SCREENING 2008 [facility] EXAMINATION [place] INC FOR VENEREAL DISEASE V762 SCREENING 2008 [facility] FOR [place] INC MALIGNANT NEOPLASM OF THE CERVIX 6983 LICHENIFICA 05-15-2008 HITESH TIFLORENCIO AND NISHI Tapia LICHEN SIMPLEX CHRONICUS Medications Na ND Rx Da Fi Fi Am Da Di Ph RX Ph St me C No te ll ll ou ys ag ar # ys at rm s nt no ma ic us Or Da si cy ia de te s n re d SI 16 03 04 30 30 00 [...] ET AN A IN C AM 16 03 04 30 10 00 [...] ET NT HI AN A IN C AZ 64 02 [...] BL HI ET AN A IN C LO 16 02 03 30 30 00 EA Ac RA 71 -0 -[address] ti TA 40 3- 0- 00 00 SI ve DI 48 20 20 47 DE NE 20 17 17 47 3 63 PH 10 AR MA MG CY TA OF BL CY ET NT HI AN A IN C AM 16 02 03 30 10 00 EA Ac OX 71 -0 -[address] ti IC 40 3- 0- 00 00 SI ve IL 29 20 20 47 DE LI 90 17 17 47 N 4 64 PH 50 AR 0 MA MG CY CA OF PS CY UL NT E HI AN A IN C IB 53 [...] 11 D RI TA 1 PH CH MN AR AR N- MA D CA CY W FF 03 50 93 -3 8 25 # -4 03 0 93 CR 00 03 09 30 30 RI 87 AR Ac ES 31 -0 -3 .0 TE 30 NO ti TO 00 2- 0- 00 75 LD ve R 75 20 20 AI 10 19 11 11 D RI 0 PH CH MG AR AR MA D TA CY W BL ET 03 93 8 # 03 93 FE 64 04 09 11 90 [...] 1 90 30 RI 90 AR Ac MD 14 -3 -3 .0 TE 11 NO [...] BL # ET 03 93 CR 00 02 12 30 [...] W 03 93 8 # 03 93 AD 00 11 11 60 [...] 34 8- 8- 00 39 LD ve MD 59 20 20 AI ED 31 10 [...] US 03 93 8 # 03 93 MD 37 03 03 11 56 28 RI [...] BL 93 ET 8 # 03 93 CR 00 02 02 00 30 30 [...] 5 93 MG 8 TA BL ET CE 00 02 02 00 30 30 RI 82 AR Ac RO 53 -1 -2 .0 TE 11 NO ti 63 2- 6- 00 39 LD ve TE 44 20 20 AI 23 10 10 D RI AD 8 PH CH VA AR AR NC M D ED #3 W 93 FO 8 RM TA B 59 10 02 00 8. 16 RI [...] 00 20 10 RI 80 AR Ac MD 17 -1 -2 .0 TE 43 NO [...] W MG 93 8 TA BL ET AZ 00 06 09 01 6. 5 [...] ET HI AN A AD 00 09 09 04 60 30 EA 99 AR Ac VA 17 -1 -[address] 44 NO ti IR 30 1- 0- 00 SI 29 LD ve 69 20 20 DE 25 60 08 09 RI 0- 0 PH CH 50 AR AR MA D DI CY W SK US OF CY NT HI AN A CY 00 03 09 01 40 14 EA 11 AR Ac CL 59 -0 -[address] 71 NO ti OB 13 3- 0- 00 SI 10 LD ve EN 25 20 20 DE ZA 60 09 09 RI MD 1 PH CH IN AR AR E [...] W OF CY NT HI AN A RA 64 06 07 00 60 30 EA 13 AR Ac NI 67 -2 -[address] 29 NO ti TI 90 6- 2- 00 SI 13 LD ve DI 90 20 20 DE NE 60 09 09 RI 3 PH CH 15 AR AR 0 MA D MG CY W TA OF BL CY ET NT HI AN A 60 06 07 00 24 6 EA 13 AR Ac 25 -2 -[address] 29 NO ti 80 6- 2- 00 SI 11 LD ve 23 20 20 0 DE 91 09 09 RI 6 PH CH AR AR MA D CY W OF CY NT HI AN A AZ [...] NT ET HI AN A AM 00 06 06 [...] CY UL NT E HI AN A 00 06 06 00 30 5 EA 13 SC Ac 59 -0 -[address] 08 HU ti 10 9- 8- 00 SI 06 LS ve 38 20 20 DE TA 50 09 09 D 1 PH CA AR MP MA BE CY LL K OF CY NT HI AN A V- 51 05 06 [...] US OF CY NT HI AN A MD 00 10 05 03 30 30 EA [...] CY BL NT ET HI AN A BU 00 03 04 00 60 30 EA 12 AR Ac MD 18 -3 -[address] 11 NO ti OP 50 0- 9- 00 SI 94 LD ve IO 41 20 20 DE N 56 09 09 RI HC 0 PH CH L AR AR SR MA D CY W 15 0 OF MG CY NT TA HI BL AN ET A 00 04 04 00 30 4 EA 12 SC Ac 59 -0 -[address] 19 HU ti 10 3- 9- 00 SI 56 LS ve 38 20 20 DE TA 50 09 09 D 1 PH CA AR MP MA BE CY LL K OF CY NT HI AN A TR 60 03 03 00 40 [...] ET HI AN A AM 00 02 03 [...] CY UL NT E HI AN A CR 00 10 03 02 30 30 EA 99 AR Ac ES 31 -2 -[address] 97 NO ti TO 00 3- 2- 00 SI 92 LD ve R 75 20 20 DE 10 19 08 09 RI 0 PH CH MG AR AR MA D TA CY W BL ET OF CY NT HI AN A AD [...] US OF CY NT HI AN A MD 00 10 03 02 30 30 EA 99 ROGER Ac EM 04 -2 -[address] 98 RP ti AR 61 3- 2- 00 SI 00 EL ve IN 10 20 20 DE 49 08 09 GE 1. 1 PH RA 25 AR LD MA R MG CY TA OF BL CY ET NT HI AN A CY 00 03 03 00 40 14 EA 11 AR Ac CL 59 -0 -[address] 71 NO ti OB 13 3- 2- 00 SI 10 LD ve EN 25 20 20 DE ZA 60 09 09 RI MD 1 PH CH IN AR AR E MA D 5 CY W MG OF TA CY BL NT ET HI AN A 49 02 02 00 28 14 EA 11 GA Ac 88 -1 -[address] 45 IN ti 40 2- 6- 00 SI 12 EY ve 54 20 20 DE 41 09 09 MN 0 PH CH AR AE MA L [...] NT HI AN A AM 00 02 02 [...] CY UL NT E HI AN A AD 00 09 01 [...] ET OF CY NT HI AN A MD 00 10 01 01 30 30 EA 99 ROGER Ac EM 04 -2 -[address] 98 RP ti AR 61 3- 5- 00 SI 00 EL ve IN 10 20 20 DE 49 08 09 GE 1. 1 PH RA 25 AR LD MA R MG CY TA OF BL CY ET NT HI AN A TR 60 11 [...] W OF CY NT HI AN A TR 60 11 11 [...] NT ET HI AN A AM 00 11 11 [...] CY UL NT E HI AN A CR 00 10 11 00 30 30 EA 99 AR Ac ES 31 -2 -[address] 97 NO ti TO 00 3- 7- 00 SI 92 LD ve R 75 20 20 DE 10 19 08 08 RI 0 PH CH MG AR AR MA D TA CY W BL ET OF CY NT HI AN A MD 00 10 11 00 30 30 EA [...] CY OF CY NT HI AN A HY [...] CY CA NT P HI AN A AD 00 09 09 00 60 30 EA 99 No Ac VA 17 -1 -[address] 44 t ti IR 30 1- 6- 00 SI 29 Av ve 69 20 20 DE ai 25 60 08 08 la 0- 0 PH bl 50 AR e MA DI CY SK US OF CY NT HI AN A 00 09 09 00 90 30 EA 99 No Ac 59 -1 -[address] 46 t ti 15 3- 6- 00 SI 94 Av ve 52 20 20 DE ai 20 08 08 la 1 PH bl AR e MA CY OF CY NT HI AN A MD 00 09 09 00 30 30 EA [...] ET OF CY NT HI AN A CE [...] CY UL NT E HI AN A 00 08 08 00 14 20 EA 99 No Ac 59 -0 -[address] 01 t ti 70 8- 4- 99 SI 35 Av ve 01 20 20 DE ai 31 08 08 la 4 PH bl AR e MA CY OF CY NT HI AN A MD 00 07 03 01 10 10 EA [...] .0 ST 97 t ti IR 30 6 SI 25 Av ve 69 20 20 DE ai 25 60 07 08 la 0- 0 PH bl 50 AR e MA DI CY SK US OF CY NT HI AN A Procedures Procedure DOS Code Location Performer Comment O2 CONC 1 E1390 JAIR ADAM DEL PORT 7 HOME HOME 85%/>02 MEDICAL MEDICAL CONC AT EQUIPME EQUIPME [facility] FLW RATE PRTBLE E0431 JAIRSUSANA DE LOS SANTOSRELL GASEOUS 7 HOME HOME O2 SYS MEDICAL MEDICAL RENT; EQUIPME EQUIPME FLWMTR HUMIDFR&M ASK O2 CONC 1 E1390 JAIR LEDESMA PORT 7 HOME HOME 85%/>02 MEDICAL MEDICAL CONC AT EQUIPME EQUIPME PRS FLW RATE PRTBLE E0431 JAIR ADAM GASEOUS 7 HOME HOME O2 SYS MEDICAL MEDICAL RENT; EQUIPME EQUIPME FLWMTR HUMIDFR&M [facility] [address] [facility] FRYMAN DISCHARGE 7 PHYSICIAN DAY S GROUP MANAGEMEN T 30 MIN/< RADIOLOGI 44366 [facility] C EXAM 7 MEDICAL CHEST 2 IMAGING VIEWS ASS FRONTAL&L ATERAL CT THORAX 02218 [facility] W/O 7 MEDICAL CONTRAST IMAGING MATERIAL ASS FINAL G9638 [facility] REPORTS 7 MEDICAL W/O DOC IMAGING 1/MORE ASS DOSE REDUCTION TECH FINAL RPT G9557 [facility] CT/MRI 7 MEDICAL CHEST/NCK IMAGING /U/S NO ASS THR NOD<1.0 CM ECG 53117 [facility] OLIVA ROUTINE 7 [facility] W/LEAST P 12 LDS I&R ONLY RADIOLOGI 30427 [place] [facility] C 7 MEDICAL EXAMINATI IMAGING ON CHEST ASS SINGLE VIEW FRONTAL GROUND A0425 [facility] MILEAGE 7 AMBULANCE AMBULANCE PER SERVICE SERVICE STATUTE MILE AMB A0427 [facility] SERVICE 7 AMBULANCE AMBULANCE ALS SERVICE SERVICE EMERGENCY TRANSPORT LEVEL 1 O2 CONC 1 E1390 JAIR LEDESMA PORT 7 HOME HOME 85%/>02 MEDICAL MEDICAL CONC AT EQUIPME EQUIPME PRS FLW RATE PRTBLE E0431 JAIR JAIR GASEOUS 7 HOME HOME O2 SYS MEDICAL [...] MEDICAL CONC AT EQUIPME PRSC FLW RATE PRTBLE E0431 JAIR PANDYA GASEOUS 6 HOME O2 SYS MEDICAL RENT; EQUIPME FLWMTR HUMIDFR&M ASK HOSPICE/H Q5001 HOSPICE HOSPICE OME 6 OF THE [facility] PROV PT HOME/RESI DENCE URNLS DIP 50814 COMBINED COMBINED 6 PHYSICIAN PHYSICIAN STICK/TAB S LA S LA LET REAGENT AUTO MICROSCOP Y VOLUME 87528 COMBINED COMBINED MEASUREME 6 PHYSICIAN PHYSICIAN NT TIMED S LA S LA COLLECTIO N EACH HOSPICE/H Q5001 HOSPICE HOSPICE OME 6 OF THE [facility] PT HOME/RESI DENCE HOSPICE/ Q5001 HOSPICE HOSPICE OME 6 OF THE OF THE [facility] PT HOME/RESI DENCE HOSPICE/H Q5001 HOSPICE HOSPICE OME 6 OF THE OF [facility] PT HOME/RESI DENCE HOSPICE/ Q5001 HOSPICE HOSPICE OME 6 OF THE OF [facility] PT HOME/RESI DENCE HOSPICE/ Q5001 HOSPICE HOSPICE OME 6 OF THE OF THE [facility] PT HOME/RESI DENCE HOSPICE/ Q5001 HOSPICE HOSPICE OME 6 OF THE OF [facility] PT HOME/RESI DENCE HOSPICE/ Q5001 HOSPICE HOSPICE OME 6 OF THE OF [facility] PT HOME/RESI DENCE HOSPICE/ Q5001 HOSPICE HOSPICE OME 5 OF THE [facility] PT HOME/RESI [facility] [address] MANAGEMEN T 30 MIN/< SBSQ [address] 15 MINUTES SBSQ 22307 [facility] 5 PHYSICIAN [facility] CARE/DAY S GROUP [address] THORAX 19062 [place] BOUBACAR 5 MEDICAL CURTIS W/CONTRAS IMAGING T ASS MATERIAL RADIOLOGI 84649 [place] ZAID 5 MEDICAL NAM EXAMINATI IMAGING ON CHEST ASS SINGLE VIEW FRONTAL INITIAL [address] 50 MINUTES ECG 69839 LAMINE BARCENAS JR ROUTINE [address] [place] [address] W/LEAST P 12 LDS I&R ONLY AMB A0427 [facility] SERVICE 5 AMBULANCE AMBULANCE ALS SERVICE SERVICE EMERGENCY TRANSPORT LEVEL 1 GROUND A0425 [facility] 5 AMBULANCE AMBULANCE PER SERVICE SERVICE STATUTE MILE CRITICAL 54859 [facility] 5 PHYSICIAN U CURTIS ILL/INJUR S, PLLC ED PATIENT INIT 30-74 MIN O2 CONC 1 E1390 JAIR OLMEDO 5 [...] 85%/>02 MEDICAL MEDICAL CONC AT EQUIPME [facility] FLW RATE CULTURE 88309 [facility] BACTERIAL 5 SARAH SARAH HOLDINGS HOLDINGS QUANTTATI VE COLONY COUNT URINE O2 CONC 1 E1390 JAIR OLMEDO 5 HOME HOME 85%/>02 MEDICAL MEDICAL CONC AT EQUIPME EQUIPME PRSC FLW RATE PRTBLE E0431 JAIR ADAM GASEOUS 5 HOME HOME O2 SYS MEDICAL MEDICAL RENT; EQUIPME EQUIPME FLWMTR HUMIDFR&M ASK NONEMERGE A0100 [facility] NCY 5 R TAXI TRANSPORT TRANSPORT ATION; ATION [...] RENT; EQUIPME EQUIPME FLWMTR HUMIDFR&M ASK RADIOLOGI 66770 [facility]INE RAMAN C EXAM 5 [facility] CHEST 2 INC INC VIEWS FRONTAL&L ATERAL PRTBLE E0431 JAIR ADAM GASEOUS 5 HOME [...] EQUIPME EQUIPME PRSC FLW RATE NONEMERG A0120 FEDERATED FEDERATED TRNSPRT: 4 TRANS MINI-BUS TRANSPORT SERVBLUEG MTN ATION SER INES AREA/OTH SYS O2 CONC 1 E1390 JAIR ADAM DEL PORT 4 HOME HOME 85%/>02 MEDICAL MEDICAL CONC AT EQUIPME EQUIPME PRSC FLW RATE PRTBLE E0431 JAIR ADAM GASEOUS 4 HOME HOME O2 SYS MEDICAL MEDICAL RENT; EQUIPME EQUIPME FLWMTR HUMIDFR&M ASK PRTBLE E0431 JAIRSUSANA ADAM GASEOUS 4 HOME HOME O2 SYS MEDICAL MEDICAL RENT; EQUIPME EQUIPME FLWMTR HUMIDFR&M ASK O2 CONC 1 E1390 JAIR ADAM DEL PORT 4 HOME HOME 85%/>02 MEDICAL MEDICAL CONC AT EQUIPME EQUIPME PRSC FLW RATE NEBULIZER E0570 JAIR ADAM WITH 4 HOME HOME COMPRESSO MEDICAL MEDICAL R EQUIPME EQUIPME INJECTION J0456 LAMINE RAMAN 4 [facility] AZITHROMY INC INC MARISELA 500 MG OBSERVATI 50710 [place] [facility] 4 [facility] DISCHARGE INTERNAL MED MANAGEMEN T PRESSURIZ 91296 LAMINE RAMAN ED/NONPRE 4 [facility] SSURIZED INC INC INHALATIO N TREATMENT NONINVASI 61024 LAMINE RAMAN VE 4 [facility] EAR/PULSE INC INC OXIMETRY SINGLE DETER BASIC 27885 LAMINE RAMAN METABOLIC 4 [facility] PANEL INC INC [facility] G0378 LAMINE RAMAN OBSERVATI 4 [facility] ON INC INC SERVICE PER HOUR ADMN SET A7005 YOUR YOUR W/SM VOL 4 [facility]Y [facility] NE[facility]UL[facility] NON-DISPB L BLOOD 42166 LAMINE RAMAN COUNT 4 [facility] COMPLETE INC INC AUTO&AUTO DIFRNTL WBC SMR PRIM 52542 LAMINE RAMAN SRC 4 [facility] GRAM/GIEM INC INC SA STAIN BCT FUN[facility] G0378 LAMINE RAMAN OBSERVATI 4 [facility] ON INC INC SERVICE PER HOUR INJECTION J0456 LAMINE RAMAN 4 [facility] AZITHROMY INC INC MARISELA 500 MG NONINVASI 82386 LAMINE RAMAN VE 4 [facility] EAR/PULSE INC INC OXIMETRY SINGLE DETER BASIC 74128 LAMINE RAMAN METABOLIC 4 [facility] [facility] PANEL INC INC CALCIUM TOTAL PRESSURIZ 01642 LAMINE RAMAN ED/NONPRE 4 [facility] SSURIZED INC INC INHALATIO N TREATMENT CUL BACT 94552 LAMINE RAMAN XCPT 4 [facility] URINE INC INC BLOOD/STO OL AEROBIC ISOL BLOOD 94285 LAMINE RAMAN GASES ANY 4 [facility] INC INC COMBINATI ON PH PCO2 PO2 CO2 HCO3 NATRIURET 99568 LAMINE RAMAN IC 4 [facility] PEPTIDE INC INC ECG 99876 [facility] ROUTINE 4 ANTONIETA ECG EMERGENCY W/LEAST PHYS 12 LDS I&R ONLY INITIAL 68612 [place] [facility] OBSERVATI 4 [facility] ON INTERNAL CARE/DAY MED 30 MINUTES PRESSURIZ 74755 LAMINE RAMAN ED/NONPRE 4 [facility] SSURIZED INC INC INHALATIO N TREATMENT RADIOLOGI 26875 [facility] 4 MEDICAL NAM EXAMINATI IMAGING ON CHEST ASS SINGLE VIEW FRONTAL CT THORAX 36339 JACKELYN MAR 4 MEDICAL NAM W/CONTRAS IMAGING T ASS [facility] G0378 LAMINE RAMAN OBSERVATI 4 [facility] [place] [address] LAMINE RAMAN ANGIOGRAP 4 [facility] HY CHEST INC INC W/CONTRAS T/NONCONT RAST LOCM Q9967 LAMINE RAMAN 300-399 4 [facility] MG/ML INC INC IODINE CONCENTRA TION PER ML BLOOD 79525 LAMINE RAMAN COUNT 4 [facility] COMPLETE INC INC AUTO&AUTO DIFRNTL WBC CULTURE 74036 LAMINE RAMAN BACTERIAL 4 [facility] BLOOD INC INC AEROBIC W/ID ISOLATES ECG 93465 LAMINE RAMAN ROUTINE 4 [facility] ECG INC INC W/LEAST 12 LDS TRCG ONLY W/O I&[place] [address] LAMINE RAMAN TROPONIN 4 [facility] QUANTITAT INC INC JUAN COMPREHEN 82629 LAMINE RAMAN SIVE 4 [facility] METABOLIC INC INC PANEL TOBACCO 27410 LAMINE RAMAN USE 4 [facility] CESSATION INC INC INTERMEDI ATE 3-10 MINUTES O2 CONC 1 E1390 JAIR ADAM DEL PORT 4 HOME HOME 85%/>02 MEDICAL MEDICAL CONC AT EQUIPME EQUIPME [facility] FLW RATE PRTBLE E0431 JAIR ADAM GASEOUS 4 HOME HOME O2 SYS MEDICAL MEDICAL RENT; EQUIPME EQUIPME FLWMTR HUMIDFR&M ASK O2 CONC 1 E1390 JAIR ADAM DEL PORT 4 HOME HOME 85%/>02 MEDICAL MEDICAL CONC AT EQUIPME EQUIPME PRS FLW RATE O2 CONC 1 E1390 JAIR ADAM DEL [place] 4 HOME HOME 85%/>02 MEDICAL MEDICAL CONC AT EQUIPME EQUIPME [facility] FLW RATE NONEMERG A0120 FEDERATED FEDERATED TRNSPRT: 4 TRANS MINI-BUS TRANSPORT SERVBLUEG MTN ATION SER INES AREA/OTH SYS COMPREHEN 57489 LAMINE RAMAN SIVE 4 [facility] METABOLIC INC INC PANEL BLOOD 58518 LAMINE RAMAN COUNT 4 [facility] COMPLETE INC INC AUTO&[place] [address] LAMINE RAMAN THYROID 4 [facility] STIMULATI INC INC NG HORMONE TSH LIPID 92161 LAMINE RAMAN PANEL 4 [facility] INC INC URNLS DIP 39924 LAMINE RAMAN 4 [facility] STICK/TAB INC INC LET REAGENT AUTO MICROSCOP Y CULTURE 16784 LAMINE RAMAN BACTERIAL 4 [facility] INC INC QUANTTATI VE COLONY COUNT URINE O2 CONC 1 E1390 JAIR DE LOS [...] EQUIPME FLWMTR HUMIDFR&M ASK PRTBLE E0431 JAIR DAAM GASEOUS 3 HOME HOME O2 SYS MEDICAL [...] MEDICAL RENT; EQUIPME EQUIPME FLWMTR HUMIDFR&M ASK COMMODE E0163 JAIR ADAM CHAIR 3 HOME [...] FLWMTR HUMIDFR&M ASK O2 CONC 1 E1390 JIAR ADAM DEL PORT 3 HOME HOME 85%/>02 [...] EQUIPME FLWMTR HUMIDFR&M ASK AMB A0427 [facility] SERVICE 2 AMBULANCE AMBULANCE ALS SERVICE SERVICE EMERGENCY TRANSPORT LEVEL 1 GROUND A0425 [facility] PER SERVICE SERVICE STATUTE MILE O2 CONC 1 E1390 JAIR LEDESMA PORT 2 HOME HOME 85%/>02 MEDICAL MEDICAL CONC AT EQUIPME EQUIPME PRSC FLW RATE PRTBLE E0431 JAIR ADAM GASEOUS 2 HOME HOME O2 SYS MEDICAL MEDICAL RENT; EQUIPME EQUIPME FLWMTR HUMIDFR&M ASK NONEMERG A0120 [facility] TRNSPRT: 2 [facility] MINI-BUS ACTION ACTION ALN AREA/OTH SYS NONEMERG A0120 [facility] TRNSPRT: 2 [facility] MINI-BUS ACTION ACTION [facility] AREA/OT SYS O2 CONC 1 E1390 JAIR ADAM DEL PORT 2 HOME HOME 85%/>02 MEDICAL MEDICAL CONC AT EQUIPME EQUIPME PRSC FLW RATE PRTBLE E0431 JAIR ADAM GASEOUS 2 HOME HOME O2 SYS MEDICAL MEDICAL RENT; EQUIPME EQUIPME FLWMTR HUMIDFR&M ASK NONEMERG A0120 LKLP LKLP TRNSPRT: 2 [facility] MINI-BUS ACTION ACTION MTN AREA/OTH SYS O2 CONC 1 E1390 JAIR LEDESMA PORT 2 HOME HOME 85%/>02 MEDICAL MEDICAL CONC AT EQUIPME EQUIPME PRSC FLW RATE PRTBLE E0431 JAIR ADAM GASEOUS 2 HOME HOME O2 SYS MEDICAL MEDICAL RENT; EQUIPME EQUIPME FLWMTR HUMIDFR&M ASK PRTBLE E0431 JAIR ADAM GASEOUS 2 HOME HOME O2 SYS MEDICAL MEDICAL RENT; EQUIPME EQUIPME FLWMTR HUMIDFR&M ASK O2 CONC 1 E1390 JAIR LEDESMA PORT 2 HOME HOME 85%/>02 MEDICAL MEDICAL CONC AT EQUIPME EQUIPME PRSC FLW RATE SERVICE G0152 NURSES NURSES OCCUP 2 REGISTRY REGISTRY THERAP & HOME [facility] & [facility] HOME HL[facility]/HOSP ICE EA 15 MIN SERVICE G0152 NURSES NURSES OCCUP 2 REGISTRY REGISTRY THERAP & HOME HE & HOME [facility] HOME HLTH/HOSP ICE EA 15 MIN SERVICE G0151 NURSES NURSES PHYS 2 REGISTRY REGISTRY THERAP & HOME HE & HOME HE HOME HLTH/HOSP ICE EA 15 MIN O2 CONC 1 E1390 JAIR LEDESMA PORT 2 HOME HOME 85%/>02 MEDICAL MEDICAL CONC AT EQUIPME EQUIPME PRSC FLW RATE PRTBLE E0431 JAIR ADAM GASEOUS 2 HOME HOME O2 SYS MEDICAL MEDICAL RENT; EQUIPME EQUIPME FLWMTR HUMIDFR&M [facility] 21905 MCKEMIE MCKEMIE DISCHARGE 2 JR CYDNEY JR CYDNEY DAY MANAGEMEN T 30 MIN/< SBSQ 51522 [facility] GREGORIO GREGORIO CARE/DAY 25 MINUTES SBSQ 95492 [facility] GREGORIO GREGORIO CARE/DAY 25 MINUTES ECG 83664 [facility] B[facility] ROUTINE 2 GREGORIO GREGORIO ECG W/LEAST 12 LDS I&R ONLY SBSQ 43401 [facility] GREGORIO GREGORIO CARE/DAY 25 MINUTES SBSQ 07119 [facility] GREGORIO GREGORIO CARE/DAY [address] THORAX 83238 [facility] 2 MEDICAL NAM W/CONTRAS IMAGING T ASS MATERIAL RADIOLOGI 19987 [facility]ID C EXAM 2 MEDICAL NAM CHEST 2 IMAGING VIEWS ASS FRONTAL&L ATERAL ECG 11111 [facility] ROUTINE 2 GREGORIO GREGORIO ECG W/LEAST 12 LDS I&R ONLY INITIAL 94535 [facility] GREGORIO GREGORIO CARE/DAY 50 MINUTES GROUND A0425 [facility] MILEAGE 2 AMBULANCE AMBULANCE PER SERVICE SERVICE STATUTE MILE AMB A0427 [facility] SERVICE 2 AMBULANCE AMBULANCE ALS SERVICE SERVICE EMERGENCY TRANSPORT LEVEL 1 RADIOLOGI 20305 [facility] C 2 MEDICAL NAM EXAMINATI IMAGING ON CHEST ASS SINGLE VIEW FRONTAL RADIOLOGI 27028 [facility] C 2 MEDICAL NAM EXAMINATI IMAGING ON CHEST ASS SINGLE VIEW FRONTAL AMB A0427 [facility] SERVICE 2 AMBULANCE AMBULANCE ALS SERVICE SERVICE EMERGENCY TRANSPORT LEVEL 1 GROUND A0425 [facility] PER SERVICE SERVICE STATUTE MILE NONEMERG A0120 [facility] TRNSPRT: 2 COMMUNITY COMMUNITY MINI-BUS ACTION ACTION [facility] AREA/OTH SYS SCREENING G0202 LAMINE RAMAN 2 [facility] MAMMOGRAP INC INC HY PREETHI INCL CAD WHEN PERFORMD - 29427 LAMINE RAMAN AIDED 2 [facility] DETECTION INC INC SCREENING MAMMOGRAP HY CYTP 73400 BIO BIO CERVICAL/ 2 REFERNCE 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 REQ IES IES INTERP PHYSICIAN CYTP C/V 51880 BIO BIO AUTO THIN 2 REFERNCE REFERNCE LYR LABORATOR LABORATOR PREPJ SCR IES IES MNL RESCR PHYS NONEMERGE A0100 [facility] NCY 1 COMMUNITY TRANSPORT ACTION ATION; TAXI NONEMERGE A0100 [facility] NCY 1 COMMUNITY TRANSPORT ACTION ATION; TAXI RADEX HIP 36113 [facility] MAR 1 MEDICAL NAM UNILATERA IMAGING L ASS COMPLETE MINIMUM 2 VIEWS NONEMERGE A0100 [facility] COMMUNITY TRANSPORT ACTION ATION; TAXI AMB A0427 [facility] SERVICE 0 AMBULANCE AMBULANCE ALS SERVICE SERVICE EMERGENCY TRANSPORT LEVEL 1 GROUND A0425 [facility] MILEAGE 0 AMBULANCE AMBULANCE PER SERVICE SERVICE STATUTE MILE AMB A0422 [facility] OXYGEN&O2 0 AMBULANCE AMBULANCE SUPPLIES SERVICE SERVICE LIFE SUSTAININ G SITUATION COMPREHEN 06468 LAMINE LAMINE SIVE 0 [facility] METABOLIC INC INC PANEL ECG 21957 LAMINEFLORENCIO RAMAN ROUTINE 0 [facility] ECG INC INC W/LEAST 12 LDS TRCG ONLY W/O I&R RADIOLOGI 02773 [place] ZA[facility] C EXAM 0 [facility] CHEST 2 IMAGING VIEWS ASSOCIATE FRONTAL&L S ATERAL BLOOD 29337 LAMINEFLORENCIO CÁRDENASON COUNT 0 [facility] COMPLETE INC INC AUTO&AUTO DIFRNTL WBC FIBRIN 55612 LAMINE RAMAN DGRADJ 0 [facility] PRODUCTS INC INC D-DIMER QUAL/[place] [address] [facility]AID, ANGIOGRAP 0 [facility] HY CHEST IMAGING W/CONTRAS ASSOCIATE T/NONCONT S RAST ECG 11508 STEVE AHUMADA ROUTINE 0 EMERGENCY GRE ECG SERVICES W/LEAST 12 LDS I&R ONLY IADNA 84305 [facility] [place] 0 [place] [facility] [place] INC TRACHOMAT IS AMPLIFIED PROBE TQ COLLECTIO 99743 [facility] HARPEL N 0 PHYSICIAN MALIHA CAPILLARY GROUP BLOOD PCC SPECIMEN IADNA 30406 [facility] NEISS[place] 0 [place] INC [place] INC GONORRHOE AE AMPLIFIED PROBE TQ IADNA 94628 [facility] [place] 0 [place] INC [place] INC VIRUS HUMAN AMPLIFIED PROBE TQ CYTP C/V 04-13-201 48393 [facility] AUTO THIN 0 [place] INC [place] INC LYR PREPJ SCR MNL RESCR PHYS CYTP 56054 [facility] CERVICAL/ 0 VAGINAL INDIANAPO INDIANAPO REQ LIS PC LIS PC INTERP PHYSICIAN BLOOD 90340 [facility] HARPEL COUNT 0 PHYSICIAN MALIHA HEMOGLOBI GROUP N PCC BLOOD 26806 ALMINE RAMAN COUNT 9 [facility] COMPLETE INC INC AUTO&AUTO DIFRNTL WBC COMPREHEN 17370 LAMINE RAMAN SIVE 9 [facility] METABOLIC INC INC PANEL ANES 06714 COMMUNITY NATHALY, INTRAPERI 9 ANESTH JACK A TONEAL OF THE UPPER BLUEGRASS ABDOMEN W/LAPS NOS LEVEL III 25221 PATHOLOGY PATHOLOGY SURG 9 & & PATHOLOGY CYTOLOGY CYTOLOGY LAB LAB GROSS&TROY ROSCOPIC EXAM LAPAROSCO 38538 GEENA SCHULSTAFIA PY SURG 9 , FRANCHESCA , [place] [address] LAMINE RAMAN INFUSION 9 [facility] THERAPY INC INC PROPHYLAX IS/DX EA HOUR PRESSURIZ 84472 LAMINE RAMAN ED/NONPRE 9 [facility] SSURIZED [place] [address] LAMINE RAMAN INFUSION 9 [facility] THERAPY/P INC INC ROPHYLAXI S /DX 1ST TO 1 HR THERAPEUT 96798 LAMINE RAMAN IC 9 [facility] INJECTION INC INC IV PUSH EACH NEW DRUG LAPAROSCO 5123 LAMINE RAMAN PIC 9 [facility] CHOLECYST INC INC ECTOMY ECG 17922 LAMINE MCLEAN ROUTINE 9 [facility] FERN W/LEAST PROF SERV 12 LDS I&R ONLY ECG 72800 LAMINE RAMAN ROUTINE 9 [facility] ECG INC INC W/LEAST 12 LDS TRCG ONLY W/O I&R BLOOD 04297 LAMINE RAMAN COUNT 9 [facility] COMPLETE INC INC AUTO&AUTO DIFRNTL WBC PREOP 00576 RYLEY PORRAS 9 MEDICAL [place] IMAGING LOCALIZAT ASSOCIATE ION WIRE S BREAST RADIOLOGI 88862 JACKELYN MAR RADHIKA 9 MEDICAL [place] EXAMINATI IMAGING ON ASSOCIATE [place] L[place] [address] PATHOLOGY PATHOLOGY SURG 9 & & PATHOLOGY CYTOLOGY CYTOLOGY LAB LAB GROSS&[place] [address] JACKELYN MAR GUIDANCE 9 [facility]ICAL [facility] NEEDLE IMAGING PLACEMENT ASSOCIATE IMG S&I S PATH 62786 ZARINA GIL 9 DIONNE & CARON C SURG DUBILIER CYTOLOGIC EXAM INITIAL SITE ANES 83701 [facility] INTEShalonda 9 ANESTH FERN F EXTREMITI OF THE ES ANT BLUEGRASS TRUNK & PERINEUM NOS US BREAST 88467 ERROL PORRAS 9 MEDICAL [place] TIME IMAGING W/IMAGE ASSOCIATE DOCUMENTA S TION THERAPEUT 15081 LAMINE RAMAN IC 9 [facility] INJECTION [place] [address] LAMINE RAMAN INFUSION 9 [facility] THERAPY/P INC INC ROPHYLAXI S /DX 1ST TO 1 HR PRESSURIZ 80953 LAMINE RAMAN ED/NONPRE 9 [facility] [place]URIZED [place] [address] LAMINE RAMAN INFUSION 9 [facility] THERAPY INC INC PROPHYLAX IS/DX EA HOUR MASTECTOM 37520 GEENA SEAY Y PARTIAL 9 , FRANCHESCA , FRANCHESCA BX/EXC 65779 GEENA SEAY LYMPH 9 , FRANCHESCA , FRANCHESCA NODE OPEN DEEP AXILLARY NODE INJ 89036 LAMINE RAMAN RADIOACTI 9 [facility] VE TRACER INC INC FOR ID OF SENTINEL NODE SUBTOTAL 8523 LAMINE RAMAN MASTECTOM 9 [facility] Y INC INC EXCISION 4023 LAMINE RAMAN OF 9 [facility] AXILLARY INC INC LYMPH NODE BASIC 04495 LAMINE RAMAN METABOLIC 9 [facility] PANEL INC INC CALCIUM TOTAL ECG 91727 LAMINE GRIMALDOSON, ROUTINE 9 [facility] W/LEAST PROF SERV 12 LDS I&R ONLY BLOOD 82805 LAMINE RAMAN COUNT 9 [facility] COMPLETE INC INC AUTO&AUTO DIFRNTL WBC ECG 40420 LAMINE RAMAN ROUTINE 9 [facility] ECG INC INC W/LEAST 12 LDS TRCG ONLY W/O I&R OPHTH 02132 [facility] VISION FEMI A XM&EVAL COMPRHNSV ESTAB PT 1/> M/[facility] 54971 PATHOLOGY PATHOLOGY DYANA 9 & & TUMOR CYTOLOGY CYTOLOGY IMHCHEM LAB [place] [address] PATHOLOGY PATHOLOGY SURG 9 & & PATHOLOGY CYTOLOGY CYTOLOGY LAB LAB GROSS&[place] [address] LAMINE RAMAN GUIDANCE 9 [facility] NEEDLE INC INC PLACEMENT IMG S&I BREAST 82003 [place] ZAID, BIOPSY 9 [facility] VACUUM IMAGING ASSISTED/ ASSOCIATE ROTATING S DEVICE MAMMOGRAP 18339 LAMINE RAMAN HY 9 [facility] UNILATERA INC INC L US BREAST 47488 [place] ZAID, REAL 9 [facility] TIME IMAGING W/IMAGE ASSOCIATE DOCUMENTA S TION CLOSED 8511 LAMINE RAMAN BIOPSY OF 9 [facility] BREAST INC INC US BREAST 05163 LAMINE RAMAN REAL 9 [facility] TIME [place] [address] [place] ZAID, ABDOMINAL 9 [facility] REAL IMAGING TIME ASSOCIATE W/IMAGE S LIMITED BLOOD 50655 LAMINE RAMAN COUNT 9 [facility] COMPLETE INC INC AUTO&[place] [address] LAMINE RAMAN LIPASE 9 [facility] INC INC COMPREHEN 49391 LAMINE RAMAN SIVE 9 [facility] [address] LAMINE RAMAN AMYLASE 9 [facility] INC INC GROUND A0425 [facility]ANCE AMBULANCE PER SERVICE SERVICE STATUTE MILE AMB A0427 [facility] SERVICE 9 AMBULANCE AMBULANCE ALS SERVICE SERVICE EMERGENCY TRANSPORT LEVEL 1 US BREAST 42136 LAMINE RAMAN REAL 8 [facility] TIME INC INC W/IMAGE DOCUMENTA TION MAMMOGRAP 97065 LAMINE RAMAN HY 8 [facility] BILATERAL INC INC CYTP 68462 [facility] [place], CERV/VAG 8 [place] INC GE[place]GIN[place] D AUTO THIN LAYER PREP MNL SCREEN IADNA 90944 [facility] [place], CHLAMYDIA 8 [place] INC [place] D TRACHOMAT IS AMPLIFIED PROBE TQ BLOOD 40589 ALBERT KRAMER, OCCULT 8 SHAHIDAL MD ALBERT Lord PEROXIDAS E ACTV QUAL FECES 1-3 SPEC BLOOD 20143 ALBERT KRAMER, COUNT 8 SHAHIDAL MD ALBERT Lord HEMOGLOBI N IADNA 68898 [facility] [place], NEISSERIA 8 [place] D GONORRHOE AE AMPLIFIED PROBE TQ CYTP 53461 [facility] [place], CERVICAL/ 8 [place] D VAGINAL REQ INTERP PHYSICIAN IADNA 79692 [facility] [place], [place] 8 [place] D VIRUS HUMAN AMPLIFIED PROBE TQ LIPID 28413 LAMINE LAMINE PANEL 8 [facility] INC INC HEPATIC 74430 LAMINE RAMAN FUNCTION 8 [facility] PANEL INC INC Encounters Encounter Start End Date Code Location Performer Type Date OFFICE 85849 HITESH PROCTOR OUTPATIEN 7 7 T [facility] 30 MINUTES [facility] LAMINE - 7 7 [facility] INPATIENT INC [facility]OS[facility] 6 6 [facility] 6 6 [facility] [place] [address] [facility] 6 6 OF THE PATIENT HELDER MOD-HI SEVERITY 45 MINUTES HOSPICE HOSPICE 6 6 [facility] 5 5 [facility] 5 5 [facility] OFFICE 77957 SOILA HOLLEY OUTPATIEN 5 5 R FAMILY AMI T VISIT PRACTICE 15 MINUTES HOSPITAL LAMINE - 5 5 [facility] OUTPATIEN INC T EMERGENCY 01272 [facility] 5 5 [facility]OW/MODER SEVERITY EMERGENCY 97103 LAMINE HATHAWAY 5 5 [facility] T VISIT P MODERATE SEVERITY EMERGENCY 18571 [facility] DEPT 4 4 ANTONIETA VISIT EMERGENCY HIGH PHYS SEVERITY& THREAT [facility] LAMINE - 4 4 [facility] OUTPATIEN INC T OFFICE 33587 [facility] 4 4 [place] G[facility] T VISIT INTERNAL 15 MED MINUTES HOSPITAL LAMINE - 4 4 [facility] OUTPATIEN INC T OFFICE 31158 [facility] OUTPATIEN 3 3 T NEW 45 MINUTES OFFICE 42714 HITESH PROCTOR OUTPATIEN 3 3 MIN MIN T VISIT 15 MINUTES OFFICE 52665 HITESH PROCTOR OUTPATIEN 3 3 MIN MIN T VISIT 15 MINUTES [facility], 2 2 REGISTRY OUTPATIEN & HOME HE T OFFICE 50342 HARPE[facility] HARPEL OUTPATIEN 2 2 MALIHA MALIHA T VISIT 15 MINUTES HOME NURSES HEALTH, 2 2 REGISTRY OUTPATIEN & HOME HE T OFFICE 05005 HITESH PROCTOR OUTPATIEN 2 2 MIN MIN T VISIT 15 MINUTES EMERGENCY 72310 FRED IBARRA DEPT 2 2 CYDNEY CYDNEY VISIT HIGH SEVERITY& THREAT [facility] LAMINE - 2 2 [facility] INPATIENT INC OFFICE 46603 HITESH HITESH OCONNOR 2 2 MIN MIN T VISIT 15 MINUTES OFFICE 02013 [facility]PE[facility] HARPEL OUTPATIEN 2 2 MALIHA MALIHA T VISIT 15 MINUTES OFFICE 64619 [facility] OUTPATIEN 2 2 MALIHA MALIHA T VISIT 15 MINUTES HOSPITAL LAMINE - 2 2 [facility] OUTPATIEN INC T PERIODIC 22958 [facility] HARPE[facility] PREVENTIV 2 2 MALIHA MALIHA E MED EST PATIENT 40-64YRS OFFICE 71035 HITESH CHENDONNIE OCONNOR 1 1 MIN MIN T VISIT 15 MINUTES OFFICE 35349 [facility] PETTEY CONSULTAT 1 1 PHYSICIAN MUMTAZ MARTINEZ NEW/ESTAB PATIENT 60 MIN HOSPITAL LAMINE - 1 1 [facility] OUTPATIEN INC T OFFICE 88947 HITESH CHENDONNIE OCONNOR 1 1 MIN MIN T VISIT 15 MINUTES OFFICE 59352 GUSTAVODONNIE DUNHAMEN 0 0 MIN MIN T VISIT 15 MINUTES EMERGENCY 41117 STEVE AHUMADA DEPT 0 0 EMERGENCY GRE VISIT SERVICES HIGH SEVERITY& THREAT [facility] LAMINE - 0 0 [facility] OUTPATIEN INC T EMERGENCY 90077 LAMINE 0 0 [facility] DEPARTMEN INC T VISIT MODERATE SEVERITY PERIODIC 28442 [facility] HARPEL PREVENTIV 0 0 PHYSICIAN MALIHA E MED EST GROUP PATIENT PCC 40-64YRS OFFICE 22659 HITESH PROCTOR OUTPATIEN 0 0 NISHI Tapia T VISIT 15 MINUTES OFFICE 61357 [facility] PROCTOR OUTPATIEN 9 9 NISHI Tapia T VISIT 15 MINUTES OFFICE 18805 ELVIN OSBORN 9 9 [facility] HOSPITAL 15 PROF SERV MINUTES HOSPITAL LAMINE - 9 9 [facility] OUTPATIEN INC T OFFICE 64353 HITESH PROCTOR OUTPATIEN 9 9 NISHI aTpia T VISIT 15 MINUTES HOSPITAL LAMINE - 9 9 [facility] OUTPATIEN [facility]PITAL LAMINE - 9 9 [facility] OUTPATIEN INC T OFFICE 19303 LAMINE KC, CONSULTAT 9 9 [facility] NEW/ESTAB PROF SERV PATIENT 80 MIN OFFICE 00374 SCHULSTAD SCHULSTAD CONSULTAT 9 9 , TANO SORENSENL INO NEW/ESTAB PATIENT 60 MIN HOSPITAL LAMINE - 9 9 [facility] OUTPATIEN [facility] HOSPITAL LAMINE - 9 9 [facility] OUTPATIEN INC T OFFICE 89925 SCHULSTAD SCHULSTAD CONSULTAT 9 9 , FRANCHESCA SORENSEN ION NEW/ESTAB PATIENT 60 MIN HOSPITAL LAMINE - 9 9 [facility] OUTPATIEN [facility] HOSPITAL LMAINE - 9 9 [facility] OUTPATIEN INC T OFFICE 97901 HITESH PROCTOR OUTPATIEN 9 9 NISHI Tapia T VISIT 15 MINUTES EMERGENCY 47172 CHRIS MARC, 9 9 [facility] T VISIT ON MODERATE SEVERITY HOSPITAL LAMINE - 9 9 [facility] OUTPATIEN INC T OFFICE 39601 DAVID HERNANDEZ OUTPATIEN 8 8 DIONY Liz T NEW 30 MINUTES OFFICE 30905 HITESH PROCTOR OUTPATIEN 8 8 NISHI Tpaia T VISIT 15 MINUTES HOSPITAL LAMINE - 8 8 [facility] INC PERIODIC [id number] ALBERT KRAMER, PREVENTIV 8 8 NIA Lord E MED EST PATIENT [id number] OFFICE 88930 HITESH [facility]CTOR[facility] NISHI Small NEW 30 MINUTES [facility] LAMINE - 8 8 [facility] T
--- OUTSIDE RECORDS SUMMARY | 2017-01-17 01:23 | External Medical Summary Rpt ---
Author Author , Organization [employer] Address Unknown Phone Unavailable Care Team Providers Care Pharmacy Technologist Name Role Phone [facility] Unavailable Unavailable [facility], [facility] ARNOLD, ARNOLD Unavailable Unavailable ARNOLD, ARNOLD [...] [facility] HERNANDEZ, HERNANDEZ Unavailable Unavailable [facility] Unavailable Unavailable SERVICE, [facility] Unavailable Unavailable SERVICE, [facility], [facility] Unavailable Unavailable [facility] Unavailable Unavailable [place], [facility] Unavailable Unavailable [place], [facility] CARON DO, Unavailable Unavailable CARON DO CRUTCHER Unavailable Unavailable ZAID NAM, Unavailable Unavailable ZA[facility] NAM JORDON MAR, Unavailable Unavailable JORDON MRA [facility] Unavailable [place] [facility] [place] [facility] Unavailable Unavailable [facility], [facility] Unavailable Unavailable TRANSPORTATION [facility], [facility] FRYMAN, FRYMAN Unavailable Unavailable FRYMAN EUG, FRYMAN Unavailable Unavailable EUG MONICO TROY, MONICO Unavailable Unavailable TROY BEA MARC S, Unavailable Unavailable BEA MARC HARPEL MALIHA, HARPEL Unavailable Unavailable MALIHA HARPEL MALIHA, HARPEL Unavailable Unavailable MALIHA ALBERT KRAMER R, Unavailable Unavailable HARSAVANAHL ABLERT R [facility] Unavailable Unavailable INC, [facility] Unavailable Unavailable H[facility]PITAL P, [facility] FEMI CARLOS[facility] Unavailable Unavailable FEMI CARLOS [facility] Unavailable Unavailable PCC, [facility], Unavailable Unavailable [facility] GEORGINA CANNON, Unavailable Unavailable GEORGINA CANNON [facility] Unavailable Unavailable [facility], [facility] Unavailable Unavailable IMAGING ASS, [facility] Unavailable Unavailable HOLDINGS, [facility] Unavailable Unavailable HOLDINGS, [facility], Unavailable Unavailable [facility], Unavailable Unavailable [facility] DIONY HERNANDEZ, Unavailable Unavailable DIONY HERNANDEZ JR DWI, SWAPNA Unavailable Unavailable JR DWI [facility] Unavailable Unavailable INTERNAL MED, [facility]available Unavailable ACTION, [facility] CARLEE RIVAS, CARLEE RIVAS Unavailable [...] PHARM #[id number] [facility] Unavailable Unavailable [id number] # [id number], [facility] [id number] # [id number] FR[facility] LOVE[facility] Unavailable Unavailable FRED [...] Unavailable [facility] Unavailable Unavailable [facility] Unavailable Unavailable PRACTICE, [facility], Unavailable Unavailable [place] [facility], Unavailable Unavailable [...] 11-28-2016 ARNOLD BRONCHITIS UNSPECIFIED I10 ESSENTIAL 10-27-2016 [facility] MEDICAL HYPERTENSIO IMAGING ASS N J441 CHRONIC 10-27-2016 [facility] OBSTRUCTIVE PHYSICIANS PULMONARY GROUP DZ W/EXACERBAT ION J984 OTHER 10-27-2016 [place] [facility]ICAL OF LUNG IMAGING ASS Z720 TOBACCO USE 10-27-2016 [facility] J479 BRONCHIECTA 10-25-2016 [facility] MEDICAL UNCOMPLICAT IMAGING ASS ED R0602 SHORTNESS 10-25-2016 [place] OF BREATH MEDICAL IMAGING ASS R590 LOCALIZED 10-25-2016 [place] ENLARGED MEDICAL LYMPH NODES IMAGING ASS I272 OTHER 10-24-2016 [facility] P HYPERTENSIO N I517 CARDIOMEGAL 10-24-2016 [facility] Y [facility] INC J8410 PULMONARY 10-24-2016 [facility] P Z9981 DEPENDENCE 10-24-2016 [facility] ON [facility] SUPPLEMENTA INC L OXYGEN R300 DYSURIA 03-30-2016 [facility] JET I2781 COR 12-28-2015 [facility] [place] [facility] CHRONIC [facility] I509 HEART 12-28-2015 [facility]OSPICE OF FAILURE THE UNSPECIFIED [place] R0902 HYPOXEMIA 12-28-2015 [facility] THE [place] A85892 OTHER LONG 07-07-2015 [facility] TERM PHYSICIANS CURRENT GROUP DRUG THERAPY Z853 PERSONAL 07-07-2015 [facility] HISTORY PHYSICIANS PRIMARY GROUP MALIG NEOPLASM BREAST R000 TACHYCARDIA 07-06-2015 [facility], UNSPECIFIED PLLC R05 COUGH 07-06-2015 [facility] SERVICE R918 OTHER 07-06-2015 [place] NONSPECIFIC MEDICAL ABNORMAL IMAGING ASS FINDING OF LUNG FIELD 486 PNEUMONIA, 05-18-2015 [facility] HOME UNSPECIFIED MEDICAL EQUIPME 496 CHRONIC 05-18-2015 [facility] OBSTRUCTION MEDICAL NEC EQUIPME 6237 POLYP OF 05-05-2015 [facility] 6269 UNS D/O 05-05-2015 [place] MEN[facility] FAMILY N&OTH ABN PRACTICE BLEED FE GNT TRACT 5990 URINARY 01-05-2015 LAB [facility] TRACT SARAH INFECTION HOLDINGS SITE NOT SPECIFIED 83770 11-25-2014 [facility] ION SER 4660 ACUTE 10-12-2014 [facility] BRONCHITIS [facility] P 515 POSTINFLAMM 10-12-2014 [facility] ATORY [facility] PULMONARY [facility] P FIBROSIS 92663 OTHER 10-12-2014 [place] DISEASES OF MEDICAL LUNG NOT IMAGING ASS ELSEWHERE CLASSIFIED 65199 SHORTNESS 10-12-2014 [place] [facility] 7862 COUGH 10-12-2014 [facility] 68649 ASTHMA, 05-26-2014 YOUR UNSPECIFIED PHARMACY , [employer] UNSPECIFIED STATUS 1330 SCABIES 05-24-2014 [facility] INTERNAL [facility] 1749 MALIGNANT 05-24-2014 [place] NEOPLASM OF MEDICAL BREAST IMAGING ASS UNSPECIFIED SITE 80227 OTHER 05-24-2014 [facility] SPECIFIED N EMERGENCY CARDIAC PHYS DYSRHYTHMIA S 35412 OBSTRUCTIVE 05-24-2014 [facility] CHRONIC N EMERGENCY BRONCHITIS PHYS WITH EXACERBATIO N 84150 OTHER 05-24-2014 [place] DYSPNEA AND MEDICAL IMAGING ASS RESPIRATORY ABNORMALITI ES V103 PERSONAL 05-24-2014 CADIZ HISTORY [facility] P NEOPLASM OF BREAST V148 PERSONAL 05-24-2014 [facility] HISTORY [facility] P SPEC MEDICINAL AGTS 2724 OTHER AND 03-12-2014 [facility] UNSPECIFIED [facility] INC HYPERLIPIDE SHOLA 2859 UNSPECIFIED 03-12-2014 [facility] ANEMIA [facility] INC V700 ROUTINE 03-12-2014 [facility]AL [facility] MEDICAL INC EXAM@HEALTH CARE FACL 4928 OTHER 05-21-2013 [facility] EMPHYSEMA 48559 REFLUX 05-21-2013 [facility] ESOPHAGITIS 7242 LUMBAGO 05-21-2013 [facility] 7336 TIETZES 05-03-2013 ARNOLD MIN DISEASE 4619 ACUTE 12-03-2012 ARN[facility] MIN SINUSITIS, UNSPECIFIED 7810 ABNORMAL 07-05-2012 [facility] INVOLUNTARY AMBULANCE MOVEMENTS SERVICE 16481 OSTEOARTHRO 03-08-2012 NURSES S INVLV MX REGISTRY & SITES BUT HOME HE NOT SPEC GEN V5789 OTHER 03-08-2012 NURSES SPECIFIED REGISTRY & REHABILITAT HOME HE ION PROCEDURE OTHER 6272 SYMPTOMATIC 03-01-2012 HARPEL MALIHA MENOPAUSAL/ FEMALE CLIMACTERIC STATES V1322 PERSONAL 03-01-2012 HARPEL MALIHA HISTORY OF CERVICAL DYSPLASIA 50552 UNSPECIFIED 02-20-2012 HITESH COPELAND CONSTIPATIO N 5199 UNSPECIFIED 02-09-2012 [place] DISEASE OF MEDICAL IMAGING ASS RESPIRATORY SYSTEM 7856 ENLARGEMENT 02-09-2012 [facility] OF LYMPH MEDICAL NODES IMAGING ASS 7850 UNSPECIFIED 02-08-2012 [facility] TACHYCARDIA SERVICE 7851 PALPITATION 02-08-2012 [facility] S AMBULANCE SERVICE 16770 HYPOXEMIA 02-08-2012 FRED LAMAS 75954 LUMP OR 11-21-2011 HARPEL MALIHA MASS IN BREAST 02165 DYSPLASIA 11-14-2011 HARPEL MALIHA OF CERVIX UNSPECIFIED 63047 OTHER 11-14-2011 [place] ABNORMAL MEDICAL FINDING IMAGING ASS RADIOLOGICA L EXAM BREAST 76422 PAP SMER 11-14-2011 HARPEL MALIHA CERV W/ATYPICAL SQUAMOUS CELLS UNDET V1041 PERSONAL 11-14-2011 HARPEL MALIHA HISTORY MALIGNANT NEOPLASM CERVIX UTERI V7612 OTHER 11-14-2011 [place] SCREENING MEDICAL MAMMOGRAM IMAGING ASS V7231 ROUTINE 09-27-2011 HARPEL MALIHA GYNECOLOGIC AL EXAMINATION V7641 SCREENING 09-27-2011 HARPEL MALIHA FOR MALIGNANT NEOPLASM OF THE RECTUM 46231 PAIN IN 03-11-2011 [place] JOINT MEDICAL PELVIC IMAGING ASS REGION AND THIGH 7243 SCIATICA 03-11-2011 [facility] 5110 PLEURISY 07-01-2010 HITESH COPELAND WITHOUT MENTION EFFUS/[place] [address] PAIN IN 02-23-2010 [facility] PROF SERV 7231 CERVICALGIA 02-23-2010 [facility] PROF SERV 7245 UNSPECIFIED 02-23-2010 [facility] 20226 CHEST PAIN 02-23-2010 [place] UNSPECIFIED [facility]ICAL IMAGING ASSOC[facility]ATES 85777 PAINFUL 02-23-2010 [facility] PROF SERV 98631 OTHER CHEST 02-23-2010 [facility] AMBULANCE SERVICE 31553 PAP SMER 12-15-2009 [facility] W/HI [place] [facility] GRADE SQUAMOUS INTRAEPITH LES V780 SCREENING 12-15-2009 [facility] DEFICIENCY GROUP PCC ANEMIA 58323 OTHER 10-16-2009 HITESH MALAISE AND NISHI Tapia FATIGUE 19151 ESOPHAGEAL 02-27-2009 HITESH REFLUX NISHI W 5759 UNSPECIFIED 02-27-2009 HITESH DISORDER NISHI Tapia OF GALLBLADDER 2720 PURE 02-10-2009 SCHULSTAD, HYPERCHOLES FRANCHESCA TEROLEMIA 67727 CALCU 02-10-2009 SCHULSTAD, GALLBLADD FRANCHESCA W/OTH CHOLECYST W/O MENTION OBST 26452 CALCU 02-10-2009 COMMUNITY GALLBLADD ANESTH OF W/O MENTION THE [facility] CHOLECYST/O BST 64010 ABDOMINAL 02-10-2009 SCHULSTAD, PAIN RIGHT FRANCHESCA UPPER QUADRANT 13052 UNSPECIFIED 12-05-2008 [place] ABNORMAL MEDICAL MAMMOGRAM IMAGING [facility] 44378 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-2008 [facility] DEGENERATIO N OF PERIPHERAL RETINA 91596 OTHER SIGN 11-20-2008 [place] AND SYMPTOM MEDICAL IN BREAST IMAGING ASS[facility]ATES 30463 ABDOMINAL 10-28-2008 [place] PAIN, MEDICAL UNSPECIFIED IMAGING SITE ASSOCIATES 59218 ABDOMINAL 10-28-2008 [facility] PAIN, MEM [facility] GENERALIZED INC 37020 ACUTE 10-15-2008 PEREZ GASTRITIS [employer] MENTION OF HEMORRHAGE 20269 WHEEZING 10-15-2008 [facility] AM[facility]ULANCE SERVICE 462 ACUTE 07-07-2008 DAVID, PHARYNGITIS DIONY Liz 79577 DYSPHAGIA 07-07-2008 DAVID, UNSPECIFIED DIONY Liz 7842 SWELLING 06-30-2008 HITESH MASS OR NISHI Tapia [place] IN HEAD AND NECK 84604 ABNORM 06-27-2008 [place] HRT MEDICAL RATE/RHYTHM IMAGING 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 93110 MAMMOGRAPHI 06-27-2008 [place] C MEDICAL MICROCALCIF IMAGING [...] 11 D RI TA 1 PH CH ID AR AR N- MA D CA CY [...] 1 90 30 RI 90 AR Ac SD 14 -3 -3 .0 TE 11 NO [...] 34 8- 8- 00 39 LD ve SD 59 20 20 AI ED 31 10 [...] US 03 93 8 # 03 93 SD 37 03 03 11 56 28 RI [...] 00 20 10 RI 80 AR Ac SD 17 -1 -2 .0 TE 43 NO [...] 20 DE ZA 60 09 09 RI SD 1 PH CH IN AR AR E [...] US OF CY NT HI AN A SD 00 10 05 03 30 30 EA [...] 00 60 30 EA 12 AR Ac SD 18 -3 -[address] 11 NO [...] US OF CY NT HI AN A SD 00 10 03 02 30 30 EA [...] 20 DE ZA 60 09 09 RI SD 1 PH CH IN AR AR E MA D 5 CY W MG OF TA CY BL NT ET HI AN A 49 02 02 00 28 14 EA 11 GA Ac 88 -1 -[address] 45 IN ti 40 2- 6- 00 SI 12 EY ve 54 20 20 DE 41 09 09 ID 0 PH CH AR AE MA L [...] ET OF CY NT HI AN A SD 00 10 01 01 30 30 EA [...] ET OF CY NT HI AN A SD 00 10 11 00 30 30 EA [...] CY OF CY NT HI AN A SD 00 09 09 00 30 30 EA [...] CY OF CY NT HI AN A SD 00 07 03 01 10 10 EA [...] 85%/>02 MEDICAL MEDICAL CONC AT EQUIPME EQUIPME [facility] FLW RATE PRTBLE E0431 JAIRSUSANA DE LOS SANTOSRELL GASEOUS 7 HOME HOME O2 SYS MEDICAL MEDICAL RENT; EQUIPME EQUIPME FLWMTR HUMIDFR&M ASK O2 CONC 1 E1390 JAIR LEDESMA PORT 7 HOME HOME 85%/>02 MEDICAL MEDICAL CONC AT EQUIPME EQUIPME PRS FLW RATE PRTBLE E0431 JAIR ADAM GASEOUS 7 HOME HOME O2 SYS MEDICAL MEDICAL RENT; EQUIPME EQUIPME FLWMTR HUMIDFR&M [facility] 20794 [facility] FRYMAN DISCHARGE 7 PHYSICIAN DAY S GROUP MANAGEMEN T 30 MIN/< RADIOLOGI 44077 [facility] C EXAM 7 MEDICAL CHEST 2 IMAGING VIEWS ASS FRONTAL&L ATERAL CT THORAX 98946 [facility] W/O 7 MEDICAL CONTRAST IMAGING MATERIAL ASS FINAL G9638 [facility] REPORTS 7 MEDICAL W/O DOC IMAGING 1/MORE ASS DOSE REDUCTION TECH FINAL RPT G9557 [facility] CT/MRI 7 MEDICAL CHEST/NCK IMAGING /U/S NO ASS THR NOD<1.0 CM ECG 07498 LAMINE OLIVA ROUTINE 7 [facility] W/LEAST P 12 LDS I&R ONLY RADIOLOGI 27434 [place] [facility] C 7 MEDICAL EXAMINATI IMAGING ON CHEST ASS SINGLE VIEW FRONTAL GROUND A0425 [facility] MILEAGE 7 AMBULANCE AMBULANCE PER SERVICE SERVICE STATUTE MILE AMB A0427 [facility] SERVICE 7 AMBULANCE AMBULANCE ALS SERVICE SERVICE EMERGENCY TRANSPORT LEVEL 1 O2 CONC 1 E1390 JAIR LEDESMA PORT 7 HOME HOME 85%/>02 MEDICAL MEDICAL CONC AT EQUIPME EQUIPME PRS FLW RATE PRTBLE E0431 AJIR JAIR GASEOUS 7 HOME HOME O2 SYS [...] Q5001 HOSPICE HOSPICE OME 6 [facility] THE [facility] PROV PT HOME/RESI DENCE URNLS DIP 85819 COMBINED COMBINED 6 PHYSICIAN PHYSICIAN STICK/TAB S LA S LA LET REAGENT AUTO MICROSCOP Y VOLUME 30686 COMBINED COMBINED MEASUREME 6 PHYSICIAN PHYSICIAN NT TIMED S LA S LA COLLECTIO N EACH HOSPICE/H Q5001 HOSPICE HOSPICE OME 6 OF THE [facility] PT HOME/RESI DENCE HOSPICE/ Q5001 HOSPICE HOSPICE OME 6 OF THE OF [facility] PT HOME/RESI DENCE HOSPICE/H Q5001 HOSPICE HOSPICE OME 6 OF THE OF [facility] PT HOME/RESI DENCE HOSPICE/ Q5001 HOSPICE HOSPICE OME 6 OF THE OF [facility] PT HOME/RESI DENCE HOSPICE/ Q5001 HOSPICE HOSPICE OME 6 OF THE OF [facility] PT HOME/RESI DENCE HOSPICE/ Q5001 HOSPICE HOSPICE OME 6 OF THE OF [facility] PT HOME/RESI DENCE HOSPICE/ Q5001 HOSPICE HOSPICE OME 6 OF THE [facility] PT HOME/RESI DENCE HOSPICE/ Q5001 HOSPICE HOSPICE OME 5 OF THE [facility] PT HOME/RESI [facility] [address] MANAGEMEN T 30 MIN/< SBSQ [address] 15 MINUTES SBSQ 17833 [facility] 5 [facility]YSICIAN [facility] CARE/DAY S GROUP [address] THORAX 61752 [place] BOUBACAR 5 MEDICAL CURTIS W/CONTRAS IMAGING T ASS MATERIAL RADIOLOGI 55887 [place] ZAID 5 MEDICAL NAM EXAMINATI IMAGING ON CHEST ASS SINGLE VIEW FRONTAL INITIAL [address] 50 MINUTES ECG 21369 LAMINE BARCENAS JR ROUTINE [address] [place] [address] W/LEAST P 12 LDS I&R ONLY AMB A0427 [facility] SERVICE 5 AMBULANCE AMBULANCE ALS SERVICE SERVICE EMERGENCY TRANSPORT LEVEL 1 GROUND A0425 [facility] 5 AMBULANCE AMBULANCE PER SERVICE SERVICE STATUTE MILE CRITICAL 36734 [facility] 5 PHYSICIAN U CURTIS ILL/INJUR S, PLLC [...] 85%/>02 MEDICAL MEDICAL CONC AT EQUIPME [facility] FLW RATE CULTURE 82921 [facility] BACTERIAL 5 SARAH SARAH HOLDINGS HOLDINGS QUANTTATI VE COLONY COUNT URINE O2 CONC 1 E1390 JAIR OLMEDO 5 HOME HOME 85%/>02 MEDICAL MEDICAL CONC AT EQUIPME EQUIPME PRSC FLW RATE PRTBLE E0431 JAIR ADAM GASEOUS 5 HOME HOME O2 SYS MEDICAL MEDICAL RENT; EQUIPME EQUIPME FLWMTR HUMIDFR&M ASK NONEMERGE A0100 [facility] NCY 5 R TAXI TRANSPORT TRANSPORT ATION; [...] RENT; EQUIPME EQUIPME FLWMTR HUMIDFR&M ASK RADIOLOGI 00700 LAMINE RAMAN C EXAM 5 [facility]OS[facility] [...] AZITHROMY INC INC MARISELA 500 MG OBSERVATI 75933 [facility] 4 [facility] GREGORIO DISCHARGE INTERNAL MED MANAGEMEN T PRESSURIZ 22789 LAMINE RAMAN ED/NONPRE 4 [facility] SSURIZED INC INC INHALATIO N TREATMENT NONINVASI 78311 LAMINE RAMAN VE 4 [facility] EAR/PULSE INC INC OXIMETRY SINGLE DETER BASIC 91314 LAMINE RAMAN METABOLIC 4 [facility] PANEL INC [facility] G0378 [facility] OBSERVATI 4 [facility] ON INC INC SERVICE PER HOUR ADMN SET A7005 YOUR YOUR W/SM VOL 4 PHARMACY PHARMACY [facility] NEBUL[facility] NON-DISPB L BLOOD 09171 LAMINE RAMAN COUNT 4 [facility] COMPLETE INC INC AUTO&AUTO DIFRNTL WBC SMR PRIM 68479 LAMINE RAMAN SRC 4 [facility] GRAM/GIEM INC INC SA STAIN BCT FUNGI/COLLEEN L HOSP[facility] G0378 LAMINE RAMAN OBSERVATI 4 [facility] ON INC INC SERVICE PER HOUR INJECTION J0456 LAMINE RAMAN 4 MEM H[facility] AZITHROMY INC INC MARISELA 500 MG NONINVASI 68430 LAMINE RAMAN VE 4 [facility] EAR/PULSE INC INC OXIMETRY SINGLE DETER BASIC 31769 LAMINE RAMAN METABOLIC 4 [facility] PANEL INC INC CALCIUM TOTAL PRESSURIZ 42502 LAMINE RAMAN ED/NONPRE 4 [facility] SSURIZED INC INC INHALATIO N TREATMENT CUL BACT 65526 LMAINE RAMAN XCPT 4 [facility] URINE INC INC BLOOD/STO OL AEROBIC ISOL BLOOD 43939 LAMINE RAMAN GASES ANY 4 [facility] INC INC COMBINATI ON PH PCO2 PO2 CO2 HCO3 NATRIURET 55314 LAMINE RAMAN IC 4 [facility]OSP PEPTIDE INC INC ECG 30066 [facility] ROUTINE 4 ANTONIETA ECG EMERGENCY W/LEAST PHYS 12 LDS I&R ONLY INITIAL 27851 [place] [facility] OBSERVATI 4 [facility] ON INTERNAL CARE/DAY MED 30 MINUTES PRESSURIZ 79543 LAMINE RAMAN ED/NONPRE 4 [facility]OS[facility] SSURIZED INC INC INHALATIO N TREATMENT RADIOLOGI 47032 [facility] C 4 MEDICAL NAM EXAMINATI IMAGING ON CHEST ASS SINGLE VIEW FRONTAL CT THORAX 48991 JACKELYN MAR 4 MEDICAL NAM W/CONTRAS IMAGING T ASS [facility] G0378 LAMINE RAMAN OBSERVATI 4 [facility] [place] [address] LAMINE RAMAN ANGIOGRAP 4 [facility] HY CHEST INC INC W/CONTRAS T/NONCONT RAST LOCM Q9967 LAMINE RAMAN 300-399 4 [facility] MG/ML INC INC IODINE CONCENTRA TION PER ML BLOOD 76856 LAMINE RAMAN COUNT 4 [facility] COMPLETE INC INC AUTO&AUTO DIFRNTL WBC CULTURE 52230 LAMINE RAMAN BACTERIAL 4 [facility] BLOOD INC INC AEROBIC W/ID ISOLATES ECG 15012 LAMINE RAMAN ROUTINE 4 [facility] ECG INC INC W/LEAST 12 LDS TRCG ONLY W/O I&[place] [address] LAMINE RAMAN TROPONIN 4 MEM [facility] QUANTITAT INC INC JUAN COMPREHEN 81618 LAMINE RAMAN SIVE 4 MEM H[facility]OS[facility] METABOLIC INC INC PANEL TOBACCO 34457 LAMINE RAMAN USE 4 [facility]OS[facility] CESSATION INC INC INTERMEDI ATE 3-10 MINUTES O2 CONC 1 E1390 JAIR DAAM DEL PORT 4 HOME HOME 85%/>02 MEDICAL MEDICAL CONC AT EQUIPME EQUIPME [facility] FLW RATE PRTBLE E0431 JAIR ADAM GASEOUS 4 HOME HOME O2 SYS MEDICAL MEDICAL RENT; EQUIPME EQUIPME FLWMTR HUMIDFR&M ASK O2 CONC 1 E1390 JAIR ADAM DEL PORT 4 HOME HOME 85%/>02 MEDICAL MEDICAL CONC AT EQUIPME EQUIPME PRS FLW RATE O2 CONC 1 E1390 JAIR ADAM DEL PORT 4 HOME HOME 85%/>02 MEDICAL MEDICAL CONC AT EQUIPME EQUIPME [facility] FLW RATE NONEMERG A0120 [facility] FEDERATED TRNSPRT: 4 TRANS [facility] TRANSPORT SERVBLUEG MTN ATION SER INES AREA/OTH SYS COMPREHEN 63986 LAMINE RAMAN SIVE 4 MEM [facility]OS[facility] METABOLIC INC INC PANEL BLOOD 13540 LAMINE RAMAN COUNT 4 [facility] COMPLETE INC INC AUTO&[place] [address] LAMINE RAMAN THYROID 4 MEM H[facility]OS[facility] STIMULATI INC INC NG HORMONE TSH LIPID 14693 LAMINE RAMAN PANEL 4 [facility]OS[facility] INC INC URNLS DIP 03429 LAMINE RAMAN 4 [facility] STICK/TAB INC INC LET REAGENT AUTO MICROSCOP Y CULTURE 80547 LAMINE RAMAN BACTERIAL 4 MEM HOSP MEM [...] EQUIPME EQUIPME FLWMTR HUMIDFR&M ASK AMB A0427 [facility] SERVICE 2 AMBULANCE AMBULANCE ALS SERVICE SERVICE EMERGENCY TRANSPORT LEVEL 1 GROUND A0425 [facility]UL[facility] PER SERVICE SERVICE STATUTE MILE O2 CONC 1 E1390 JAIR LEDESMA PORT 2 HOME HOME 85%/>02 MEDICAL MEDICAL CONC AT EQUIPME EQUIPME PRSC FLW RATE PRTBLE E0431 JAIR ADAM GASEOUS 2 HOME HOME O2 SYS MEDICAL MEDICAL RENT; EQUIPME EQUIPME FLWMTR HUMIDFR&M ASK NONEMERG A0120 [facility] TRNSPRT: 2 [facility] ACTION ACTION NVN AREA/OTH SYS NONEMERG A0120 [facility] TRNSPRT: 2 [facility] ACTION ACTION [facility] AREA/OT SYS O2 CONC 1 E1390 JIAR ADAM DEL PORT 2 HOME HOME 85%/>02 MEDICAL MEDICAL CONC AT EQUIPME EQUIPME PRSC FLW RATE PRTBLE E0431 JAIR ADAM GASEOUS 2 HOME HOME O2 SYS MEDICAL MEDICAL RENT; EQUIPME EQUIPME FLWMTR HUMIDFR&M ASK NONEMERG A0120 [facility] TRNSPRT: 2 [facility] ACTION ACTION MTN AREA/OTH SYS O2 [...] MEDICAL MEDICAL RENT; EQUIPME EQUIPME FLWMTR HUMIDFR&M [facility] [id number] MCKEMIE MCKEMIE DISCHARGE 2 JR CYDNEY JR CYDNEY DAY MANAGEMEN T 30 MIN/< SBSQ 19783 [facility] 2 GREGORIO GREGORIO CARE/DAY 25 MINUTES SBSQ 56646 [facility] 2 GREGORIO GREGORIO CARE/DAY 25 MINUTES ECG 64142 BESSON BESSON ROUTINE 2 GREGORIO GREGORIO ECG W/LEAST 12 LDS I&R ONLY SBSQ 12555 [facility] 2 GREGORIO GREGORIO CARE/DAY 25 MINUTES SBSQ 27618 [facility] 2 GREGORIO GREGORIO CARE/DAY [address] THORAX 83037 [facility] 2 MEDICAL NAM W/CONTRAS IMAGING T ASS MATERIAL RADIOLOGI 72241 [facility] C EXAM 2 MEDICAL NAM CHEST 2 IMAGING VIEWS ASS FRONTAL&L ATERAL ECG 63572 [facility] ROUTINE 2 GREGORIO GREGORIO ECG W/LEAST 12 LDS I&R ONLY INITIAL 16728 [facility] 2 GREGORIO GREGORIO CARE/DAY 50 MINUTES GROUND A0425 [facility] MILEAGE 2 AMBULANCE AMBULANCE PER SERVICE SERVICE STATUTE MILE AMB A0427 [facility] SERVICE 2 AMBULANCE AMBULANCE ALS SERVICE SERVICE EMERGENCY TRANSPORT LEVEL 1 RADIOLOGI 25998 [facility] C 2 MEDICAL NAM EXAMINATI IMAGING ON CHEST ASS SINGLE VIEW FRONTAL RADIOLOGI 50850 [facility] C 2 MEDICAL NAM EXAMINATI IMAGING ON CHEST ASS SINGLE VIEW FRONTAL AMB A0427 [facility] SERVICE 2 AMBULANCE AMBULANCE ALS SERVICE SERVICE EMERGENCY TRANSPORT LEVEL 1 GROUND A0425 [facility] PER SERVICE SERVICE STATUTE MILE NONEMERG A0120 [facility] TRNSPRT: 2 [facility] ACTION ACTION [facility] AREA/OTH SYS SCREENING G0202 LAMINE RAMAN [facility] [employer] [facility] HY PREETHI INCL CAD WHEN PERFORMD - [id number] LAMINE RAMAN AIDED 2 [facility] DETECTION INC INC SCREENING MAMMOGRAP HY CYTP 11020 BIO BIO CERVICAL/ 2 REFERNCE 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 REQ IES IES INTERP PHYSICIAN CYTP C/V 78743 BIO BIO AUTO THIN 2 REFERNCE REFERNCE LYR LABORATOR LABORATOR PREPJ SCR IES IES MNL RESCR PHYS NONEMERGE A0100 [facility] [place] [facility] NCY 1 COMMUNITY TRANSPORT ACTION ATION; TAXI NONEMERGE A0100 [facility] CAB NCY 1 COMMUNITY TRANSPORT ACTION ATION; TAXI RADEX HIP 15835 [facility] MAR 1 MEDICAL NAM UNILATERA IMAGING L ASS COMPLETE MINIMUM 2 VIEWS NONEMERGE A0100 [facility] NCY 1 COMMUNITY TRANSPORT ACTION ATION; TAXI AMB A0427 [facility] SERVICE 0 AMBULANCE AMBULANCE ALS SERVICE SERVICE EMERGENCY TRANSPORT LEVEL 1 GROUND A0425 [facility] MILEAGE 0 AMBULANCE AMBULANCE PER SERVICE SERVICE STATUTE MILE AMB A0422 [facility] OXYGEN&O2 0 AMBULANCE AMBULANCE SUPPLIES SERVICE SERVICE LIFE SUSTAININ G SITUATION COMPREHEN 89884 LAMINE LAMINE SIVE 0 [facility] METABOLIC INC INC PANEL ECG 38661 LAMINEFLORENCIO RAMAN ROUTINE 0 [facility] ECG INC INC W/LEAST 12 LDS TRCG ONLY W/O I&R RADIOLOGI 59890 [place] ZA[place] C EXAM 0 MEDICAL [place] CHEST 2 IMAGING VIEWS ASSOCIATE FRONTAL&L S ATERAL BLOOD 58756 LAMINEFLORENCIO CÁRDENASON COUNT 0 [facility] COMPLETE INC INC AUTO&AUTO DIFRNTL WBC FIBRIN 71713 LAMINE RAMAN DGRADJ 0 MEM [facility] PRODUCTS INC INC D-DIMER QUAL/[place] [address] [facility] ZAID, ANGIOGRAP 0 MEDICAL [place] HY CHEST IMAGING W/CONTRAS ASSOCIATE T/NONCONT S RAST ECG 48662 STEVE AHUMADA ROUTINE 0 EMERGENCY GRE ECG SERVICES W/LEAST 12 LDS I&R ONLY IADNA 27239 [facility] [place] 0 [place] INC TRACHOMAT IS AMPLIFIED PROBE TQ COLLECTIO 97646 [facility] N 0 PHYSICIAN MALIHA CAPILLARY GROUP BLOOD PCC SPECIMEN IADNA 73787 [facility] [place] 0 [place] [facility] [place] INC GONORRHOE AE AMPLIFIED PROBE TQ IADNA 57976 [facility] [place] 0 [place] INC VIRUS HUMAN AMPLIFIED PROBE TQ CYTP C/V 04-13-201 55026 [facility] AUTO THIN 0 [place] [facility] [place] INC LYR PREPJ SCR MNL RESCR PHYS CYTP 37747 [facility] CERVICAL/ 0 VAGINAL INDIANAPO INDIANAPO REQ LIS PC LIS PC INTERP PHYSICIAN BLOOD 85966 [facility] COUNT 0 PHYSICIAN MALIHA HEMOGLOBI GROUP N PCC BLOOD 90008 LAMINE RAMAN COUNT 9 [facility] COMPLETE INC INC AUTO&AUTO DIFRNTL WBC COMPREHEN 67540 LAMINE RAMAN SIVE 9 [facility] METABOLIC INC INC PANEL ANES 01284 COMMUNITY NATHALY, INTRAPERI 9 ANESTH JACK A TONEAL OF THE UPPER BLUEGRASS ABDOMEN W/LAPS NOS LEVEL III 69385 PATHOLOGY PATHOLOGY SURG 9 & & PATHOLOGY CYTOLOGY CYTOLOGY LAB LAB GROSS&TROY ROSCOPIC EXAM LAPAROSCO 68064 GEENA SCHULSTAFIA PY SURG 9 , FRANCHESCA , [place] [address] LAMINE RAMAN INFUSION 9 [facility] THERAPY INC INC PROPHYLAX IS/DX EA HOUR PRESSURIZ 77996 LAMINE RAMAN ED/NONPRE 9 [facility] SSURIZED [place] [address] LAMINE RAMAN INFUSION 9 [facility] THERAPY/P INC INC ROPHYLAXI S /DX 1ST TO 1 HR THERAPEUT 30776 LAMINE RAMAN IC 9 [facility] INJECTION INC INC IV PUSH EACH NEW DRUG LAPAROSCO 5123 LAMINE RAMAN PIC 9 [facility] CHOLECYST INC INC ECTOMY ECG 83968 LAMINE MCLEAN ROUTINE 9 [facility] FERN W/LEAST PROF SERV 12 LDS I&R ONLY ECG 19538 LAMINE RAMAN ROUTINE 9 [facility] ECG INC INC W/LEAST 12 LDS TRCG ONLY W/O I&R BLOOD 08827 LAMINE RAMAN COUNT 9 [facility] COMPLETE INC INC AUTO&AUTO DIFRNTL WBC PREOP 93429 RYLEY PORRAS 9 [facility]ICAL [place] IMAGING LOCALIZAT ASSOCIATE ION WIRE S BREAST RADIOLOGI 97414 JACKELYN MAR RADHIKA 9 MEDICAL [place] EXAMINATI IMAGING ON ASSOCIATE SURGICAL [place] SPE[place]IM[place] L[place] V [address]115 PATHOLOGY PATHOLOGY SURG 9 & & PATHOLOGY CYTOLOGY CYTOLOGY LAB LAB GROSS&[place] [address] JACKELYN MAR GUIDANCE 9 MEDICAL [place] NEEDLE IMAGING PLACEMENT ASSOCIATE IMG S&I S PATH 29250 ZARINA GIL 9 DIONNE & CARON C SURG DUBILIER CYTOLOGIC EXAM INITIAL SITE ANES 15145 ON LICENSE OF [facility] MAINOR INTEShalonda 9 ANESTH FERN F EXTREMITI OF THE ES ANT BLUEGRASS TRUNK & PERINEUM NOS US BREAST 79928 ERROL PORRAS 9 MEDICAL [place] TIME IMAGING W/IMAGE ASSOCIATE DOCUMENTA S TION THERAPEUT 43222 LAMINE RAMAN IC 9 [facility] INJECTION [place] [address] LAMINE RAMAN INFUSION 9 [facility] THERAPY/P INC INC ROPHYLAXI S /DX 1ST TO 1 HR PRESSURIZ 77907 LAMINE RAMAN ED/NONPRE 9 [facility] [place]URIZED [place] [address] LAMIEN RAMAN INFUSION 9 [facility] THERAPY INC INC PROPHYLAX IS/DX EA HOUR MASTECTOM 68074 GEENA SEAY Y PARTIAL 9 , FRANCHESCA , FRANCHESCA BX/EXC 75147 GEENA SEAY LYMPH 9 , FRANCHESCA , FRANCHESCA NODE OPEN DEEP AXILLARY NODE INJ 18472 LAMINE RAMAN RADIOACTI 9 [facility] VE TRACER INC INC FOR ID OF SENTINEL NODE SUBTOTAL 8523 LAMINE RAMAN MASTECTOM 9 [facility] Y INC INC EXCISION 4023 LAMINE RAMAN OF 9 [facility] AXILLARY INC INC LYMPH NODE BASIC 39720 LAMINE RAMAN METABOLIC 9 [facility] PANEL INC INC CALCIUM TOTAL ECG 34470 LAMINE GRIMALDOSON, ROUTINE 9 [facility] W/LEAST PROF SERV 12 LDS I&R ONLY BLOOD 87987 LAMINE RAMAN COUNT 9 [facility] COMPLETE INC INC AUTO&AUTO DIFRNTL WBC ECG 85023 LAMINE RAMAN ROUTINE 9 [facility] ECG INC INC W/LEAST 12 LDS TRCG ONLY W/O I&R OPHTH 88895 [facility] 9 VISION FEMI A XM&EVAL COMPRHNSV ESTAB PT 1/> M/[facility] 28074 PATHOLOGY PATHOLOGY DYANA 9 & & TUMOR CYTOLOGY CYTOLOGY IMHCHEM LAB [place] [address] PATHOLOGY PATHOLOGY SURG 9 & & PATHOLOGY CYTOLOGY CYTOLOGY LAB LAB GROSS&[place] [address] LAMINE RAMAN GUIDANCE 9 [facility] NEEDLE INC INC PLACEMENT IMG S&I BREAST 91448 [place] ZAID, BIOPSY 9 MEDICAL [place] VACUUM IMAGING ASSISTED/ ASSOCIATE ROTATING S DEVICE MAMMOGRAP 70175 LAMINE RAMAN HY 9 [facility] UNILATERA INC INC L US BREAST 49099 [place] ZAID, REAL 9 [facility] [place] TIME IMAGING W/IMAGE ASSOCIATE DOCUMENTA S TION CLOSED 8511 LAMINE RAMAN BIOPSY OF 9 [facility] BREAST INC INC US BREAST 66317 LAMINE RAMAN REAL 9 [facility] TIME [place] [address] [place] ZAID, ABDOMINAL 9 [facility]ICAL [place] REAL IMAGING TIME ASSOCIATE W/IMAGE S LIMITED BLOOD 80683 LAMINE RAMAN COUNT 9 [facility] COMPLETE INC INC AUTO&[place] [address] LAMINE RAMAN LIPASE 9 [facility] INC INC COMPREHEN 78712 LAMINE RAMAN SIVE 9 [facility] [place] [address] LAMINE RAMAN AMYLASE 9 [facility] INC INC GROUND A0425 [facility] AMBULANCE PER SERVICE SERVICE STATUTE MILE AMB A0427 [facility] SERVICE 9 AMBULANCE AMBULANCE ALS SERVICE SERVICE EMERGENCY TRANSPORT LEVEL 1 US BREAST 41237 LAMINE RAMAN REAL 8 [facility] TIME INC INC W/IMAGE DOCUMENTA TION MAMMOGRAP 53841 LAMINE RAMAN HY 8 [facility] BILATERAL INC INC CYTP 46524 [facility] [place], CERV/VAG 8 [place] GEORGIN[place] D AUTO THIN LAYER PREP MNL SCREEN IADNA 03075 [facility] [place], CHLAMYDIA 8 [place] GE[place] D TRACHOMAT IS AMPLIFIED PROBE TQ BLOOD 37043 ALBERT KRAMER, OCCULT 8 SHAHIDAL MD ALBERT Lord PEROXIDAS E ACTV QUAL FECES 1-3 SPEC BLOOD 52751 ALBERT KRAMER, COUNT 8 SHAHIDAL MD ALBERT Lord HEMOGLOBI N IADNA 52245 [facility] [place], [place] 8 [place] D GONORRHOE AE AMPLIFIED PROBE TQ CYTP 59319 [facility] [place], CERVICAL/ 8 [place] D VAGINAL REQ INTERP PHYSICIAN IADNA 54398 [facility] [place], [place] 8 [place] D VIRUS HUMAN AMPLIFIED PROBE TQ LIPID 93394 LAMINE LAMINE PANEL 8 [facility] INC INC HEPATIC 26020 LAMINE RAMAN FUNCTION 8 [facility] PANEL INC INC Encounters Encounter Start End Date Code Location Performer Type Date OFFICE 83372 HITESH PROCTOR OUTPATIEN 7 7 T [facility] 30 MINUTES [facility] LAMINE - 7 7 [facility] INPATIENT INC [facility]OS[facility]ICE HOSPICE 6 6 OF [facility]OS[facility] HOSPICE 6 6 OF [facility] 6 6 OF [facility] HOSPICE 6 6 OF [facility] [place] [address] [facility] 6 6 OF THE PATIENT HELDER MOD-HI SEVERITY 45 MINUTES HOSPICE HOSPICE 6 6 OF [facility] H[facility]PICE HOSPICE 6 6 OF [facility] H[facility]ICE HOSPICE 6 6 OF [facility] HOSPICE 6 6 OF [facility]OS[facility]ICE HOSPICE 5 5 OF [facility] HOSPICE 5 5 OF [facility] OFFICE 41625 SOILA HOLLEY OUTPATIEN 5 5 R FAMILY AMI T VISIT PRACTICE 15 MINUTES HOSPITAL LAMINE - 5 5 [facility] OUTPATIEN INC T EMERGENCY 94932 [facility] 5 5 [facility] LOW/MODER SEVERITY EMERGENCY 55406 LAMINE HATHAWAY 5 5 [facility] T VISIT P MODERATE SEVERITY EMERGENCY 95587 [facility] DEPT 4 4 ANTONIETA VISIT EMERGENCY HIGH PHYS SEVERITY& THREAT [facility] LAMINE - 4 4 [facility] OUTPATIEN INC T OFFICE 36459 [facility] OUT[facility] 4 4 [place] GREGORIO T VISIT INTERNAL 15 MED MINUTES HOSPITAL LAMINE - 4 4 [facility] OUTPATIEN INC T OFFICE 45994 [facility] OUTPATIEN 3 3 T NEW 45 MINUTES OFFICE 54298 HITESH PROCTOR OUTPATIEN 3 3 MIN MIN T VISIT 15 MINUTES OFFICE 45107 HITESH PROCTOR OUTPATIEN 3 3 MIN MIN T VISIT 15 MINUTES [facility], 2 2 REGISTRY OUTPATIEN & HOME HE T OFFICE 81706 HARPEL HARPEL OUTPATIEN 2 2 MALIHA MALIHA T VISIT 15 MINUTES [facility], 2 2 REGISTRY OUTPATIEN & HOME HE T OFFICE 50215 HITESH PROCTOR OUTPATIEN 2 2 MIN MIN T VISIT 15 MINUTES EMERGENCY 01287 [facility] IBARRA DEPT 2 2 CYDNEY CYDNEY VISIT HIGH SEVERITY& THREAT [facility] LAMINE - 2 2 [facility] INPATIENT INC OFFICE 93057 HITESH HITESH OCONNOR 2 2 MIN MIN T VISIT 15 MINUTES OFFICE 37123 HARPE[facility] HARPEL OUTPATIEN 2 2 MALIHA MALIHA T VISIT 15 MINUTES OFFICE 74633 [facility] HARPEL OUTPATIEN 2 2 MALIHA MALIHA T VISIT 15 MINUTES HOSPITAL LAMINE - 2 2 [facility] OUTPATIEN INC T PERIODIC 57186 [facility] HARPEL PREVENTIV 2 2 MALIHA MALIHA E MED EST PATIENT 40-64YRS OFFICE 58843 HITESH CHENDONNIE OCONNOR 1 1 MIN MIN T VISIT 15 MINUTES OFFICE 96280 [facility] CONSULTAT 1 1 PHYSICIAN MUMTAZ MARTINEZ NEW/ESTAB PATIENT 60 MIN HOSPITAL LAMINE - 1 1 [facility] OUTPATIEN INC T OFFICE 23513 HITESH CHENDONNIE OCONNOR 1 1 MIN MIN T VISIT 15 MINUTES OFFICE 49590 GUSTAVODONNIE DUNHAMEN 0 0 MIN MIN T VISIT 15 MINUTES EMERGENCY 18003 STEVE AHUMADA DEPT 0 0 EMERGENCY GRE VISIT SERVICES HIGH SEVERITY& THREAT [facility] LAMINE - 0 0 [facility] OUTPATIEN INC T EMERGENCY 56537 LAMINE 0 0 [facility] DEPARTMEN INC T VISIT MODERATE SEVERITY PERIODIC 49921 [facility] PREVENTIV 0 0 PHYSICIAN MALIHA E MED EST GROUP PATIENT PCC 40-64YRS OFFICE 81557 HITESH PROCTOR OUTPATIEN 0 0 NISHI Tapia T VISIT 15 MINUTES OFFICE 96708 HITESH PROCTOR OUTPATIEN 9 9 NISHI Tapia T VISIT 15 MINUTES OFFICE 84522 ELVIN OSBORN 9 9 [facility] VISIT HOSPITAL 15 PROF SERV MINUTES HOSPITAL LAMINE - 9 9 [facility] OUTPATIEN INC T OFFICE 23131 HITESH PROCTOR OUTPATIEN 9 9 NISHI Tapia T VISIT 15 MINUTES HOSPITAL LAMINE - 9 9 [facility] OUTPATIEN [facility] LAMINE - 9 9 [facility] OUTPATIEN INC T OFFICE 16072 LAMINE KC, CONSULTAT 9 9 [facility] NEW/ESTAB PROF SERV PATIENT 80 MIN OFFICE 94100 SCHULSTAD SCHULSTAD CONSULTAT 9 9 , TANO SORENSENL INO NEW/ESTAB PATIENT 60 MIN HOSPITAL LAMINE - 9 9 [facility] OUTPATIEN [facility] LAMINE - 9 9 [facility] OUTPATIEN INC T OFFICE 15611 [facility] SCHULSTAD CONSULTAT 9 9 , FRANCHESCA SORENSEN ION NEW/ESTAB PATIENT 60 MIN HOSPITAL LAMINE - 9 9 [facility] OUTPATIEN [facility] LAMINE - 9 9 [facility] OUTPATIEN INC T OFFICE 13723 HITESH PROCTOR OUTPATIEN 9 9 NISHI Tapia T VISIT 15 MINUTES EMERGENCY 92677 CHRIS MARC, 9 9 [facility] T VISIT ON MODERATE SEVERITY HOSPITAL LAMINE - 9 9 [facility] OUTPATIEN INC T OFFICE 17700 DAVID HERNANDEZ OUTPATIEN 8 8 DIONY Liz T NEW 30 MINUTES OFFICE 73203 HITESH PROCTOR OUTPATIEN 8 8 NISHI Tapia T VISIT 15 MINUTES HOSPITAL LAMINE - 8 8 [facility] OUTPATIEN INC PERIODIC 05186 ALBERT KRAMER, PREVENTIV 8 8 NIA Lord E MED EST PATIENT 40-64YRS OFFICE 65234 HITESH PROCTOR, [facility] 8 NISHI Small NEW 30 MINUTES [facility] LAMINE - 8 8 [facility] OUTPATIEN [facility] T
[2017-01-17 01:24] LABS: HEMOGLOBIN 13.6 g/dL (12.2-16.2)
--- OUTSIDE RECORDS SUMMARY | 2017-01-17 01:25 | External Medical Summary Rpt ---
Demographics Preferred Language Anguillan Marital Status Unknown Holiness Affiliation Unknown Race Unknown Ethnic Group Unknown Author Author , Organization [employer] Address Unknown Phone Unavailable Purpose Continuity of Care Document - through 2016 Immunization Unable to retrieve immunization data due to connection failure with Immunization Registry. Please try again later.
--- OUTSIDE RECORDS SUMMARY | 2017-01-17 01:25 | External Medical Summary Rpt ---
Demographics Preferred Language Ugandan Marital Status Unknown Latter Day Affiliation Unknown Race Unknown Ethnic Group Unknown Author Author , Organization [employer] Address Unknown Phone Unavailable Purpose Continuity of Care Document - through 2016 Immunization Unable to retrieve immunization data due to connection failure with Immunization Registry. Please try again later.
--- OUTSIDE RECORDS SUMMARY | 2017-01-17 01:25 | External Medical Summary Rpt ---
Author Author CHANDA Asencio, [employer] Organization [employer] Address Unknown Phone Unavailable
[2017-01-17 02:10] LABS: BUN 26 mg/dL (7-18); GFR (ESTIMATED) 57 ML/MIN (59-)
[2017-01-17 02:47] LABS: NEUTROPHILS 66 % (42-76)
[2017-01-17 02:48] LABS: ARTERIAL ABE 16.6 MMOL/L (-2.4-+2.3); ARTERIAL TCO2 -21.5 MMOL/L (23-27)
[2017-01-17 02:49] LABS: ALLEN'S TEST NON APPLICABLE; OXYGEN 100
[2017-01-17 03:08] LABS: ALLEN'S TEST NON APPLICABLE; ARTERIAL TCO2 14.5 MMOL/L (23-27); OXYGEN 100; VENT RATE 18
[2017-01-17 03:53] VITALS: BP 84/66
[2017-01-17 04:14] LABS: ALLEN'S TEST NON APPLICABLE; ARTERIAL ABE -19.5 MMOL/L (-2.4-+2.3); OXYGEN 100; VENT RATE 18
--- NOTE | 2017-01-17 05:59 | RADIOLOGY REPORT PS360 ---
CHEST-PORTABLE 01/17/2017 at 0113 hours HISTORY: Shortness of breath, respiratory failure sob ORDERING PHYSICIAN: Ashley Nugent MD PATIENT AGE: 56 years COMPARISON: 10/27/2016 FINDINGS: Cardiomegaly with pulmonary venous congestion consistent with CHF. Chronic interstitial changes are noted. Focal parenchymal opacity once again noted right upper lobe. There is superimposed increased density in the lower lobes which may be due to pulmonary edema or pneumonia. IMPRESSION: Chronic changes with CHF and bilateral lower lobe edema versus pneumonia
--- NOTE | 2017-01-17 06:00 | RADIOLOGY REPORT PS360 ---
CHEST-PORTABLE 01/17/2017 at 0233 hours HISTORY: Shortness of air, respiratory failure, endotracheal tube placement SOA ORDERING PHYSICIAN: Ashley Nugent MD PATIENT AGE: 56 years COMPARISON: Same day FINDINGS: Limited exam with underpenetration and overlying artifact. Endotracheal tube has been placed with the tip 2.5 cm above the aurora. There remains cardiomegaly with pulmonary venous congestion, interstitial edema with superimposed pneumonia or edema in the lower lobes and in the left midlung. IMPRESSION: 1. Endotracheal tube present with the tip 2.5 cm above the aurora. 2. CHF with chronic change with superimposed edema and/or pneumonia
== END 2017-01-17 04:17 | disposition still patient (30) ==
LOC: ER 00:51 → 2ND 02:00 → ER 02:00 → ICU 03:01 → 2ND 03:01 → ICU 03:01 → ER 04:17
PROVIDERS: Emergency Medicine
PROC: 0BH17EZ Insertion of Endotracheal Airway into Trachea, Via Natural or Artificial Opening (ICD-10-PCS; principal; 2017-01-17)
DX: R09.2 Respiratory arrest (principal); J44.1 Chronic obstructive pulmonary disease with (acute) exacerbation; Z72.0 Tobacco use; R50.9 Fever, unspecified
CPT/HCPCS: J0456; J2405